=== PATIENT | male | born 1945 | race Caucasian/White ===

== ENCOUNTER → 2023-10-04 11:05 | Outpatient (REF) | payer MEDICARE, BC, SELFPAY | LOC: RAD 11:05 | PROVIDERS: ATTENDING PHYSICIAN Nurse Practitioner Family | DX: L03.116 Cellulitis of left lower limb (principal) | CPT/HCPCS: 73564 ==

== ENCOUNTER → 2023-12-18 11:47 | Outpatient (REF) | payer MEDICARE, BC, SELFPAY | LOC: CLAB 11:47 | PROVIDERS: ATTENDING PHYSICIAN Specialist | DX: C67.9 Malignant neoplasm of bladder, unspecified (principal) | CPT/HCPCS: 88112 ==

== ENCOUNTER → 2023-12-30 12:50 | Outpatient (REF) | payer MEDICARE, BC, SELFPAY | LOC: RAD 12:50 | PROVIDERS: ATTENDING PHYSICIAN Surgery Vascular Surgery; FAMILY PHYSICIAN Internal Medicine; OTHER PHYSICIAN Family Medicine; OTHER PHYSICIAN Internal Medicine Rheumatology; REFERRING PHYSICIAN Physician Assistant | DX: I73.9 Peripheral vascular disease, unspecified (principal); M11.20 Other chondrocalcinosis, unspecified site; M15.9 Polyosteoarthritis, unspecified; M17.10 Unilateral primary osteoarthritis, unspecified knee; M48.061 Spinal stenosis, lumbar region without neurogenic claudication; M65.88 Other synovitis and tenosynovitis, other site | CPT/HCPCS: 73560; 93922; 93925 ==

== ENCOUNTER → 2024-01-17 14:24 | Outpatient (REF) | payer MEDICARE, BC, SELFPAY | LOC: RCS 14:24 | PROVIDERS: ATTENDING PHYSICIAN Nurse Practitioner Family | DX: R60.0 Localized edema (principal); R06.02 Shortness of breath; I50.32 Chronic diastolic (congestive) heart failure; I48.0 Paroxysmal atrial fibrillation | CPT/HCPCS: 93005 ==

== ENCOUNTER → 2024-01-31 15:52 | Outpatient (REF) | payer MEDICARE, BC, SELFPAY | LOC: HWRCS 15:52 | PROVIDERS: ATTENDING PHYSICIAN Nurse Practitioner Family | DX: R60.0 Localized edema (principal); R06.02 Shortness of breath; I50.32 Chronic diastolic (congestive) heart failure | CPT/HCPCS: 93306 ==

== ENCOUNTER 2024-02-10 09:51 | Day surgery (SDC) | payer MEDICARE, BC, SELFPAY ==
[2024-02-10] VITALS (25 sets, daily range): BP systolic 81–135; BP diastolic 54–84; BMI 16.9
[2024-02-10] MEDS: NSS 151 ML IV (10:54)
[2024-02-10] MEDS: SUBLIMAZE 25 MCG IV (13:47)
--- NOTE | 2024-02-10 13:49 | ITS.CL.CATH ---
Cable Dispatcher - Catheterization
Cardiac Catheterization
Procedure Report:
CARDIAC CATHETERIZATION REPORT
Date of Procedure: 02/10/2024
Referring: Valarie Pascal MD
Indication: Worsening exertional dyspnea with worsening left ventricular dysfunction
HEMODYNAMIC DATA
AO: 109/62
LV: 114/20
PCWP: 20
PA: 62/24
RV: 62/11
RA: 7
Oximetry: Ao 87%, PA 63%, cardiac output 4.0, cardiac index 2.5
There is a mean gradient of 7 mmHg across aortic valve
LEFT VENTRICULOGRAPHY: Moderate anterolateral hypokinesis with EF 37%
CORONARY ANGIOGRAPHY
Dominance: Right
Left Main: Normal
LAD: Severely calcified with 20% mid LAD stenosis. The moderate to large D1 has 50% ostial stenosis.
Circumflex: 40% mid circumflex stenosis distal to the takeoff of small OM1 and OM 2 and a large OM 3. The circumflex continues on to supply a medium sized OM 4 and a single left posterolateral branch. There is 60% ostial stenosis of OM 3
RCA: 40% mid RCA stenosis with otherwise mild luminal irregularities
Closure Device: None. We chose to use the left femoral artery for access as the patient had a prior BKA on the left side. Radial pulses were nonpalpable bilaterally. The left common femoral artery was accessed with a micropuncture needle and a 6
Turkish sheath was placed. We were initially unable to pass a standard table J-wire through the left common iliac artery stent. A contrast injection from the right femoral artery sheath demonstrates moderate calcific disease of the external iliac
artery. Interestingly, the common femoral artery stent appears angiographically widely patent. We were able to get a Glidewire through the stent without difficulty but could not advance a JR4 6 Turkish diagnostic catheter through the stented
segment. At this point we placed a 4 Turkish angled glide catheter easily through the stented segment into the aorta. Wire exchange was made for the table J-wire but we were still unable to pass a JR4 catheter through the stented segment. A 6 x 35
Cordis Brite tip sheath was then advanced into the left femoral artery. This sheath also could not be advanced through the stented segment. We then placed an angled glide catheter into the aorta again and switched for the angled Glidewire. We
were able to get the JR4 catheter into the aorta and over the JR4 we were able to advance the 6 Turkish sheath into the aorta. From this point on the procedure was routine.
Radiation dose (mGy): 309
DAP (cm2.Gy): 30.8
Fluoroscopy time: 10.6 minutes
CONCLUSIONS:
1. Mildly elevated left heart filling pressures with moderate pulmonary hypertension
2. Mild aortic stenosis with mean gradient 7 mmHg. The calculated cardiac output was 4.0.
3. Stable mild CAD as described
4. Anterolateral hypokinesis with EF 37%
RECOMMENDATIONS: Continue medical therapy for CAD and LV dysfunction
Copy to: Valarie Pascal MD, Abdelrahman Edwards,
Ronnie Stevens MD, FAC, [facility]
[2024-02-10] MEDS: NSS 1000 IV (13:50)
[2024-02-10] MEDS: TYLENOL 650 MG PO (16:03)
== END 2024-02-10 17:31 | disposition home or self-care (01) ==
LOC: CATH 09:51
PROVIDERS: ATTENDING PHYSICIAN Internal Medicine Cardiovascular Disease; FAMILY PHYSICIAN Internal Medicine
DX: I25.10 Atherosclerotic heart disease of native coronary artery without angina pectoris (principal); R06.09 Other forms of dyspnea; I48.0 Paroxysmal atrial fibrillation; I11.0 Hypertensive heart disease with heart failure; I50.32 Chronic diastolic (congestive) heart failure; E78.5 Hyperlipidemia, unspecified; I27.20 Pulmonary hypertension, unspecified; I35.0 Nonrheumatic aortic (valve) stenosis; E11.9 Type 2 diabetes mellitus without complications; Z87.891 Personal history of nicotine dependence; Z85.6 Personal history of leukemia; Z85.89 Personal history of malignant neoplasm of other organs and systems; Z85.51 Personal history of malignant neoplasm of bladder; Z79.82 Long term (current) use of aspirin; Z79.84 Long term (current) use of oral hypoglycemic drugs
CPT/HCPCS: 93460; C1894; Q9967

== ENCOUNTER → 2024-02-19 15:21 | Outpatient (REF) | payer MEDICARE, BC, SELFPAY ==
[2024-02-19 16:33] LABS: % Basophils 0.6 % (0-2); % Eosinophils 1.4 % (0-6); % Immature Granulocytes 0.6 % (0-0.5); % Lymphocytes 8.7 % (20.5-51.1); % Monocytes 8.8 % (1.7-9.3); % Neutrophils 79.9 % (42.2-75.2); Absolute Basophils 0.1 10^3/uL (0-0.2); Absolute Eosinophils 0.1 10^3/uL (0-0.7); Absolute Immature Granulocytes 0.1 10^3/uL (0-0.05); Absolute Lymphocytes 0.8 10^3/uL (1.2-3.4); Absolute Monocytes 0.8 10^3/uL (0.1-0.6); Absolute Neutrophils 7.1 10^3/uL (1.4-6.5); Hematocrit 46.1 % (39.0-52.0); Hemoglobin 15.9 g/dL (13.0-18.0); Mean Corp Hgb Conc. 34.5 g/dL (33.0-37.0); Mean Corpuscular Hgb 32.3 pg (27.0-31.0); Mean Corpuscular Volume 93.7 fL (80.0-94.0); Mean Platelet Volume 9.1 fL (7.4-10.4); Nucleated Red Blood Cells % 0 % (-); Platelet Count 270 10^3/uL (130-400); Red Blood Cell Count 4.92 10^6/uL (4.70-6.10); Red Cell Dist. Width 13.6 % (11.5-14.5); White Blood Cell Count 8.8 10^3/uL (4.8-10.8)
[2024-02-19 16:34] LABS: Urine Albumin Negative (Neg - Trace); Urine Bilirubin Negative (Negative); Urine Character Clear (Clear); Urine Color Yellow; Urine Glucose Negative (Negative); Urine Ketone Negative (Negative); Urine Leukocyte Trace (Negative); Urine Nitrite Negative (Negative); Urine Occult Blood Negative (Negative); Urine Urobilinogen Negative (Neg - 1+)
[2024-02-19 16:51] LABS: ALT (SGPT) 18 U/L (0-50); AST (SGOT) 27 U/L (17-59); Albumin 3.8 g/dl (3.5-5.0); Alkaline Phosphatase 96 U/L (38-126); Blood Urea Nitrogen 14 mg/dl (9-20); Calcium 9.5 mg/dl (8.4-10.2); Carbon Dioxide 22 mmol/L (22-30); Chloride 102 mmol/L (98-107); Glucose 105 mg/dl (70-99); HDL Cholesterol 49 mg/dl; LDL Cholesterol, Calculated 59 mg/dl; Potassium 4.5 mmol/L (3.5-5.1); Sodium 136 mmol/L (135-145); Total Bilirubin 1.1 mg/dl (0.2-1.3); Total Cholesterol 125 mg/dl (50-199); Total Protein 6.5 g/dl (6.3-8.2); Triglyceride 89 mg/dl (10-149); Very Low Density Lipoprotein 17 mg/dl (0-30); eGFR > 60.00
[2024-02-19 16:57] LABS: NT-proBNP 7460 pg/ml
[2024-02-19 17:24] LABS: PSA, Total - Screen 3.17 ng/ml (0.0-4.0); TSH Reflex To Free T4 2.41 uIU/ml (0.47-4.68)
[2024-02-19 17:53] LABS: Urine Bacteria Few (Negative); Urine Red Blood Cell 0-2 /HPF (0-2); Urine White Cell 0-2 /HPF (0-5)
[2024-02-20 09:26] LABS: Glycohemoglobin (HgbA1c) 5.6 % (4.0-5.6)
== END ==
LOC: REG 15:21
PROVIDERS: ATTENDING PHYSICIAN Surgery Vascular Surgery; FAMILY PHYSICIAN Internal Medicine; REFERRING PHYSICIAN Nurse Practitioner Family
DX: I73.9 Peripheral vascular disease, unspecified (principal); I10 Essential (primary) hypertension; I50.32 Chronic diastolic (congestive) heart failure; I48.0 Paroxysmal atrial fibrillation; E78.2 Mixed hyperlipidemia; Z12.5 Encounter for screening for malignant neoplasm of prostate; R53.83 Other fatigue; R60.0 Localized edema; M54.50 Low back pain, unspecified; R06.02 Shortness of breath
CPT/HCPCS: 36415; 80053; 80061; 81003; 81015; 83036; 83880; 84443; 85025; G0103

== ENCOUNTER 2024-03-06 15:10 | Inpatient (IN) | payer MEDICARE, BC, SELFPAY ==
[2024-03-06] VITALS (16 sets, daily range): BP systolic 72–118; BP diastolic 52–86; BMI 17.7
--- NOTE | 2024-03-06 10:38 | ED.GENMED ---
History of Present Illness
General
Chief Complaint: Breathing Problem
Source: patient
Exam Limitations: none
Time Seen by Provider: 03/06/24 10:07
History of Present Illness
History of Present Illness:
79 year old male presents with sob, fatigue, and hemoptysis. He has history of a-fib, copd, chf, cardiac arrest, vascular disease. On aspirin, but no other thinners. Has been traveling recently for work. Was in [place] this past week. He notes a
fall in the airport 5 days ago onto his left side. Two days ago, he coughed or vomitied up blood. He has no chest pain. He notes SOB. He took his lasix two days ago and notes improved edema in the right leg. He has left leg BKA. He spoke with
PMD and was adivsed to come here. He follows with [facility] cardiology. No fever. No other complaints at this time.
Past History
Past History
ED Past Medical History: Arrthythmia (atrial fib), Cancer, CHF, HTN, Hypercholesterolemia, [place] and Other (Diverticulitis, PAD)
ED Past Surgical History: Bowel resection, Cardiac (Stents, Ablation, carotid artery surgery,), Orthopedic (Bilateral knee replacements, right ankle replacement and Left shoulder replacement) and Other (Femoral bypass right leg, hernia repair. Left
leg stent and angioplasty)
Social History
Tobacco: Former smoker
Alcohol: Occasional ([facility])
Drug: None
Personal:
Living: with family
Employment: Employed
Family History
Family History: Other (Noncontributory)
Phy Exam
Physical Exam
Physical Exam:
General: Somewhat unkempt cachectic appearing male, no acute distress
HEENT: NC/AT
Heart: RRR
LUngs: Clear, no obvious wheeze or rales
ExT: no cyanosis, left BKA, no edema in right leg
Skin: Warm, no rashes
Neuro: Alert and oriented, no unilateral deficit
Abd: soft, nontender, nondistended
Scores
Heart Failure Risk
Heart Failure Risk Score: Not Applicable
Course
Orders/Labs/Results
Orders:
Orders
03/06/24 10:19
EKG [Electrocardiogram (*1)] Urgent
Reason for Study: Shortness of Breath
03/06/24 10:20
EKG- Treatment ONCE
03/06/24 10:30
Oxycodone [Roxicodone] 5 mg PO NOW STA
03/06/24 10:31
CT Chest Pe Study Urgent
Comment:
Reason For Exam: sob, hemoptysis
EKG- Treatment ONCE
03/06/24 10:54
Complete Blood Count/With Diff Urgent
Comprehensive Metabolic Panel Urgent
NT-proBNP Urgent
Troponin I Urgent
03/06/24 12:41
Furosemide [Lasix] 40 mg IV NOW STA
Abnormal Lab Results
03/06/24
10:54
RBC 4.16 L 10^6/uL
(4.70-6.10)
MCV 94.7 H fL
(80.0-94.0)
MCH 32.9 H pg
(27.0-31.0)
Absolute Lymphs (auto) 0.5 L 10^3/uL
(1.2-3.4)
Absolute Monos (auto) 0.7 H 10^3/uL
(0.1-0.6)
Neutrophils % 80.7 H %
(42.2-75.2)
Lymphocytes % 7.1 L %
(20.5-51.1)
Monocytes % 9.9 H %
(1.7-9.3)
Sodium 132 L mmol/L
(135-145)
Carbon Dioxide 21 L mmol/L
(22-30)
Troponin I 0.113 H* ng/ml
Total Protein 5.5 L g/dl
(6.3-8.2)
Albumin 3.1 L g/dl
(3.5-5.0)
03/06/24 10:54
03/06/24 10:54
Vital Signs
Initial and Last Documented VS:
Initial Vital Signs
Temp Pulse Resp BP Pulse Ox
97.8 F 88 20 113/83 98
03/06/24 09:38 03/06/24 09:38 03/06/24 09:38 03/06/24 09:38 03/06/24 09:38
Last Documented Vital Signs
Temp Pulse Resp BP Pulse Ox
97.8 F 67 16 96/57 95
03/06/24 09:38 03/06/24 12:30 03/06/24 12:30 03/06/24 12:00 03/06/24 10:42
MDM/Problems Addressed
Differential Diagnosis Includes:
SOB, hemoptysis. Consider pneumonia, PE, ACS. Will EKG, troponin, bnp and CT PE study ordered pending renal functions
Chronic conditions affecting care:
A-fib, COPD, CAD, CHF
Acute Exacerbation and/or Progression of Chronic Illness:
This could be acute exacerbation of chronic CHF
*Critical Care Note
Total Time (30-74mins, 75-104mins- exclusive of procedures): Not Applicable
Data Reviewed
Review of Other/Old Records Reveals: Other (Most recent echo from January of this year shows EF of 25-30%)
Update Note
Update Note:
CT shows no PE. There moderate right pleural effusion and small left pleural effusion. BNP is 9320 with elevated troponin. Will admit to medicine for CHF flare.
ED Attending Note
-
Portions of this chart may have been created with voice recognition software.� Occasional wrong word or��sound alike� substitutions may have occurred due to the inherent limitations of voice recognition software.
Discharge Plan
Departure
Patient Disposition: Admit
Date of Disposition: 03/06/24
Time of Disposition: 12:57
Admit to: Telemetry
Presentation/result/management discussed w/ accepting /DO: Hospitalist
Discharge Problem:
CHF (congestive heart failure)
Prescriptions:
No Action
tamsulosin 0.4 MG capsule
0.4 mg PO DAILY
pantoprazole 40 MG tablet,delayed release (DR/EC)
40 mg PO DAILY
aspirin 81 MG tablet,chewable
81 mg PO DAILY
rosuvastatin 20 MG tablet
20 mg PO DAILY
docusate sodium [Colace] 100 MG capsule
100 mg PO HSPRN PRN (Reason: constipation)
furosemide 40 mg Tablet
40 mg PO DAILY
megestrol 20 mg Tablet
20 mg PO BID
eszopiclone 3 mg Tablet
3 mg PO HS
Jardiance 10 mg Tablet
10 mg PO HS
morphine 15 mg tablet extended release
15 mg PO BIDPRN PRN (Reason: severe pain)
sildenafil 25 mg Tablet
25 mg PO DAILYPRN PRN (Reason: ed)
metoprolol succinate 25 mg Tablet Extended Release 24 Hr
25 mg PO BID
duloxetine 30 mg Capsule,Delayed Release(Dr/Ec)
30 mg PO DAILY
cholecalciferol (vitamin D3) [Vitamin D3] 50 mcg (2,000 unit) Tablet
50 mcg PO DAILY
oxycodone 5 mg tablet
5 mg PO Q4HPRN PRN (Reason: severe pain)
gabapentin 800 mg Tablet
800 mg PO DAILYPRN PRN (Reason: phantom pain)
Patient Comments:
03/06/24: No [facility] records, eCW has it last taken on 04/25/23. Patient may have leftover tablets from that time.
Referrals:
Abdelrahman Edwards DO [Family Provider] -
Interventions
Interventions:
*Risk Screen - Suicide Last Done: 03/06/24 10:42
*General Assessment Last Done: 03/06/24 10:42
*Neglect/Abuse Screening Last Done: 03/06/24 10:42
ED- Fall Risk Assessment Last Done: 03/06/24 10:42
*ED COVID-19 Vaccine History Last Done: 03/06/24 10:42
ED- Cardiac Assessment Last Done: 03/06/24 10:42
ED- Pulmonary Assessment Last Done: 03/06/24 10:42
Discharge Date and Time
Print Language: SYRIAC
[2024-03-06] MEDS: ROXICODONE 5 MG PO ×3 (10:59→23:09)
[2024-03-06 11:12] LABS: % Basophils 0.5 % (0-2); % Eosinophils 1.3 % (0-6); % Immature Granulocytes 0.5 % (0-0.5); % Lymphocytes 7.1 % (20.5-51.1); % Monocytes 9.9 % (1.7-9.3); % Neutrophils 80.7 % (42.2-75.2); Absolute Eosinophils 0.1 10^3/uL (0-0.7); Absolute Lymphocytes 0.5 10^3/uL (1.2-3.4); Absolute Monocytes 0.7 10^3/uL (0.1-0.6); Hematocrit 39.4 % (39.0-52.0); Hemoglobin 13.7 g/dL (13.0-18.0); Mean Corp Hgb Conc. 34.8 g/dL (33.0-37.0); Mean Corpuscular Hgb 32.9 pg (27.0-31.0); Mean Corpuscular Volume 94.7 fL (80.0-94.0); Mean Platelet Volume 9.2 fL (7.4-10.4); Nucleated Red Blood Cells % 0 % (-); Platelet Count 185 10^3/uL (130-400); Red Blood Cell Count 4.16 10^6/uL (4.70-6.10); Red Cell Dist. Width 13.7 % (11.5-14.5); White Blood Cell Count 7.5 10^3/uL (4.8-10.8)
[2024-03-06 11:19] LABS: ALT (SGPT) 16 U/L (0-50); AST (SGOT) 24 U/L (17-59); Albumin 3.1 g/dl (3.5-5.0); Alkaline Phosphatase 76 U/L (38-126); Blood Urea Nitrogen 17 mg/dl (9-20); Calcium 8.7 mg/dl (8.4-10.2); Carbon Dioxide 21 mmol/L (22-30); Chloride 101 mmol/L (98-107); Estimated Creatinine Clearance 65 ml/min; Glucose 97 mg/dl (70-99); Potassium 3.7 mmol/L (3.5-5.1); Sodium 132 mmol/L (135-145); Total Protein 5.5 g/dl (6.3-8.2); eGFR > 60.00
[2024-03-06 11:39] LABS: NT-proBNP 9320 pg/ml; Troponin I 0.113 ng/ml
--- NOTE | 2024-03-06 13:52 | HPS.HSE ---
Family Physician
-
Family Physician: Abdelrahman Edwards
Chief Complaint
-
sob, cp, 5 days ago, fall abrasions left shoulder left forarm
History of Present Illness
79 year old male presents with sob, fatigue, and hemoptysis. He was in [place] this past week and fell 5 days ago on his left side while in [place] he tripped and fell sustaining abrasions to left shoulder and left forearm. He also reports
while walking 1/2 mile in airport he kept getting chest pressure with sob and had to take a rest. he denies Cp at present time but reports SOB and BARRIOS. Cxr shows bilat plueral effusions. He also reports taking his lasix two days ago and notes
improved edema in the right leg. He has left leg BKA. He has had wt loss 70 lbs past year and has been on megace for 1.5 months with no weight gain yet. He denies fever, chills, cp , sob, abd pain, nausea, vomiting, diarrhea or urinary
symptoms. He has PMH Chronic Diastolic Chf, Cardiomyopathy reduced EF 25-30%, a-fib with hx ablation,, copd mild, chf, cardiac arrest, cad/ stents 2016, PAD s/p left leg stent, left BKA, former smoker ,diverticulitis. with bowel resection .
Medical History
Past Medical History
Past Medical History: Reports Other
Additional Past Medical History:
atrial fib
Ablation, carotid artery surgery
Chronic diastolic CHF reduced EF 25-30%
HTN
Hypercholesterolemia
CAD/ [place]/Stents 2015
cardiac arrest x2 2015
Diverticulitis/bowel resection
PAD s/p Femoral bypass right leg, Left leg stent and angioplasty
Left BKA
copd
former smoker 2.5 ppd x 40 years stopped 2012
erectile dysfunction
Past Surgical History: Reports Other
Additional Past Surgical History:
PAD s/p Femoral bypass right leg, Left leg stent and angioplasty
Left BKA 2021
Hernia repair
Bowel resection
Stents,
Ablation
carotid artery surgery
Bilateral knee replacements
right ankle replacement and Left shoulder replacement
Social History
Tobacco: Former Smoker ( former smoker 2.5 ppd x 40 years stopped 2012)
Alcohol: Daily (1oz southern comfort with peach juice)
Drug: None
Personal: Single
Living: Alone
Employment: Retired
Family History
Family History: Other (father Mi age 85 mom dementia)
Allergies / Home Medications
Allergies reflects when Allergies were last updated in [employer].
Home Medications with original date entered in [employer]
Allergy/Medication List:
Allergies
Allergy/AdvReac Type Severity Reaction Status Date / Time
clopidogrel [From Plavix] Allergy Rash Verified 03/06/24 09:40
niacin Allergy Rash Verified 03/06/24 09:40
Home Medications
tamsulosin 0.4 mg capsule 0.4 mg PO DAILY Urinary issue 05/03/20
pantoprazole 40 mg tablet,delayed release 40 mg PO DAILY Gastrointestinal issue 08/30/20
aspirin 81 mg chewable tablet 81 mg PO DAILY Blood clot prevention/tx 01/19/21
rosuvastatin 20 mg tablet 20 mg PO DAILY High cholesterol 01/19/21
docusate sodium 100 mg capsule (Colace) 100 mg PO HSPRN PRN constipation 04/27/21
empagliflozin 10 mg tablet (Jardiance) 10 mg PO HS 02/10/24
eszopiclone 3 mg tablet 3 mg PO HS 02/10/24
furosemide 40 mg tablet 40 mg PO DAILY 02/10/24
megestrol 20 mg tablet 20 mg PO BID 02/10/24
morphine 15 mg tablet,extended release 15 mg PO BIDPRN PRN severe pain 02/10/24
cholecalciferol (vitamin D3) 50 mcg (2,000 unit) tablet (Vitamin D3) 50 mcg PO DAILY 03/06/24
duloxetine 30 mg capsule,delayed release 30 mg PO DAILY 03/06/24
gabapentin 800 mg tablet 800 mg PO DAILYPRN PRN phantom pain 03/06/24
metoprolol succinate 25 mg tablet,extended release 24 hr 25 mg PO BID 03/06/24
oxycodone 5 mg tablet 5 mg PO Q4HPRN PRN severe pain 03/06/24
sildenafil 25 mg tablet 25 mg PO DAILYPRN PRN ed 03/06/24
Review of Systems
-
History Source: Patient
A 12 point ROS was completed and negative except as noted: Yes
Constitutional: Reports Weight Loss (70 lbs past year ); Denies Fever or Chills
EENT: Denies Sore Throat or Runny Nose
Respiratory: Reports Cough, Hemoptysis and Trouble Breathing
Cardiac: Reports Chest Pain (5 days ago with walking ); Denies Diaphoresis, Palpitations or Syncope
Abdomen/GI: Denies Abdominal Pain, Nausea, Vomiting, Diarrhea, Constipated, Bloody Stools or Black Stools
: Denies Dysuria, Frequency, Flank Pain, Incontinence, Difficulty Voiding or Urgency
Musculoskeletal: Reports Other (left BKA); Denies Joint Pain or Edema
Skin: Reports Other (abrasions to left shoulder left forearm); Denies Itching or Rash
Neurological: Denies Dizzy, Headache or Weakness
Endocrine: Reports No Symptoms
Hematologic/Lymphatic: Reports No Symptoms
Psych: Reports Calm
Physical Exam
Vital Signs
Vital Signs
Temp Pulse Resp BP Pulse Ox
97.8 F 67 16 96/57 95
03/06/24 09:38 03/06/24 12:30 03/06/24 12:30 03/06/24 12:00 03/06/24 10:42
Physical Exam
General: Comfortable, Conversant and Cachectic; No Pain, Fever or Chills
HEENT: NormoCephalic, Anicteric, Moist mucous membranes, PERRLA, [place] Conjunctivae, No Ptosis and Neck Nontender
Respiratory: Other (diminished biat lung brown)
Cardiac: S1/S2 and Regular Rhythm; No Murmur, Rub, Gallop, Peripheral Edema or JVD
Breast: Deferred by me
GI: Soft, Non Tender, Non Distended, Normal Bowel Sounds and No Hepatosplenomegaly
Rectal: Deferred by Provider
Genito-urinary: Deferred by me
Musculoskeletal: No Clubbing, No Cyanosis, No Edema and Other (left bkaa wears prosthetic leg )
Skin: Warm, Dry and Other (abrasions to left shoulder left forearm); No Rash
Neuro: AO x 3, No Motor Deficits, Nonfocal/grossly intact, Cranial Nerves Intact and No Sensory Deficits; No Slurred Speech, Facial Droop, Tremors or Sedated
Psych: Calm
Laboratory Results
-
03/06/24 10:54
03/06/24 10:54
Laboratory Results
Total Bilirubin 1.0 mg/dl (0.2-1.3) 03/06/24 10:54
AST 24 U/L (17-59) 03/06/24 10:54
ALT 16 U/L (0-50) 03/06/24 10:54
Alkaline Phosphatase 76 U/L (38-126) 03/06/24 10:54
Troponin I 0.113 ng/ml H* 03/06/24 10:54
Impression/Plan
-
Impression/Plan:
admit to TELE
#Acute chronic Diastolic CHF/ Cardiomyopathy EF 25-30%
I/o, weights
- Iv lasix 40 mg given in Er bp soft 100/60
cont Iv lasix 40 mg daily
- consult CBC cards
- cont jardiance 10 mg hs with hold parameteres
Cath 02/10/24: 1. Mildly elevated left heart filling pressures with moderate pulmonary hypertension
2. Mild aortic stenosis with mean gradient 7 mmHg. The calculated cardiac output was 4.0.
3. Stable mild CAD as described
4. Anterolateral hypokinesis with EF 37%
#Mod right sided /left sided plueral effusions
96% RA
- consult Ir for thoracentesis with cytology and fluid analysis
2D echo 01/31/24
ejection fraction is 25-30%. Global hypokinesis. Wall motion
also appears to be consistent with conduction abnormality.
-Mod LVH with speckled appearance (consider amyloidosis and differential diagnosis)
Stage III diastolic dysfunction suggestive of restrictive filling pattern and increased filling pressures
-Normal right ventricular size and function.
-Moderately dilated left atrium. Moderately dilated right atrium.
-Mild aortic stenosis; peak/mean gradients 13/7 mmHg, calculated XANDER 1.6 cm2.
Compared to previous echo on 12/18/2021, there is a notable decline in LVEF
(previously 45%).
#Non ischemic myocardial injury
no current cp had 5 days ago with walking [place]
- trop 0.113 will trend was 0.130 in 2019
- consult CBC cards
-EKG: NSR with PVC's LBBB HR 73 bpm, qtc 500 ms
# Trip fall left shoulder /left forearm abrasion 5 days old
-wound care
COPD mild - no Acute exac
former smoker 2.5 ppd x 40 years stopped 2012
- does not use inhaler
saw pulm over 1 year ago
#Parox Afib
#pvi 2018
cont asa 81 mg , hold BB
#Chronic LBBB
# Non sustatined VT 06/2021
# Hypotension/ HTN- benign
96/57
hold BB
#Hypercholesterolemia
-check lipid profile
- cont crestor
#CAD/ [place]/Stents 2015
#cardiac arrest x2 2015
cont asa 81 mg , hold Metoprolol 25mg bid due to hypotension
#Diverticulitis/bowel resection
#PAD s/p Femoral bypass right leg, Left leg stent and angioplasty
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
-cont gabapentin phantom leg pain, morphine 15mg bid prn mod pain , oxycodone 5mg q4prn severe pain
#Insomnia
cont lunesta or equivalent
#Chronic cachexia with wt loss over 1 year -bmi 17.7
- pt started megace 1.5 months ago no weight gain yet
is drinking carnation instant breakfast and protein 35 gm
- consult dietary
#Depression
cont cymbalta
#erectile dysfunction
hold sildenafil
dvt proph
sq lovenox
Full code
--- NOTE | 2024-03-06 14:59 | CON.CAR ---
Addendum entered and electronically signed by Arnaldo Parker MD 03/06/24 17:21:
79 yo male with NICM EF 25-30%, chronic systolic HF admitted with acute on chronic systolic HF. Lasix non-compliance is a contributing factor. Exam with RRR, no murmurs, trace RLE, s/p R AKA. Cr 0.7.
He is s/p thoracentesis today for 1.3 L.
We will start lasix 40mg IV daily tomorrow.
GDMT has been limited by hypotension.
Original Note:
Consultation
Consultation Request
Date/Time Consultation Requested: 03/06/24 1445
Date/Time Consultation Performed: 03/06/24 1522
Requesting Provider: Dilma Alvarez NP
Performing Provider: Mary KOWALSKI for Dr. Parker
Reason for Consultation: CHF
Medical History
-
Chief Complaint: SOB
History of Present Illness:
79 y/o male with PAF (sotalol recently stopped so he could get started on GDMT for his recently worsened CM)- stopped Eliquis on his won, hx PVI 08/2018, hypertension, NICM EF 25-30%, non-obstructive CAD, CML, bladder cancer, COPD, dyslipidemia, PAD
with hx right AKA who is here for evaluation. Briefly, on Saturday he was rushing to get to a plane and did so for about 1/2 mile in [place] and developed chest discomfort. He got on the plane and it remained. When he got to [place], he got a
wheelchair to his car and felt dizzy and brought himself to the ground. Then was able to get up and he drove home. He has had SOB over the past few days. 2 days ago he vomited up 4 oz bright red blood per patient. His weight has been down and he
recently was started on Megace to help. He sometimes misses Lasix so he doesn't have to be 'tied to the toilet'. He has mild LE edema. Chest CT and BNP suggestive CHF and he is admitted for further management. He is s/p thoracentesis.
Past Medical History
Past Medical History: Arrhythmias, CAD, Cancer, CHF, COPD, HTN, Hypercholesterolemia and Other (as above)
Social History
Tobacco: Former Smoker
Family History
Family History: Reviewed & Not Pertinent
Allergies / Home Medications
Allergy/AdvReac Type Severity Reaction Status Date / Time
clopidogrel [From Plavix] Allergy Rash Verified 03/06/24 09:40
niacin Allergy Rash Verified 03/06/24 09:40
�Medication �Instructions �Recorded �Confirmed �Type
tamsulosin 0.4 mg capsule 0.4 mg PO DAILY Urinary issue 05/03/20 03/06/24 History
pantoprazole 40 mg tablet,delayed 40 mg PO DAILY Gastrointestinal 08/30/20 03/06/24 History
release issue
aspirin 81 mg chewable tablet 81 mg PO DAILY Blood clot 01/19/21 03/06/24 History
prevention/tx
rosuvastatin 20 mg tablet 20 mg PO DAILY High cholesterol 01/19/21 03/06/24 History
docusate sodium 100 mg capsule 100 mg PO HSPRN PRN constipation 04/27/21 03/06/24 History
(Colace)
empagliflozin 10 mg tablet 10 mg PO HS 02/10/24 03/06/24 History
(Jardiance)
eszopiclone 3 mg tablet 3 mg PO HS 02/10/24 03/06/24 History
furosemide 40 mg tablet 40 mg PO DAILY 02/10/24 03/06/24 History
megestrol 20 mg tablet 20 mg PO BID 02/10/24 03/06/24 History
morphine 15 mg tablet,extended 15 mg PO BIDPRN PRN severe pain 02/10/24 03/06/24 History
release
cholecalciferol (vitamin D3) 50 50 mcg PO DAILY 03/06/24 03/06/24 History
mcg (2,000 unit) tablet (Vitamin
D3)
duloxetine 30 mg capsule,delayed 30 mg PO DAILY 03/06/24 03/06/24 History
release
gabapentin 800 mg tablet 800 mg PO DAILYPRN PRN phantom pain 03/06/24 03/06/24 History
metoprolol succinate 25 mg 25 mg PO BID 03/06/24 03/06/24 History
tablet,extended release 24 hr
oxycodone 5 mg tablet 5 mg PO Q4HPRN PRN severe pain 03/06/24 03/06/24 History
sildenafil 25 mg tablet 25 mg PO DAILYPRN PRN ed 03/06/24 03/06/24 History
Review of Systems
-
History Source: Patient
All other systems: Negative unless noted
Respiratory: Trouble Breathing
Physical Exam
Vital Signs
Temp Pulse Resp BP Pulse Ox
97.8 F 67 16 96/57 95
03/06/24 09:38 03/06/24 12:30 03/06/24 12:30 03/06/24 12:00 03/06/24 10:42
Lab Results
Troponin I 0.113 ng/ml H* 03/06/24 10:54
Vwe-O-Iuptxioaipf Pept 9320 pg/ml 03/06/24 10:54
Physical Exam
General: Well Developed and No Apparent Distress
HEENT: Normocephalic and Anicteric
Respiratory: Crackles (right-sided)
Cardiac: Regular Rhythm and Peripheral Edema (mild RLE edema)
Musculoskeletal: Edema
Skin: Warm and Dry
Neuro: AO x 3
Psych: Calm
Impression / Plan
-
Fbepm-mz-ndokirt HFrEF:
-Chest CT scan and BNP and assessment c/w CHF exacerbation
-most recent echo as below
-for his moderate pleural effusion, he is s/p thoracentesis
-agree with IV Lasix, which requires intensive monitoring
NICM:
-EF 25-30% on recent echo
-continue Toprol and Jardiance
-cannot add on Entresto or MRA at this time due to BP limitations
COPD:
-not wheezing, nodules on CT scan
-pulmonary is consulted
PAF:
-stable in SR
-continue metoprolol- will add hold parameters
-he stopped Eliquis on his own due to nuisance bruising and bleeding. I told him that I recommend he go back on ([id number] score is at least 5 for age, hypertension, CHF, CAD). However, he had what sounds to be significant hematemesis and that
would need to be worked up first- will defer that work-up to primary team.
CAD:
-recent cath as below
-on ASA, statin, BB
Abnormal troponin:
-suspect acute non-ischemic myocardial injury in setting of CHF exacerbation
-can trend
Data Reviewed
-
EKG: Tracing Personally Visualized and interpreted (SR with PVC, 1st degree AVB, LBBB)
CT Scan: Report Reviewed by me (CT scan: No evidence for pulmonary embolism. Findings suggestive of CHF with moderate right-sided and small left-sided pleural effusions. Subtotal atelectasis of the right lower lobe. Multiple irregular airspace
opacities/nodules within the right upper lobe and also within the right middle lobe. )
Medical Tests (Nuc Med, Echo etc): Report Reviewed by me (Cardiac cath 02/10/24: Mildly elevated left heart filling pressures with moderate pulmonary hypertension. Mild aortic stenosis with mean gradient 7 mmHg. The calculated cardiac output was 4.0.
Stable mild CAD. Anterolateral hypokinesis with EF 37%. PCWP 20. 50.3 kg day of cath. ) and Other (Echo 01/31/24: EF 25-30%. Global hypokinesis. Wall motion appears c/w conduction abnormality. Moderate concentric LVH with speckled appearance. Stage
III DD. Moderately dilated atria. Mild aortic stenosis; peak/mean gradients 13/7 mmHg, calculated XANDER 1.6 cm2.)
Labs: Labs Reviewed by me
--- NOTE | 2024-03-06 15:56 | W.PN.UPDATE ---
Update Note
Progress Note Update
This note serves as an addendum to the H&P by MEGHANA Walters, on March 06, 2024.
History of Presenting Illness
79 year old male with past medical history of Chronic Diastolic Heart Failure, Cardiomyopathy reduced EF 25-30%, a-fib with hx ablation,, copd mild, chf, cardiac arrest, cad/ stents 2016, PAD s/p left leg stent, left BKA, former smoker,
diverticulitis with bowel resection, presented with recent intermittent chest pain, fall (with questionable syncope), shortness of breath and fatigue. He was in [place] this past week and [facility] when he was also having chest pains.
Physical Exam
General: Comfortable, Conversant and Cachectic; No Pain, Fever or Chills
HEENT: Normocephalic, Anicteric, Moist mucous membranes, PERRLA, [place] Conjunctivae, No Ptosis and Neck Nontender
Respiratory: Other (diminished biat lung brown)
Cardiac: S1/S2 and Regular Rhythm; No Murmur, Rub, Gallop, Peripheral Edema or JVD
Breast: Deferred by me
GI: Soft, Non Tender, Non Distended, Normal Bowel Sounds and No Hepatosplenomegaly
Rectal: Deferred by Provider
Genito-urinary: Deferred by me
Musculoskeletal: No Clubbing, No Cyanosis, No Edema and Other (left bkaa wears prosthetic leg )
Skin: Warm, Dry and Other (abrasions to left shoulder left forearm); No Rash
Neuro: AO x 3, No Motor Deficits, Nonfocal/grossly intact, Cranial Nerves Intact and No Sensory Deficits; No Slurred Speech, Facial Droop, Tremors or Sedated
Psych: Calm
Assessment/Plan
#Acute chronic Diastolic CHF/ Cardiomyopathy EF 25-30%
-Continue I/o, daily weights
- Iv lasix 40 mg given in Er bp soft 100/60
- cont Iv lasix 40 mg daily
- consult CBC cards, evaluation and recommendations appreciated
- cont jardiance 10 mg hs with hold parameteres
Cath 6/24/24: 1. Mildly elevated left heart filling pressures with moderate pulmonary hypertension
2. Mild aortic stenosis with mean gradient 7 mmHg. The calculated cardiac output was 4.0.
3. Stable mild CAD as described
4. Anterolateral hypokinesis with EF 37%
#Chest Pains in the Setting of CAD
-Consulted cardiology for a possible cath
-Trend troponins
#Mod right sided /left sided plueral effusions
96% RA
- consulted Ir for thoracentesis with cytology and fluid analysis
2D echo 01/31/24
ejection fraction is 25-30%. Global hypokinesis. Wall motion
also appears to be consistent with conduction abnormality.
-Mod LVH with speckled appearance (consider amyloidosis and differential diagnosis)
Stage III diastolic dysfunction suggestive of restrictive filling pattern and increased filling pressures
-Normal right ventricular size and function.
-Moderately dilated left atrium. Moderately dilated right atrium.
-Mild aortic stenosis; peak/mean gradients 13/7 mmHg, calculated XANDER 1.6 cm2.
Compared to previous echo on 12/18/2021, there is a notable decline in LVEF
(previously 45%).
#Non ischemic myocardial injury
no current cp had 5 days ago with walking [place]
- trop 0.113 will trend was 0.130 in 2019
- consult CBC cards
-EKG: NSR with PVC's LBBB HR 73 bpm, qtc 500 ms
# Trip fall left shoulder /left forearm abrasion 5 days old
-wound care
COPD mild - no Acute exac
former smoker 2.5 ppd x 40 years stopped 2012
- does not use inhaler
saw pulm over 1 year ago
#Parox Afib
#pvi 2018
cont asa 81 mg , hold BB
#Chronic LBBB
#Non sustained VT 06/2021
# Hypotension/HTN- benign
96/57
hold BB
#Hypercholesterolemia
-check lipid profile
- cont crestor
#CAD/ OR/Stents 2016
#cardiac arrest x2 2016
cont asa 81 mg , hold Metoprolol 25mg bid due to hypotension
#Diverticulitis/bowel resection
#PAD s/p Femoral bypass right leg, Left leg stent and angioplasty
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
-cont gabapentin phantom leg pain, morphine 15mg bid prn mod pain , oxycodone 5mg q4prn severe pain
#Insomnia
cont lunesta or equivalent
#Chronic cachexia with wt loss over 1 year -bmi 17.7
- pt started megace 1.5 months ago no weight gain yet
is drinking carnation instant breakfast and protein 35 gm
- consult dietary
#Depression
cont cymbalta
#erectile dysfunction
hold sildenafil
dvt proph
sq lovenox
Full code
[2024-03-06 16:19] LABS: Body Fluid pH 7.46
[2024-03-06 16:49] LABS: Body Fluid Amylase 34 U/L; Body Fluid Glucose 96 mg/dl; Body Fluid LDH 107 U/L; Body Fluid Protein 2.6 g/dl; Body Fluid Triglycerides < 30 mg/dl
--- NOTE | 2024-03-06 17:25 | PTCARENOTE ---
Received patient from ED via stretcher. Ambulated to bed with assistance x1 and single point cane. Assessed and oriented to room. joinery patternmaker reading NSR with first degree AV block and BBB. Call fan in close reach.
[2024-03-06] MEDS: LOVENOX 40 MG SC (18:03)
[2024-03-06 18:40] LABS: Body Fluid Mononuclear 80.5 %; Body Fluid Polymorphonuclear 19.5 %; Body Fluid WBC 354 /CUMM
[2024-03-06 18:42] LABS: Body Fluid Second Tech LD
[2024-03-06] MEDS: JARDIANCE 10 MG PO (21:10)
[2024-03-06] MEDS: TOPROL XL 25 MG PO (21:10)
[2024-03-07 01:04] LABS: Troponin I 0.112 ng/ml
[2024-03-07 03:43] VITALS: BP 96/58
[2024-03-07 06:00] VITALS: BMI 16.3
[2024-03-07] MEDS: ROXICODONE 5 MG PO ×3 (06:09→17:07)
[2024-03-07 07:14] VITALS: BP 104/56
[2024-03-07 08:59] LABS: % Basophils 0.5 % (0-2); % Eosinophils 2.8 % (0-6); % Immature Granulocytes 0.6 % (0-0.5); % Lymphocytes 12.5 % (20.5-51.1); % Monocytes 7.6 % (1.7-9.3); Absolute Eosinophils 0.2 10^3/uL (0-0.7); Absolute Lymphocytes 0.8 10^3/uL (1.2-3.4); Absolute Monocytes 0.5 10^3/uL (0.1-0.6); Absolute Neutrophils 4.9 10^3/uL (1.4-6.5); Hematocrit 44.1 % (39.0-52.0); Hemoglobin 15.1 g/dL (13.0-18.0); Mean Corp Hgb Conc. 34.2 g/dL (33.0-37.0); Mean Corpuscular Hgb 32.7 pg (27.0-31.0); Mean Corpuscular Volume 95.5 fL (80.0-94.0); Mean Platelet Volume 9.8 fL (7.4-10.4); Nucleated Red Blood Cells % 0 % (-); Platelet Count 193 10^3/uL (130-400); Red Blood Cell Count 4.62 10^6/uL (4.70-6.10); Red Cell Dist. Width 13.7 % (11.5-14.5); White Blood Cell Count 6.4 10^3/uL (4.8-10.8)
[2024-03-07 09:41] LABS: ALT (SGPT) 21 U/L (0-50); AST (SGOT) 44 U/L (17-59); Albumin 3.1 g/dl (3.5-5.0); Alkaline Phosphatase 82 U/L (38-126); Blood Urea Nitrogen 15 mg/dl (9-20); Calcium 8.5 mg/dl (8.4-10.2); Carbon Dioxide 20 mmol/L (22-30); Chloride 102 mmol/L (98-107); Estimated Creatinine Clearance 60 ml/min; Glucose 90 mg/dl (70-99); HDL Cholesterol 27 mg/dl; LDL Cholesterol, Calculated 48 mg/dl; Magnesium 1.9 mg/dl (1.6-2.3); Potassium 3.6 mmol/L (3.5-5.1); Sodium 134 mmol/L (135-145); Total Bilirubin 0.9 mg/dl (0.2-1.3); Total Cholesterol 91 mg/dl (50-199); Total Protein 5.7 g/dl (6.3-8.2); Triglyceride 83 mg/dl (10-149); Very Low Density Lipoprotein 16 mg/dl (0-30); eGFR > 60.00
[2024-03-07] MEDS: PROTONIX 40 MG PO (09:51)
[2024-03-07] MEDS: VITAMIN D3 (cholecalciferol) 50 MCG PO (09:52)
[2024-03-07] MEDS: CRESTOR 20 MG PO (09:52)
[2024-03-07] MEDS: TOPROL XL 25 MG PO ×2 (09:52→21:17)
[2024-03-07] MEDS: LASIX 40 MG IV (09:52)
[2024-03-07] MEDS: CYMBALTA DELAYED RELEASE 30 MG PO (09:52)
[2024-03-07] MEDS: LOW STRENGTH ASPIRIN 81 MG PO (09:52)
[2024-03-07] MEDS: FLUSH (NSS) 1 FLUSH IV (09:53)
[2024-03-07 09:58] LABS: TSH 4.24 uIU/ml (0.47-4.68)
[2024-03-07 10:18] LABS: Vitamin B12 233 pg/ml (239-931)
--- NOTE | 2024-03-07 10:32 | W.PN.HOSP.TC ---
Today's Communication/Plan
-
Continue IV diuresis, I's and O's
Assessment / Plan
Assessment / Plan
Physical Exam
General: Not in acute distress
HEENT: Normocephalic
Respiratory: Coarse breath sounds bilaterally
Cardiac: S1/S2 and Regular Rhythm
GI: Soft, Non Tender, Non Distended, Normal Bowel Sounds
Musculoskeletal: No Cyanosis, No Edema and Other (left bka wears prosthetic leg )
Skin: Warm, Dry and Other (abrasions to left shoulder left forearm)
Neuro: AAO x 3, Nonfocal/grossly intact
Psych: Calm

Assessment/Plan
#Acute chronic Diastolic CHF/ Cardiomyopathy EF 25-30%
- Continue I/o, daily weights
- cont Iv lasix 40 mg daily
- consult CBC cards, evaluation and recommendations appreciated
- cont jardiance 10 mg hs with hold parameteres
Cath 02/10/24: 1. Mildly elevated left heart filling pressures with moderate pulmonary hypertension
2. Mild aortic stenosis with mean gradient 7 mmHg. The calculated cardiac output was 4.0.
3. Stable mild CAD as described
4. Anterolateral hypokinesis with EF 37%
#Chest Pains in the Setting of CAD
-Consulted cardiology for a possible cath
-Trend troponins: unremarkable trend so far
#Mod right sided /left sided pleural effusions
96% RA
- consulted Ir for thoracentesis with cytology and fluid analysis
- Status post thoracentesis 1.3 L on March 06, 2024
- based on protein criteria appears to be transudative
- check serum LDH
#Non ischemic myocardial injury
no current cp had 5 days ago with walking [place]
- trop 0.113 will trend was 0.130 in 2019
- consult CBC cards
# Trip fall left shoulder /left forearm abrasion 5 days old
-wound care
COPD mild - no Acute exac
former smoker 2.5 ppd x 40 years stopped 2012
- does not use inhaler
saw pulm over 1 year ago
#Parox Afib
#pvi 2018
cont asa 81 mg , hold BB
#Chronic LBBB
#Non sustained VT 06/2021
# Hypotension/HTN- benign
#Hypercholesterolemia
-checked lipid profile
- cont crestor
#CAD/ [place]/Stents 2015
#cardiac arrest x2 2015
Continue Aspirin 81 mg daily
Continue Metoprolol 25mg bid
#Diverticulitis/bowel resection
#PAD s/p Femoral bypass right leg, Left leg stent and angioplasty
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
-cont gabapentin phantom leg pain, morphine 15mg bid prn mod pain , oxycodone 5mg q4prn severe pain
#Insomnia
cont lunesta or equivalent
#Chronic cachexia with wt loss over 1 year -bmi 17.7
- pt started megace 1.5 months ago no weight gain yet
is drinking carnation instant breakfast and protein 35 gm
- consult dietary
#Depression
cont cymbalta
#erectile dysfunction
hold sildenafil
dvt proph
sq lovenox
Full code
Anticipated Discharge: 24 - 48 hours
Subjective/Interval History
-
Date of Service: March 07, 2024
Patient was seen and examined. He denied any chest pain, shortness of breath or any other symptoms or complaints.
Objective Data
-
Labs:
Laboratory Results
03/07/24
07:56
WBC 6.4
Hgb 15.1
Hct 44.1
Plt Count 193
Sodium 134 L
Potassium 3.6
Chloride 102
Carbon Dioxide 20 L
BUN 15
Creatinine 0.7
Glucose 90
Calcium 8.5
Total Bilirubin 0.9
AST 44
ALT 21
Alkaline Phosphatase 82
Vital Signs:
Vital Signs
Temp Pulse Resp BP Pulse Ox
98.1 F 63 18 138/96 98
03/07/24 07:14 03/07/24 09:52 03/07/24 07:14 03/07/24 09:52 03/07/24 09:00
I&O
03/06/24 03/07/24 03/08/24
06:59 06:59 06:59
Intake Total 480 / 480
Output Total 1050 / 1050
Balance -570 / -570
[2024-03-07 11:28] VITALS: BP 111/71
[2024-03-07 11:41] LABS: LDH 230 U/L (120-246)
--- NOTE | 2024-03-07 12:46 | W.PN.CD ---
Addendum entered and electronically signed by Arnaldo Parker MD 03/07/24 14:45:
79 yo male with NICM EF 25-30%, chronic systolic HF admitted with acute on chronic systolic HF. Lasix non-compliance was a contributing factor. Exam with RRR, no murmurs, trace RLE, s/p R AKA. Cr stable 0.7.
He is s/p thoracentesis 03/06 for 1.3 L.
Continue lasix 40mg IV daily, and assess for PO tomorrow.
GDMT has been limited by hypotension.
Tele shows 6 beats NSVT; and also several brief runs SVT. Continue Toprol XL.
Original Note:
Today's Communication / Plan
-
Con't IV diuresis with monitoring
Monitor BP and renal function
Pulm eval pending
Impression / Plan
-
Pt. feels breathing is better. No CP, palps, Denies recurrent hematemesis
Hexqm-lc-qyxyrkf HFrEF:
-Chest CT scan and BNP and assessment c/w CHF exacerbation
-most recent echo as below
-for his moderate pleural effusion, he is s/p R 1300 ml thoracentesis
-diuresing with IV lasix weight down about 4 kg, which requires intensive monitoring, renal function stable at this point.
NICM:
-EF 25-30% on recent echo
-continue Toprol and Jardiance
-cannot add on Entresto or MRA at this time due to BP limitations
COPD:
-not wheezing, nodules on CT scan
-pulmonary consulted
PAF:
-stable in SR
-continue metoprolol- will add hold parameters
-he stopped Eliquis on his own due to nuisance bruising and bleeding. It was recommend he go back on ([id number] score is at least 5 for age, hypertension, CHF, CAD). However, he had what sounds to be significant hematemesis and that would need to
be worked up first- will defer that work-up to primary team/pulmonary .
CAD:
-recent cath as below
-on ASA, statin, BB
Abnormal troponin:
-suspect acute non-ischemic myocardial injury in setting of CHF exacerbation
-can trend
Physical Exam
Vital Signs/Labs
Vital Signs
Temp Pulse Resp BP Pulse Ox
99.6 F 71 19 111/71 96
03/07/24 11:28 03/07/24 11:28 03/07/24 11:28 03/07/24 11:28 03/07/24 11:28
03/06/24 03/07/24 03/08/24
06:59 06:59 06:59
Actual Weight 48.648 kg
03/07/24 07:56
03/07/24 07:56
Magnesium 1.9 mg/dl (1.6-2.3) 03/07/24 07:56
Triglycerides 83 mg/dl (10-149) 03/07/24 07:56
LDL Cholesterol, Calc 48 mg/dl 03/07/24 07:56
VLDL Cholesterol, Calc 16 mg/dl (0-30) 03/07/24 07:56
HDL Cholesterol 27 mg/dl 03/07/24 07:56
TSH 4.24 uIU/ml (0.47-4.68) 03/07/24 07:56
03/06/24
10:54
Czk-D-Wbioubbunsw Pept 9320
LAB Results
03/06/24 03/06/24 03/07/24
10:54 17:27 00:24
Troponin I 0.113 H* 0.100 H* 0.112 H*
Physical Exam
Constitutional: No acute distress
Cardiovascular: Rhythm & rate is regular and Pedal edema is absent
Respiratory: Respiratory effort normal and Crackles Absent (few rales bases )
GI: Soft, Non tender and Normal bowel sounds
Neuro/Psych: AO x 3
Data Reviewed
-
Date of Service: March 07, 2024
EKG: Tracing Personally Visualized and interpreted (NSR LBBB 68 bpm ) and Other (NSR 70 bpm )
Labs: Labs Reviewed by me
[2024-03-07 12:59] VITALS: BMI 16.3
--- NOTE | 2024-03-07 13:54 | CON.PUL ---
Consultation
Consultation Request
Date/Time Consultation Requested: 03/07/2024
Date/Time Consultation Performed: 03/07/2024
Requesting Provider: Dr. Menendez
Performing Provider: Dr. Kael Coughlin
Reason for Consultation: Acute respiratory failure/shortness of breath
Medical History
-
History of Present Illness:
79-year-old man who presents to the emergency room complaining of shortness of breath, fatigue and hemoptysis. He was traveling to [place] the past week and had a fall hurting his left side while at [facility], he suffered abrasions to the
left shoulder and left forearm.
Reports exertional chest pressure and shortness of breath. Chest x-ray was consistent with bilateral pleural effusions.
Patient reports about 70 pound weight loss in the past month and a half has been taking Megace. Denies any fevers, chills or signs of infection.
Past Medical History
Past Medical History: Other (See assessment and plan section)
Social History
Tobacco: Former Smoker (Quit 2013 80+ pack year history)
Alcohol: Daily (1 ounce of bourbon)
Drug: None
Personal: Single
Living: Alone
Employment: Retired
Family History
Family History: Reviewed & Not Pertinent
Allergies / Home Medications
Allergies
Allergy/AdvReac Type Severity Reaction Status Date / Time
clopidogrel [From Plavix] Allergy Rash Verified 03/06/24 09:40
niacin Allergy Rash Verified 03/06/24 09:40
Home Medications
�Medication �Instructions �Recorded �Confirmed �Last Taken �Type
tamsulosin 0.4 mg capsule 0.4 mg PO DAILY Urinary issue 05/03/20 03/06/24 03/06/24 History
pantoprazole 40 mg tablet,delayed 40 mg PO DAILY Gastrointestinal 08/30/20 03/06/24 03/06/24 History
release issue
aspirin 81 mg chewable tablet 81 mg PO DAILY Blood clot 01/19/21 03/06/24 03/06/24 History
prevention/tx
rosuvastatin 20 mg tablet 20 mg PO DAILY High cholesterol 01/19/21 03/06/24 03/06/24 History
docusate sodium 100 mg capsule 100 mg PO HSPRN PRN constipation 04/27/21 03/06/24 6 Days Ago History
(Colace) ~02/29/24
empagliflozin 10 mg tablet 10 mg PO HS 02/10/24 03/06/24 03/05/24 History
(Jardiance)
eszopiclone 3 mg tablet 3 mg PO HS 02/10/24 03/06/24 03/05/24 History
furosemide 40 mg tablet 40 mg PO DAILY 02/10/24 03/06/24 03/06/24 History
megestrol 20 mg tablet 20 mg PO BID 02/10/24 03/06/24 03/06/24 History
morphine 15 mg tablet,extended 15 mg PO BIDPRN PRN severe pain 02/10/24 03/06/24 5 Days Ago History
release ~03/01/24
cholecalciferol (vitamin D3) 50 50 mcg PO DAILY 03/06/24 03/06/24 03/06/24 History
mcg (2,000 unit) tablet (Vitamin
D3)
duloxetine 30 mg capsule,delayed 30 mg PO DAILY 03/06/24 03/06/24 03/06/24 History
release
gabapentin 800 mg tablet 800 mg PO DAILYPRN PRN phantom pain 03/06/24 03/06/24 2 Days Ago History
~03/04/24
metoprolol succinate 25 mg 25 mg PO BID 03/06/24 03/06/24 03/06/24 History
tablet,extended release 24 hr
oxycodone 5 mg tablet 5 mg PO Q4HPRN PRN severe pain 03/06/24 03/06/24 Unknown History
sildenafil 25 mg tablet 25 mg PO DAILYPRN PRN ed 03/06/24 03/06/24 1 Week Ago History
~02/28/24
Review of Systems
-
History Source: Patient
All other systems: Negative unless noted
Vitals / Labs / Diagnostic Testing
Vital Signs
Temp Pulse Resp BP Pulse Ox
99.6 F 71 19 111/71 96
03/07/24 11:28 03/07/24 11:28 03/07/24 11:28 03/07/24 11:28 03/07/24 11:28
Lab Data
03/07/24 07:56
03/07/24 07:56
Microbiology
03/06/24 15:47 Pleural Fluid Body Fluid Culture - Preliminary
No Growth After 18-24 Hours
03/06/24 15:47 Pleural Fluid Gram Stain - Preliminary
03/06/24 15:48 Pleural Fluid Fungal Culture - Preliminary
Culture in progress.
Positive cultures are reported as soon as detected.
Final report to follow in four to five weeks.
Diagnostic Testing:
Physical Exam
-
HEENT: Normocephalic
Cardiovascular: S1/S2
Respiratory: Clear and Non-Labored Respirations
GI: Soft and Non Distended
Neurology: Awake
Skin: Warm
Assessment
-
Abnormal CT chest
Acute respiratory insufficiency due to acute on chronic heart failure combined diastolic/systolic.
Bilateral pleural effusions right greater than left
CT chest 03/06/2024: Reviewed, show no evidence for pulmonary embolism. Finding consistent with congestive heart failure moderate right-sided and small left-sided pleural effusion. Multiple irregular airspace opacity/nodule within the right upper
lobe and also within the right middle lobe. No mediastinal lymph nodes. Compression deformities of T4 and T12.
Conditions present prior admission:
Heart failure with reduced ejection fraction 25-30%
Cath 02/10/24: 1. Mildly elevated left heart filling pressures with moderate pulmonary hypertension
2. Mild aortic stenosis with mean gradient 7 mmHg. The calculated cardiac output was 4.0.
3. Stable mild CAD as described
4. Anterolateral hypokinesis with EF 37%
Paroxysmal atrial fibrillation status post ablation
Mild COPD-not on inhalers.
Chronic left bundle branch
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
Prior cardiac arrest
Coronary stents in 2016
Peripheral arterial disease status post left leg stent
Left below the knee amputation
Former smoker
Prior diverticulitis with history of bowel resection
Cachexia
Former smoker 2.5 cigarettes/day for 40 years stopped in 2012.
Assessment and plan:
Clinical picture consistent with heart failure acute on chronic-agree with diuretics/cardiac management.
Status post Thoracentesis. 03/06/2024.
pH 7.46/white blood cells 354/80% mononuclears/fluid glucose 96/total protein 2.6/LDH 107/amylase 34/triglycerides under 30.
Cytology pending
Cultures negative so far, does not appear infectious.
Suspect due to heart failure.
-
With abnormal CT scan right upper lobe not well-defined lung nodules malignancy could be a possibility.
Prior imaging from 2021 reviewed. Patient has multiple bilateral pulmonary nodules. Specifically in the right upper lobe had some tiny abnormalities.
Last follow-up with Dr. Ayala was in February 2022. Did not follow through with ongoing low-dose cancer screening.
He was advised to follow-up with a repeat CAT scan in the short-term at that time. He did not follow through.
-
Wait for cytology.
-
I suggest short-term CT chest in the next 6 to 8 weeks after proper diuresis.
If there is persistent lung nodules then a PET/CT will be necessary
Patient is high risk for lung cancer given his smoking history plan
-
History of mild COPD, not on inhalers.
He has mild to moderate airflow obstruction on spirometry from several years ago. Will need to obtain pulmonary function testing at some point.
Currently not bronchospastic.
-
Recommend outpatient pulmonary follow-up in the next 3-[address] Ayala. Information will be left in the chart patient is agreeable to follow-up.
[2024-03-07 15:35] VITALS: BP 97/61
[2024-03-07] MEDS: LOVENOX 40 MG SC (17:03)
[2024-03-07 19:52] VITALS: BP 121/78
[2024-03-07] MEDS: JARDIANCE 10 MG PO (21:18)
[2024-03-07 23:45] VITALS: BP 113/65
[2024-03-08 03:29] VITALS: BP 114/63
[2024-03-08] MEDS: ROXICODONE 5 MG PO ×2 (05:04→13:22)
[2024-03-08 06:00] VITALS: BMI 15.7
[2024-03-08 07:15] VITALS: BP 106/61
[2024-03-08 08:15] LABS: % Basophils 0.8 % (0-2); % Eosinophils 1.9 % (0-6); % Immature Granulocytes 0.8 % (0-0.5); % Lymphocytes 9.7 % (20.5-51.1); % Monocytes 8.9 % (1.7-9.3); % Neutrophils 77.9 % (42.2-75.2); Absolute Basophils 0.1 10^3/uL (0-0.2); Absolute Eosinophils 0.1 10^3/uL (0-0.7); Absolute Immature Granulocytes 0.1 10^3/uL (0-0.05); Absolute Lymphocytes 0.6 10^3/uL (1.2-3.4); Absolute Monocytes 0.6 10^3/uL (0.1-0.6); Absolute Neutrophils 4.9 10^3/uL (1.4-6.5); Hematocrit 45.1 % (39.0-52.0); Hemoglobin 15.4 g/dL (13.0-18.0); Mean Corp Hgb Conc. 34.1 g/dL (33.0-37.0); Mean Corpuscular Hgb 31.6 pg (27.0-31.0); Mean Corpuscular Volume 92.6 fL (80.0-94.0); Mean Platelet Volume 9.2 fL (7.4-10.4); Nucleated Red Blood Cells % 0 % (-); Platelet Count 213 10^3/uL (130-400); Red Blood Cell Count 4.87 10^6/uL (4.70-6.10); Red Cell Dist. Width 13.5 % (11.5-14.5); White Blood Cell Count 6.3 10^3/uL (4.8-10.8)
[2024-03-08] MEDS: TOPROL XL 25 MG PO (08:25)
[2024-03-08] MEDS: VITAMIN D3 (cholecalciferol) 50 MCG PO (08:25)
[2024-03-08] MEDS: CYMBALTA DELAYED RELEASE 30 MG PO (08:25)
[2024-03-08] MEDS: CRESTOR 20 MG PO (08:25)
[2024-03-08] MEDS: PROTONIX 40 MG PO (08:25)
[2024-03-08] MEDS: LASIX 40 MG IV (08:26)
[2024-03-08] MEDS: LOW STRENGTH ASPIRIN 81 MG PO (08:26)
[2024-03-08 08:38] LABS: ALT (SGPT) 25 U/L (0-50); AST (SGOT) 41 U/L (17-59); Alkaline Phosphatase 83 U/L (38-126); Blood Urea Nitrogen 14 mg/dl (9-20); Calcium 8.7 mg/dl (8.4-10.2); Carbon Dioxide 24 mmol/L (22-30); Chloride 103 mmol/L (98-107); Estimated Creatinine Clearance 58 ml/min; Glucose 117 mg/dl (70-99); Potassium 3.5 mmol/L (3.5-5.1); Sodium 135 mmol/L (135-145); Total Bilirubin 0.8 mg/dl (0.2-1.3); Total Protein 5.7 g/dl (6.3-8.2); eGFR > 60.00
--- NOTE | 2024-03-08 08:51 | CM ---
met with patient and daughter at bedside.patient lives alone in house with ramp in garage to first level.he amb with a cane and power wc.his bed and bath is on the second level.he is i with ambulation and i with his adl's.he has had a vn through
[facility] in past but has not been to ip rehab.his pcp is dr gregory price and [facility]
past medical hx: copd,afib,cad sp mi/stent,cardiac arrest,diverticulitis/bowel resection
patient is adm with chf/bl pleural effusions,on iv laasix,had thorcentesis with 1.3 ml fluid.cards following.he is sating 96%v on ra.patient has declined a vn.plan is to dc home with no needs.
[2024-03-08 11:04] VITALS: BP 100/69
--- NOTE | 2024-03-08 11:56 | W.PN.HOSP.TC ---
Addendum entered and electronically signed by Josh Menendez MD 03/12/24 13:24:
Severe Protein Calorie Malnutrition of Chronic Illness
Original Note:
Today's Communication/Plan
-
Discharge today
Assessment / Plan
Assessment / Plan
Physical Exam
General: Not in acute distress
HEENT: Normocephalic
Respiratory: Coarse breath sounds bilaterally. ON ROOM AIR.
Cardiac: S1/S2 and Regular Rhythm
GI: Soft, Non Tender, Non Distended, Normal Bowel Sounds
Musculoskeletal: No Cyanosis, No Edema and Other (left bka wears prosthetic leg )
Skin: Warm, Dry and Other (abrasions to left shoulder left forearm)
Neuro: AAO x 3, Nonfocal/grossly intact
Psych: Calm

CT Chest Results (as per radiologist's report)
IMPRESSION:
1. No evidence for pulmonary embolism. Evaluation of the thoracic aorta and proximal arteries is limited secondary to poor contrast opacification of these vessels.
2. Findings suggestive of congestive heart failure with moderate right-sided and small left-sided pleural effusions. Subtotal atelectasis of the right lower lobe.
3. Multiple irregular airspace opacities/nodules within the right upper lobe and also within the right middle lobe. No left-sided nodules appreciated. Findings may be inflammatory or infectious in nature, however metastatic disease cannot be
excluded. No mediastinal or hilar lymphadenopathy.
4. Chronic compression deformities of T4 and T12 vertebral bodies.
5. Additional findings above.
Assessment/Plan
#Acute respiratory insufficiency due to acute on chronic systolic heart failure and pleural effusions
#Acute Exacerbation of heart failure with reduced ejection fraction 25-30%, suspected from non-compliance with Lasix
- Continue I/o, daily weights
- cont Iv lasix 40 mg daily
- consult CBC cards, evaluation and recommendations appreciated
- cont jardiance 10 mg hs
- cannot add on Entresto or MRA at this time due to BP limitations
#Bilateral pleural effusions right greater than left
- Status post thoracentesis 1.3 L on March 06, 2024
- based on Lights criteria appears to be transudative, suspected from CHF
- Follow cytology outpatient
#Pulmonary Nodules
#At high risk for lung cancer
-Will need to follow-up with Dr. Ayala/[facility] pulmonary in 3 to [address] Chest for lung cancer screening/evaluation
-Pulm also needs to assess for safety of Eliquis restart outpatient
#Chest Pains in the Setting of CAD
-Consulted cardiology for a possible cath
-Trend troponins: unremarkable trend so far
#NSVT
#SVT
-Continue Toprol XL
#Non ischemic myocardial injury
no current cp had 5 days ago with walking 1[place]
- trop 0.113 will trend was 0.130 in 2019
- consult CBC cards
# Trip fall left shoulder /left forearm abrasion 5 days old
-wound care
#Mild COPD
former smoker 2.5 ppd x 40 years stopped 2012
- does not use inhaler
#Paroxysmal Atrial Fibrillation status post ablation
#pvi 2018
cont asa 81 mg
-per cardiology patient stopped Eliquis on his own due to nuisance bruising and bleeding, it was recommend he go back on the Eliquis given elevated CHADSVASC score, however, he had what sounded to be significant hematemesis and that would need to
be worked up first- will defer that work-up to primary team/pulmonary
-hematemesis workup outpatient -- GI follow-up outpatient -- they will need to assess for safety of Eliquis restart outpatient
#History of Cardiac Arrest
#Pulmonary Hypertension
#Aortic Stenosis
#Chronic LBBB
#Non sustained VT 06/2021
# Hypotension/HTN- benign
#Hypercholesterolemia
-checked lipid profile
- cont crestor
#CAD/NH/History of Coronary Stents
#Severe coronary artery and aortic valve calcifications.
#history of cardiac arrest
Continue Aspirin 81 mg daily, Statin
Continue Metoprolol 25mg bid
#Diverticulitis/bowel resection
#Peripheral arterial disease status post left leg stent
#Left below the knee amputation
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
-cont gabapentin phantom leg pain, morphine 15mg bid prn mod pain , oxycodone 5mg q4prn severe pain
#Insomnia
cont lunesta or equivalent
#Chronic cachexia with wt loss over 1 year -bmi 17.7
- pt started megace 1.5 months ago no weight gain yet
is drinking carnation instant breakfast and protein 35 gm
- consult dietary
#Depression
cont cymbalta
#erectile dysfunction
hold sildenafil -- re-evaluate for restart outpatient
#Prior diverticulitis with history of bowel resection
#Cachexia
#Former smoker 2.5 cigarettes/day for 40 years stopped in 2012.
dvt proph
sq lovenox
Full code
More than 30 minutes spent in discharge including
Final examination of the patient
Summarizing hospital stay
Instructions for continuing care to all relevant caregivers
Preparation of discharge records, prescriptions, and referral forms
Total time spent (in minutes): 42
Anticipated Discharge: Today
Subjective/Interval History
-
Date of Service: March 08, 2024
Patient was seen and examined. He denied any chest pain, shortness of breath or any other symptoms or complaints.
Objective Data
-
Labs:
Laboratory Results
03/08/24
07:41
WBC 6.3
Hgb 15.4
Hct 45.1
Plt Count 213
Sodium 135
Potassium 3.5
Chloride 103
Carbon Dioxide 24
BUN 14
Creatinine 0.7
Glucose 117 H
Calcium 8.7
Total Bilirubin 0.8
AST 41
ALT 25
Alkaline Phosphatase 83
Vital Signs:
Vital Signs
Temp Pulse Resp BP Pulse Ox
97.9 F 68 12 100/69 97
03/08/24 11:04 03/08/24 11:04 03/08/24 11:04 03/08/24 11:04 03/08/24 11:04
I&O
03/07/24 03/08/24 03/09/24
06:59 06:59 06:59
Intake Total 480 / 480 240 / 240
Output Total 1050 / 1050 750 / 750
Balance -570 / -570 -510 / -510
--- NOTE | 2024-03-08 13:04 | W.PN.PUL3 ---
Today's Communication / Plan
-
Follow cytology in the outpatient setting
Short-term CT chest after diuresis
Outpatient pulmonary follow-up with Dr. Ayala
Discharge planning
Sign off
Assessment
-
Abnormal CT chest
Acute respiratory insufficiency due to acute on chronic heart failure combined diastolic/systolic.
Bilateral pleural effusions right greater than left
CT chest 03/06/2024: Reviewed, show no evidence for pulmonary embolism. Finding consistent with congestive heart failure moderate right-sided and small left-sided pleural effusion. Multiple irregular airspace opacity/nodule within the right upper
lobe and also within the right middle lobe. No mediastinal lymph nodes. Compression deformities of T4 and T12.
Conditions present prior admission:
Heart failure with reduced ejection fraction 25-30%
Cath 02/10/24: 1. Mildly elevated left heart filling pressures with moderate pulmonary hypertension
2. Mild aortic stenosis with mean gradient 7 mmHg. The calculated cardiac output was 4.0.
3. Stable mild CAD as described
4. Anterolateral hypokinesis with EF 37%
Paroxysmal atrial fibrillation status post ablation
Mild COPD-not on inhalers.
Chronic left bundle branch
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
Prior cardiac arrest
Coronary stents in 2015
Peripheral arterial disease status post left leg stent
Left below the knee amputation
Former smoker
Prior diverticulitis with history of bowel resection
Cachexia
Former smoker 2.5 cigarettes/day for 40 years stopped in 2012.
Assessment and plan:
Clinical picture consistent with heart failure acute on chronic-agree with diuretics/cardiac management.
Status post Thoracentesis. 03/06/2024.
pH 7.46/white blood cells 354/80% mononuclears/fluid glucose 96/total protein 2.6/LDH 107/amylase 34/triglycerides under 30.
Cytology pending
Cultures negative so far, does not appear infectious.
Suspect due to heart failure.
-
With abnormal CT scan right upper lobe not well-defined lung nodules malignancy could be a possibility.
Prior imaging from 2021 reviewed. Patient has multiple bilateral pulmonary nodules. Specifically in the right upper lobe had some tiny abnormalities.
Last follow-up with Dr. Ayala was in February 2022. Did not follow through with ongoing low-dose cancer screening.
He was advised to follow-up with a repeat CAT scan in the short-term at that time. He did not follow through.
-
Wait for cytology. Will need to be followed in the next 24 to 48 hours.
-
I recommended short-term CT chest in the next 6 to 8 weeks after proper diuresis.
If there is persistent lung nodules then a PET/CT will be necessary
Patient is high risk for lung cancer given his smoking history plan
-
History of mild COPD, not on inhalers.
He has mild to moderate airflow obstruction on spirometry from several years ago. Will need to obtain pulmonary function testing at some point.
Currently not bronchospastic.
-
Okay for discharge from my perspective.
Recommend outpatient pulmonary follow-up in the next 3-[address] Ayala. Information will be left in the chart patient is agreeable to follow-up.
Sign off
Subjective Data
-
Date of Service:
Date of Service: March 08, 2024
Chief Complaint: Pulmonary Follow Up (Abnormal CT chest)
Subjective:
No new complaints
Stable from the respiratory status overnight
Objective Data
Data Reviewed
Vital Signs / I&O / Oxygen:
Vital Signs
Temp Pulse Resp BP Pulse Ox
97.9 F 68 12 100/69 97
03/08/24 11:04 03/08/24 11:04 03/08/24 11:04 03/08/24 11:04 03/08/24 11:04
Intake and Output
03/07/24 03/08/24 03/09/24
06:59 06:59 06:59
Intake Total 480 / 480 240 / 240
Output Total 1050 / 1050 750 / 750
Balance -570 / -570 -510 / -510
SaO2 97
Nasal Cannula flow liters per 98
minute
Physical Exam
General: Comfortable and Other (Cachectic)
HEENT: Normocephalic
Cardiovascular: S1-S2
Respiratory: Clear and Non-Labored Respirations
GI: Soft and Non Distended
Neurology: Awake, Alert and AO x 3
Labs/Micro/Reports
Lab Data
03/08/24 07:41
03/08/24 07:41
Microbiology
03/06/24 15:47 Pleural Fluid Body Fluid Culture - Preliminary
No Growth After 48 Hours
03/06/24 15:47 Pleural Fluid Gram Stain - Preliminary
03/06/24 15:48 Pleural Fluid Fungal Culture - Preliminary
Culture in progress.
Positive cultures are reported as soon as detected.
Final report to follow in four to five weeks.
--- NOTE | 2024-03-08 14:15 | W.PN.CD ---
Today's Communication / Plan
-
HF improved s/p IV lasix: plan for discharge on lasix 40mg PO daily, and discussed importance of compliance
Impression / Plan
-
[id number] HFrEF:
-Chest CT scan and BNP and assessment c/w CHF exacerbation
-for his moderate pleural effusion, he is s/p R 1300 ml thoracentesis
-improved s/p IV lasix: plan for discharge on 40mg PO daily, and discussed importance of compliance
NICM:
-EF 25-30% on recent echo
-continue Toprol and Jardiance
-cannot add on Entresto or MRA at this time due to BP limitations
COPD:
-not wheezing, nodules on CT scan
-pulmonary consulted
PAF:
-stable in SR
-continue metoprolol
-he stopped Eliquis on his own due to nuisance bruising and bleeding. It was recommend he go back on ([id number] score is at least 5 for age, hypertension, CHF, CAD). However, he had what sounds to be significant hematemesis and that would need to
be worked up first- will defer that work-up to primary team/pulmonary .
CAD:
-recent cath showed non-obstructive disease
-on ASA, statin, BB
Abnormal troponin:
-suspect acute non-ischemic myocardial injury in setting of CHF exacerbation
-can trend
Physical Exam
Vital Signs/Labs
Vital Signs
Temp Pulse Resp BP Pulse Ox
97.9 F 68 12 100/69 97
03/08/24 11:04 03/08/24 11:04 03/08/24 11:04 03/08/24 11:04 03/08/24 11:04
03/07/24 03/08/24 03/09/24
06:59 06:59 06:59
Actual Weight 48.648 kg 46.833 kg
03/08/24 07:41
03/08/24 07:41
Magnesium 1.9 mg/dl (1.6-2.3) 03/07/24 07:56
Triglycerides 83 mg/dl (10-149) 03/07/24 07:56
LDL Cholesterol, Calc 48 mg/dl 03/07/24 07:56
VLDL Cholesterol, Calc 16 mg/dl (0-30) 03/07/24 07:56
HDL Cholesterol 27 mg/dl 03/07/24 07:56
TSH 4.24 uIU/ml (0.47-4.68) 03/07/24 07:56
03/06/24
10:54
Uoe-A-Dtalrsqmoox Pept 9320
LAB Results
03/06/24 03/06/24 03/07/24
10:54 17:27 00:24
Troponin I 0.113 H* 0.100 H* 0.112 H*
Physical Exam
Constitutional: No acute distress and Comfortable
EENT: Moist mucous membranes
Cardiovascular: Rhythm & rate is regular, Pedal edema is absent, JVD pressure is normal and Systolic murmur absent
Respiratory: Respiratory effort normal and Lungs clear to auscul.
GI: Soft and Distention absent
Neuro/Psych: AO x 3
Data Reviewed
-
Date of Service: March 08, 2024
EKG: Other (Tele: SR, LBBB, PAC's, brief SVT)
Labs: Labs Reviewed by me
--- NOTE | 2024-03-08 14:47 | W.DS.TRANS ---
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
-
Discharge Instructions:
Sleep Apnea Risk Low
Discharge Diagnosis/Procedures #Acute respiratory insufficiency due to acute on
chronic systolic heart failure and pleural
effusions
#Acute Exacerbation of heart failure with
reduced ejection fraction 25-30%, suspected from
non-compliance with Lasix
#Bilateral pleural effusions right greater than
left
#Pulmonary Nodules
#At high risk for lung cancer
#Chest Pains in the Setting of Coronary Artery
Disease
#Non-Sustained Ventricular Tachycardia
#Supraventricular Tachycardia
#Non ischemic myocardial injury
#Trip fall left shoulder /left forearm abrasion
#Mild Chronic Obstructive Pulmonary Disease
#Paroxysmal Atrial Fibrillation status post
ablation
#History of Cardiac Arrest
#CAD/[place]/History of Coronary Stents
#Severe coronary artery and aortic valve
calcifications
#Pulmonary Hypertension
#Aortic Stenosis
#Chronic LBBB
#Non sustained VT 06/2021
#Hypotension/Hypertension
#Hypercholesterolemia
#Diverticulitis/bowel resection
#Peripheral arterial disease status post left
leg stent
#Left below the knee amputation
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
#Insomnia
#Chronic cachexia
#Depression
#Erectile dysfunction
#Prior diverticulitis with history of bowel
resection
#Cachexia
#Former smoker 2.5 cigarettes/day for 40 years
stopped in 2012.
CT Chest Results (as per radiologist's report)

IMPRESSION:
1. No evidence for pulmonary embolism.
Evaluation of the thoracic aorta and proximal
arteries is limited secondary to poor contrast
opacification of these vessels.
2. Findings suggestive of congestive heart
failure with moderate right-sided and small left
-sided pleural effusions. Subtotal atelectasis
of the right lower lobe.
3. Multiple irregular airspace opacities/
nodules within the right upper lobe and also
within the right middle lobe. No left-sided
nodules appreciated. Findings may be
inflammatory or infectious in nature, however
metastatic disease cannot be excluded. No
mediastinal or hilar lymphadenopathy.
4. Chronic compression deformities of T4 and
T12 vertebral bodies.
5. Additional findings above.
Diet Restrict fluids to 48 oz,Low Fat,Low Cholesterol
,Low Sodium,No added salt
Activity As tolerated
Specialty Instructions Weigh Daily
Instructions:
Stand-Alone Forms:
Changes to Home Medications: Yes
Discharge Medications:
DC Medications w/original date entered in [facility]
tamsulosin 0.4 mg capsule 0.4 mg PO DAILY Urinary issue 05/03/20
pantoprazole 40 mg tablet,delayed release 40 mg PO DAILY Gastrointestinal issue 08/30/20
aspirin 81 mg chewable tablet 81 mg PO DAILY Blood clot prevention/tx 01/19/21
rosuvastatin 20 mg tablet 20 mg PO DAILY High cholesterol 01/19/21
docusate sodium 100 mg capsule (Colace) 100 mg PO HSPRN PRN constipation 04/27/21
empagliflozin 10 mg tablet (Jardiance) 10 mg PO HS 02/10/24
eszopiclone 3 mg tablet 3 mg PO HS 02/10/24
furosemide 40 mg tablet 40 mg PO DAILY 02/10/24
megestrol 20 mg tablet 20 mg PO BID 02/10/24
cholecalciferol (vitamin D3) 50 mcg (2,000 unit) tablet (Vitamin D3) 50 mcg PO DAILY 03/06/24
duloxetine 30 mg capsule,delayed release 30 mg PO DAILY 03/06/24
gabapentin 800 mg tablet 800 mg PO DAILYPRN PRN phantom pain 03/06/24
metoprolol succinate 25 mg tablet,extended release 24 hr 25 mg PO BID 03/06/24
oxycodone 5 mg tablet 5 mg PO Q4HPRN PRN severe pain 03/06/24
sildenafil 25 mg tablet 25 mg PO DAILYPRN PRN ed 03/06/24
Home Medication Changes
Tamsulosin held -- need to check with your primary care physician if and when you should resume this medication give your low blood pressures when you came to the hospital.
Sildenafil also held -- need to check with your primary care physician if and when you should resume this medication give your low blood pressures when you came to the hospital.
Morphine stopped as it looks like this has not been filled in a long time.
Pending Results: Yes
Additional Pending Results:
Pleural Fluid cytology and microbiology results from hospitalization
Total time spent discharging patient (in min): 42
--- NOTE | 2024-03-08 14:49 | W.DCSUMMARY ---
Discharge Summary
Discharge Data
Date of Admission: 03/06/24
Date of Discharge: 03/08/24
Total time spent discharging patient (in min): 42
-
Pending Results: Yes
Additional Pending Results:
Pleural Fluid cytology and microbiology results from hospitalization
Hospital Course
79 y/o male with past medical history of Chronic Diastolic Heart Failure, Cardiomyopathy reduced EF 25-30%, a-fib with hx ablation,, copd mild, chf, cardiac arrest, cad/ stents 2015, PAD s/p left leg stent, left BKA, former smoker, diverticulitis
with bowel resection, presented with recent intermittent chest pain, fall (with questionable syncope), shortness of breath and fatigue. He was in [place] recently and while in [facility] when he was also having chest pains. Interventional
Radiology performed a thoracentesis taking out 1.3 liters of fluid. He was also started on intravenous Lasix. Patient's symptoms improved, his diuretic was transitioned to PO, and he would need to closely follow-up with pulmonary including repeat CT
imaging with pulmonary office after discharge.
Discharge Plan
-
Patient Disposition: Home (Routine Discharge)
Discharge Diagnosis/Procedures: #Acute respiratory insufficiency due to acute on chronic systolic heart failure and pleural effusions
#Acute Exacerbation of heart failure with reduced ejection fraction 25-30%, suspected from non-compliance with Lasix
#Bilateral pleural effusions right greater than left
#Pulmonary Nodules
#At high risk for lung cancer
#Chest Pains in the Setting of Coronary Artery Disease
#Non-Sustained Ventricular Tachycardia
#Supraventricular Tachycardia
#Non ischemic myocardial injury
#Trip fall left shoulder /left forearm abrasion
#Mild Chronic Obstructive Pulmonary Disease
#Paroxysmal Atrial Fibrillation status post ablation
#History of Cardiac Arrest
#CAD/[place]/History of Coronary Stents
#Severe coronary artery and aortic valve calcifications
#Pulmonary Hypertension
#Aortic Stenosis
#Chronic LBBB
#Non sustained VT 06/2021
#Hypotension/Hypertension
#Hypercholesterolemia
#Diverticulitis/bowel resection
#Peripheral arterial disease status post left leg stent
#Left below the knee amputation
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
#Insomnia
#Chronic cachexia
#Depression
#Erectile dysfunction
#Prior diverticulitis with history of bowel resection
#Cachexia
#Former smoker 2.5 cigarettes/day for 40 years stopped in 2012.
CT Chest Results (as per radiologist's report)
IMPRESSION:
1. No evidence for pulmonary embolism. Evaluation of the thoracic aorta and proximal arteries is limited secondary to poor contrast opacification of these vessels.
2. Findings suggestive of congestive heart failure with moderate right-sided and small left-sided pleural effusions. Subtotal atelectasis of the right lower lobe.
3. Multiple irregular airspace opacities/nodules within the right upper lobe and also within the right middle lobe. No left-sided nodules appreciated. Findings may be inflammatory or infectious in nature, however metastatic disease cannot be
excluded. No mediastinal or hilar lymphadenopathy.
4. Chronic compression deformities of T4 and T12 vertebral bodies.
5. Additional findings above.
Diet: Low Fat, Low Cholesterol, Low Sodium, No added salt and Restrict fluids to 48 oz
Activity: As tolerated
Specialty Instructions: Weigh Daily- Call MD for wt gain/loss 3 lbs overnight/5 lbs in 1 week
Activity Restrictions/Additional Instructions:
You will need to take your Lasix, as prescribed, at home.
You will need to speak with your outpatient precision crop manager and other outpatient physicians if and when you can start Eliquis for Atrial Fibrillation.
You, your primary care doctor and your lung doctor will need to follow-up pleural fluid cytology and microbiology results from hospitalization
Referrals:
Andrei Ayala MD [Active] - in two to three weeks (Hospital Follow-up. Pulmonary Nodules. High risk for lung cancer. Can Eliquis be safely started for A-Fib from pulmonary perspective?)
Katharine Ge MD [Active] - in one to two weeks (Hematemesis evaluation -- per reports patient was not started on Eliquis due to hematemesis)
Abdelrahman Edwards, [Family Provider] - in less than 1 week
Additional Discharge Medication Instructions: Tamsulosin held -- need to check with your primary care physician if and when you should resume this medication give your low blood pressures when you came to the hospital.
Sildenafil also held -- need to check with your primary care physician if and when you should resume this medication give your low blood pressures when you came to the hospital.
Morphine stopped as it looks like this has not been filled in a long time.
Prescriptions:
Continued
pantoprazole 40 MG tablet,delayed release (DR/EC)
40 mg PO DAILY
aspirin 81 MG tablet,chewable
81 mg PO DAILY
rosuvastatin 20 MG tablet
20 mg PO DAILY
docusate sodium [Colace] 100 MG capsule
100 mg PO HSPRN PRN (Reason: constipation)
furosemide 40 mg Tablet
40 mg PO DAILY
megestrol 20 mg Tablet
20 mg PO BID
eszopiclone 3 mg Tablet
3 mg PO HS
Jardiance 10 mg Tablet
10 mg PO HS
metoprolol succinate 25 mg Tablet Extended Release 24 Hr
25 mg PO BID
duloxetine 30 mg Capsule,Delayed Release(Dr/Ec)
30 mg PO DAILY
cholecalciferol (vitamin D3) [Vitamin D3] 50 mcg (2,000 unit) Tablet
50 mcg PO DAILY
oxycodone 5 mg tablet
5 mg PO Q4HPRN PRN (Reason: severe pain)
gabapentin 800 mg Tablet
800 mg PO DAILYPRN PRN (Reason: phantom pain)
Patient Comments:
03/06/24: No [facility] records, [facility] has it last taken on 04/25/23. Patient may have leftover tablets from that time.
Held
tamsulosin 0.4 MG capsule
0.4 mg PO DAILY
Hold Instructions: Resume on 03/10/24. This medication was held due to low blood pressure in the hospital. Recheck your blood pressure at home and ask your primary care physician if and when you should resume this medication.
sildenafil 25 mg Tablet
25 mg PO DAILYPRN PRN (Reason: ed)
Hold Instructions: Resume on 04/22/24. Discuss this with your outpatient physicians before deciding to resume this medication.
Discontinued
morphine 15 mg tablet extended release
15 mg PO BIDPRN PRN (Reason: severe pain)
Discharge Orders:
Discharge Patient (As Directed); Ordered 03/08/24
Ordered By: Josh Menendez
Discharge Date and Time
Discharge Date/Time: 03/08/24 16:11
Print Language: PERSIAN
[2024-03-08 15:00] VITALS: BP 101/63
--- NOTE | 2024-03-08 15:34 | CM ---
met with patient who is stable for dc home with no needs.patient signed imm letter.
--- NOTE | 2024-03-09 12:31 | PN.CDI ---
CDI
- -
CDI:
Physician Documentation Request
Admit Date: 03/06/24 15:10
Dear Doctor Gemma
Please review the following and provide your response in the progress notes.
Clinical Indicators:
Rd Assessment 03/07: Patient meets the ASPEN/AND criteria for Severe Protein Calorie Malnutrition of Chronic Illness as evidenced by intakes <75% for greater than or equal to 1 month, severe loss of SQ fat over rib cage and orbitals, severe muscle
loss over clavicles and temporals.
Based on the above information and your assessment, which of the following most accurately represents the patient's nutritional status?
Severe malnutrition
Other (please specify)Unable to determine
[place] Criteria ([facility] Hospitalist 2017)
2 or more criteria must be present for either
non severe or severe malnutrition
Note that the criteria differs related to the
presence of an acute or chronic illness
Acute Illness Chronic Illness
Energy Intake Non Severe: <75% for >7 days Non Severe: <75% for >1 month
Severe: <50% for >5 days Severe: <75% for >1 month
Weight Loss Non Severe: 1-2% over 1 week Non Severe: 5% over 1 month
5% over 1 month 7.5% over 3 months
7.5% over 3 months 10% over 6 months
1 year N/A 20% over 1 year
Severe: >2% over 1 week Severe: >5% over 1 month
>5% over 1 month >7.5% over 3 months
>7.5% over 3 months >10% over 6 months
1 year N/A >20% over 1 year
Body Fat Non Severe: Mild Decrease Non Severe: Mild Loss
Severe: Moderate Decrease Severe: Severe Loss
Muscle Mass Non Severe: Mild Decrease Non Severe: Mild Loss
Severe: Moderate Decrease Severe: Severe Loss
Fluid Accumulation Non Severe: Mild Accumulation Non Severe: Mild Accumulation
Severe: Moderate to severe Severe: Moderate to severe
accumulation accumulation
Reduced Manager Laboratory Strength Non Severe: N/A Non Severe: N/A
Severe: Measurably reduced Severe: Measurably reduced
Additional criteria that can be used to Determine if Mild or Moderate Malnutrition ([employer] Manual 2018)
Mild Moderate Severe
Albumin gm/dl <3.0 gm/dl <2.5 gm/dl <2.0 gm/dl
Pre Albumin mg/dl <15 gm/dl <10 mg/dl <5.0 mg/dl
BMI <18.5 <17 <16
Use of terms such as suspected, likely, concern for, or probable (associated with a specific diagnosis that is being evaluated, monitored, or treated as if it exists) are acceptable and can be coded in the inpatient setting, when documented at the
time of discharge.
Thank you,
Uma [place]
CDI Specialist
Please use your independent medical judgment in providing your response.
== END 2024-03-08 16:11 | disposition home or self-care (01) | DRG 291 ==
LOC: 4 EAST ACU 15:10
PROVIDERS: Clinical Nurse Specialist Family Health; Physician Assistant; Radiology Vascular & Interventional Radiology; ADMITTING PHYSICIAN Hospitalist; CONSULT PHYSICIAN Internal Medicine; EMERGENCY PHYSICIAN Emergency Medicine; FAMILY PHYSICIAN Internal Medicine; OTHER PHYSICIAN Internal Medicine Critical Care Medicine
PROC: 0W993ZZ Drainage of Right Pleural Cavity, Percutaneous Approach (ICD-10-PCS; 2024-03-06)
DX: I11.0 Hypertensive heart disease with heart failure (principal); E43 Unspecified severe protein-calorie malnutrition; I50.43 Acute on chronic combined systolic (congestive) and diastolic (congestive) heart failure; J96.00 Acute respiratory failure, unspecified whether with hypoxia or hypercapnia; J98.11 Atelectasis; I47.20 Ventricular tachycardia, unspecified; I47.10 Supraventricular tachycardia, unspecified; R64 Cachexia; Z68.1 Body mass index [BMI] 19.9 or less, adult; Z87.891 Personal history of nicotine dependence; I42.8 Other cardiomyopathies; I5A Non-ischemic myocardial injury (non-traumatic); Z79.82 Long term (current) use of aspirin; I27.20 Pulmonary hypertension, unspecified; I73.9 Peripheral vascular disease, unspecified; E78.00 Pure hypercholesterolemia, unspecified; F32.A Depression, unspecified; G47.00 Insomnia, unspecified; I25.10 Atherosclerotic heart disease of native coronary artery without angina pectoris; I48.0 Paroxysmal atrial fibrillation; N52.9 Male erectile dysfunction, unspecified
CPT/HCPCS: 88305; 32555; 71045; 71275; 80053; 80061; 82150; 82607; 82945; 83615; 83735; 83880; 83986; 84157; 84443; 84478; 84484; 85025; 87015; 87070; 87102; 87116; 87205; 87206; 88112; 89051; 93005; 96374; 97162; 97166; 99285; Q9967

== ENCOUNTER → 2024-04-15 13:26 | Outpatient (REF) | payer MEDICARE, BC, SELFPAY | LOC: RAD 13:26 | PROVIDERS: ATTENDING PHYSICIAN Surgery Vascular Surgery; FAMILY PHYSICIAN Internal Medicine | DX: I73.9 Peripheral vascular disease, unspecified (principal) | CPT/HCPCS: 75635; Q9967 ==

== ENCOUNTER → 2024-05-15 11:44 | Outpatient (REF) | payer MEDICARE, BC, SELFPAY | LOC: HWRAD 11:44 | PROVIDERS: ATTENDING PHYSICIAN Internal Medicine Critical Care Medicine; FAMILY PHYSICIAN Internal Medicine | DX: J90 Pleural effusion, not elsewhere classified (principal); R91.8 Other nonspecific abnormal finding of lung field | CPT/HCPCS: 71250 ==

== ENCOUNTER 2024-05-19 13:14 | Emergency (ER) | payer MEDICARE, BC, SELFPAY ==
[2024-05-19 13:17] VITALS: BP 160/97
--- NOTE | 2024-05-19 15:02 | ED.GENMED ---
History of Present Illness
<Marily Humphrey PA-C - Last Filed: 05/19/24 15:41>
General
Chief Complaint: Head Injury
Source: patient
Exam Limitations: none
Time Seen by Provider: 05/19/24 14:14
Nursing documentation reviewed up to this point in time: agreed with
History of Present Illness
History of Present Illness:
79-year-old male with past medical history of COPD, A-fib takes Eliquis, CHF, coronary artery disease presents emergency department today with concerns of persistently bleeding wound following a fall. This fall occurred 5 days ago patient reports
that he has a right prosthetic lower extremity that does not fit very well that causes him to loose balance. He reports that he was bending over to take something out of the oven when he fell, hitting his head on the cabinets. He did not lose
consciousness. He notes that since then, he has had occasional episodes of blurry vision but denies any headaches, neck pain, dizziness, lightheadedness. Denies chest pain or shortness of breath. Denies palpitations. Denies any other injuries.
He was able to ambulate without difficulty following a fall. He does not think he has had his tetanus vaccine within the last 5 years. He is concerned about his brain because when the dressing was changed, they noted bleeding from the wound but
did not soak through the dressing.
Past History
<Marily Humphrey PA-C - Last Filed: 05/19/24 15:41>
Past History
ED Past Medical History: Arrthythmia (atrial fib), Cancer, CHF, HTN, Hypercholesterolemia, [place] and Other (Diverticulitis, PAD)
ED Past Surgical History: Bowel resection, Cardiac (Stents, Ablation, carotid artery surgery,), Orthopedic (Bilateral knee replacements, right ankle replacement and Left shoulder replacement) and Other (Femoral bypass right leg, hernia repair. Left
leg stent and angioplasty)
Social History
Tobacco: Former smoker
Alcohol: Occasional ([facility])
Drug: None
Personal:
Living: with family
Employment: Employed
Family History
Family History: Other (Noncontributory)
Review of Systems
<Marily Humphrey PA-C - Last Filed: 05/19/24 15:41>
Review of Systems
All Other Systems: ROS reviewed and negative except as documented in HPI and ROS
Phy Exam
<Marily Humphrey PA-C - Last Filed: 05/19/24 15:41>
Physical Exam
Physical Exam:
General: Patient is well appearing and in no acute distress; non-toxic
Skin: Warm and dry, there is a 4 cm skin tear on the forehead with a small partial flap and an adjacent smaller skin tear, no active bleeding.
Head: Normocephalic, atraumatic
Eyes: Sclera non-icteric. EOMs intact.
Neck: Patient seen passively ranging cervical spine with no midline tenderness
Cardiac: Regular rate
Pulm: Normal respiratory effort
Musculoskeletal: No pain with passive ROM of peripheral extremities, peripheral extremities with no signs of trauma
Neuro: CN II-XII intact, no focal neurologic deficits.
Psychiatric: Appropriate mood and affect.
Course
<Marily Humphrey PA-C - Last Filed: 05/19/24 15:41>
Orders/Labs/Results
Orders:
Orders
05/19/24 13:16
CT Head W/o Iv Contrast Urgent
Comment:
Reason For Exam: fall on Eliquis
05/19/24 14:38
Tetanus/Diphth/Acelpertussis [Adacel] 0.5 ml IM .ONCE ONE
Vital Signs
Initial and Last Documented VS:
Initial Vital Signs
Temp Pulse Resp BP Pulse Ox
97.5 F 81 20 160/97 97
05/19/24 13:17 05/19/24 13:17 05/19/24 13:17 05/19/24 13:17 05/19/24 13:17
Last Documented Vital Signs
Temp Pulse Resp BP Pulse Ox
97.5 F 68 18 100/62 100
05/19/24 13:17 05/19/24 15:34 05/19/24 15:34 05/19/24 15:34 05/19/24 15:34
<Gauri Wisdom MD - Last Filed: 05/19/24 15:05>
Orders/Labs/Results
Orders:
Orders
05/19/24 13:16
CT Head W/o Iv Contrast Urgent
Comment:
Reason For Exam: fall on Eliquis
05/19/24 14:38
Tetanus/Diphth/Acelpertussis [Adacel] 0.5 ml IM .ONCE ONE
Vital Signs
Initial and Last Documented VS:
Initial Vital Signs
Temp Pulse Resp BP Pulse Ox
97.5 F 81 20 160/97 97
05/19/24 13:17 05/19/24 13:17 05/19/24 13:17 05/19/24 13:17 05/19/24 13:17
Last Documented Vital Signs
Temp Pulse Resp BP Pulse Ox
97.5 F 68 18 100/62 100
05/19/24 13:17 05/19/24 15:34 05/19/24 15:34 05/19/24 15:34 05/19/24 15:34
<Marily Humphrey PA-C - Last Filed: 05/19/24 15:41>
MDM/Problems Addressed
Differential Diagnosis Includes:
Differentials include concussion, epidural hematoma, subdural hematoma, abrasion, laceration
MDM/Problems Addressed:
79-year-old male with past medical history of COPD, CHF, hypertension, A-fib on Eliquis presents emergency department today with concerns of a persistently bleeding abrasion. He had head trauma 5 days ago. Patient did not lose consciousness at
this time, states is a purely mechanical fall. Patient denies any palpitations, chest pain, shortness of breath. On physical exam, he does have a skin tear noted to the forehead, however is not actively bleeding. His tetanus was updated. We
obtained a CAT scan. Did apply Steri-Strips to the remaining area of skin flap as well as applying gauze soaked dressing with overlying nonadherent pads. I did discuss wound care with family. CT shows no signs of acute intracranial abnormality.
Discussed return precautions and signs of infection look out for. Patient stable for discharge
Chronic conditions affecting care:
CBC, hypertension, A-fib on Eliquis
<Marily Humphrey PA-C - Last Filed: 05/19/24 15:41>
*Pulse Oximetry
Patient hypoxic: no
*Critical Care Note
Total Time (30-74mins, 75-104mins- exclusive of procedures): Not Applicable
Data Reviewed
Review of Other/Old Records Reveals: Records (Reviewed discharge summary from 03/08/2024, patient was admitted for acute heart failure exacerbation)
Source: patient and records
Prescriptions/Medications Considered But Not Given:
n/a
Further Testing Considered But Not Given:
n/a
<Marily Humphrey PA-C - Last Filed: 05/19/24 15:41>
Patient Management
Escalation/DeEscalation of care consider admission/obs:
Admit not indicated, patient stable for discharge
ED Attending Note
<Marily Humphrey PA-C - Last Filed: 05/19/24 15:41>
-
Portions of this chart may have been created with voice recognition software.� Occasional wrong word or��sound alike� substitutions may have occurred due to the inherent limitations of voice recognition software.
<Gauri Wisdom MD - Last Filed: 05/19/24 15:05>
ED Attending Note
Patient seen and examined by attending physician: Yes
I performed the substantive portion of visit, reviewed & personally made and approve the management plan that is documented in note by myself or FRAN.: Yes
ED Attending Note:
Patient is a 79-year-old man with history of A-fib on Eliquis presenting to the emergency department with a laceration. Patient states that he had a fall about 4 to 5 days ago. He states it was a mechanical fall. He not lose consciousness. He
was able to ambulate on his own. 2 days ago he told his daughter given that he was having some bleeding from the skin tear that occurred on his head. He notes that occurred when he changed his dressing. Yesterday he noticed that it started
bleeding again on its own. It did not go through the dressing. Today his daughter brought him in for evaluation. Patient denies any numbness tingling. No headache. No weakness. He occasionally notes blurry vision. He is unsure when he last
received his tetanus. Vitals unremarkable. On exam patient is resting comfortably. He does have a circular skin tear about 4 cm to the right side of his forehead with some remaining skin and a smaller skin tear that is linear about 2 cm to the
lateral right forehead. Bleeding is controlled at this time. Neuroexam shows equal strength in upper and lower extremities. CT scan of the head obtained prior to my evaluation which is unremarkable. Will update patient's tetanus. Will washout
the wound and place Steri-Strips. Patient will be discharged after washout and repair.
Discharge Plan
Departure
Patient Disposition: Home (Routine Discharge)
Date of Disposition: 05/19/24
Time of Disposition: 15:03
Patient with high blood pressure during this ER visit?: Yes
Condition: Good
Discharge Problem:
Skin tear, Concussion
Instructions: Taking care of cuts, scrapes, and puncture wounds, Wound Care ED
Prescriptions:
No Action
tamsulosin 0.4 MG capsule
0.4 mg PO DAILY
pantoprazole 40 MG tablet,delayed release (DR/EC)
40 mg PO DAILY
aspirin 81 MG tablet,chewable
81 mg PO DAILY
rosuvastatin 20 MG tablet
20 mg PO DAILY
docusate sodium [Colace] 100 MG capsule
100 mg PO HSPRN PRN (Reason: constipation)
furosemide 40 mg Tablet
40 mg PO DAILY
megestrol 20 mg Tablet
20 mg PO BID
eszopiclone 3 mg Tablet
3 mg PO HS
Jardiance 10 mg Tablet
10 mg PO HS
sildenafil 25 mg Tablet
25 mg PO DAILYPRN PRN (Reason: ed)
metoprolol succinate 25 mg Tablet Extended Release 24 Hr
25 mg PO BID
duloxetine 30 mg Capsule,Delayed Release(Dr/Ec)
30 mg PO DAILY
cholecalciferol (vitamin D3) [Vitamin D3] 50 mcg (2,000 unit) Tablet
50 mcg PO DAILY
oxycodone 5 mg tablet
5 mg PO Q4HPRN PRN (Reason: severe pain)
gabapentin 800 mg Tablet
800 mg PO DAILYPRN PRN (Reason: phantom pain)
Patient Comments:
03/06/24: No [facility] records, [facility] has it last taken on 04/25/23. Patient may have leftover tablets from that time.
Referrals:
Abdelrahman Edwards, DO [Family Provider] -
Activity Restrictions/Additional Instructions:
Please change your dressing once daily. You can let mild soapy water run over the wound but please do not scrub the wound. You can apply antibiotic ointment followed by petroleum soaked gauze and nonadherent pads. Please do not remove
Steri-Strips. Patient starts to peel and fall off naturally as wound heals.
Signs of infection to look out for include purulent drainage from the wound, extensive surrounding redness to the wound, increasing pain, fevers, chills, nausea, vomiting, in which case you should return to the emergency department. Please
follow-up with your primary care provider.
Please follow up with your PCP and return to the ER with any concerns.
Interventions
Interventions:
*Risk Screen - Suicide Last Done: 05/19/24 13:17
*General Assessment Last Done: 05/19/24 13:17
*Neglect/Abuse Screening Last Done: 05/19/24 13:17
ED- Fall Risk Assessment Last Done: 05/19/24 14:57
*ED COVID-19 Vaccine History Last Done: 05/19/24 14:57
*Nursing Disposition Last Done: 05/19/24 15:34
ED- Neurological Assessment Last Done: 05/19/24 14:57
ED-Skin Assessment Last Done: 05/19/24 14:57
Discharge Date and Time
Print Language: CHILEAN
[2024-05-19] MEDS: ADACEL 0.5 ML IM (15:05)
[2024-05-19 15:10] VITALS: BP 100/62
--- NOTE | 2024-05-19 15:15 | EDRN ---
Reviewed discharge instructions with patient. Verbalized understanding. Taken to lobby in wheelchair.
[2024-05-19 15:34] VITALS: BP 100/62
== END 2024-05-19 14:15 | disposition home or self-care (01) ==
LOC: EMR 13:14
PROVIDERS: EMERGENCY PHYSICIAN Student in an Organized Health Care Education/Training Program; FAMILY PHYSICIAN Internal Medicine
DX: S06.0X0A Concussion without loss of consciousness, initial encounter (principal); S01.81XA Laceration without foreign body of other part of head, initial encounter; W01.198A Fall on same level from slipping, tripping and stumbling with subsequent striking against other object, initial encounter; Y93.89 Activity, other specified; Z23 Encounter for immunization; J44.9 Chronic obstructive pulmonary disease, unspecified; I48.91 Unspecified atrial fibrillation; I11.0 Hypertensive heart disease with heart failure; I50.9 Heart failure, unspecified; I25.10 Atherosclerotic heart disease of native coronary artery without angina pectoris; K57.92 Diverticulitis of intestine, part unspecified, without perforation or abscess without bleeding; E78.00 Pure hypercholesterolemia, unspecified; I25.2 Old myocardial infarction; Z79.01 Long term (current) use of anticoagulants; Z96.653 Presence of artificial knee joint, bilateral; Z95.5 Presence of coronary angioplasty implant and graft; Z96.661 Presence of right artificial ankle joint; Z96.612 Presence of left artificial shoulder joint; Z87.891 Personal history of nicotine dependence; Z98.0 Intestinal bypass and anastomosis status
CPT/HCPCS: 99284; 90471; 70450; 90715

== ENCOUNTER → 2024-06-02 13:59 | Outpatient (REF) | payer MEDICARE, BC, SELFPAY | LOC: RAD 13:59 | PROVIDERS: ATTENDING PHYSICIAN Internal Medicine Rheumatology; FAMILY PHYSICIAN Internal Medicine | DX: M80.00XS Age-related osteoporosis with current pathological fracture, unspecified site, sequela (principal); M85.89 Other specified disorders of bone density and structure, multiple sites; M81.0 Age-related osteoporosis without current pathological fracture | CPT/HCPCS: 77080; 77081 ==

== ENCOUNTER 2024-06-10 15:50 | Emergency (ER) | payer MEDICARE, BC, SELFPAY ==
[2024-06-10 15:52] VITALS: BP 137/82
--- NOTE | 2024-06-10 16:41 | ED.GENMED ---
History of Present Illness
General
Chief Complaint: Musculo-Skeletal Complaint
Time Seen by Provider: 06/10/24 16:23
History of Present Illness
History of Present Illness:
79-year-old male presents to the emergency department for evaluation of left shoulder pain after a fall last week. Still unable to raise the shoulder without severe pain. History of left shoulder hemiarthroplasty. No chest pain or back pain
Past History
Past History
ED Past Medical History: Arrthythmia (atrial fib), Cancer, CHF, HTN, Hypercholesterolemia, [place] and Other (Diverticulitis, PAD)
ED Past Surgical History: Bowel resection, Cardiac (Stents, Ablation, carotid artery surgery,), Orthopedic (Bilateral knee replacements, right ankle replacement and Left shoulder replacement) and Other (Femoral bypass right leg, hernia repair. Left
leg stent and angioplasty)
Social History
Tobacco: Former smoker
Alcohol: Occasional ([facility])
Drug: None
Personal:
Living: with family
Employment: Employed
Family History
Family History: Other (Noncontributory)
Review of Systems
Review of Systems
Allergies reviewed?: Yes
All Other Systems: ROS reviewed and negative except as documented in HPI and ROS
Phy Exam
Physical Exam
Physical Exam:
GEN: Well appearing, NAD, WDWN
HEENT: Oral mucosa moist, no scleral icterus
Cardiac: Regular rate
Lung: No respiratory distress, no tachypnea
MSK: No gross deformity or injuries. Left shoulder passive range of motion is normal and pain-free, there is mild tenderness to the AC joint with no obvious piano keying deformity.
Skin: Good color, no pallor or jaundice, no rashes
Neuro: AO x3, moves all extremities freely
Psych: Calm, cooperative
Course
Orders/Labs/Results
Orders:
Orders
06/10/24 15:57
CR Shoulder, Trauma - Left Urgent
Comment:
Reason For Exam: fall pain
Vital Signs
Initial and Last Documented VS:
Initial Vital Signs
Temp Pulse Resp BP Pulse Ox
97.7 F 76 20 137/82 99
06/10/24 15:52 06/10/24 15:52 06/10/24 15:52 06/10/24 15:52 06/10/24 15:52
Last Documented Vital Signs
Temp Pulse Resp BP Pulse Ox
97.7 F 76 20 137/82 99
06/10/24 15:52 06/10/24 15:52 06/10/24 15:52 06/10/24 15:52 06/10/24 15:52
MDM/Problems Addressed
MDM/Problems Addressed:
X-ray showed no evidence of hardware disruption or periprosthetic fracture. Discussed supportive care with the patient, may have a mild AC joint sprain
*Critical Care Note
Total Time (30-74mins, 75-104mins- exclusive of procedures): Not Applicable
ED Attending Note
-
Portions of this chart may have been created with voice recognition software.� Occasional wrong word or��sound alike� substitutions may have occurred due to the inherent limitations of voice recognition software.
Discharge Plan
Departure
Patient Disposition: Home (Routine Discharge)
Date of Disposition: 06/10/24
Time of Disposition: 16:41
Patient with high blood pressure during this ER visit?: No
Discharge Problem:
Sprain of left acromioclavicular joint
Instructions: Shoulder Sprain
Prescriptions:
No Action
tamsulosin 0.4 MG capsule
0.4 mg PO DAILY
pantoprazole 40 MG tablet,delayed release (DR/EC)
40 mg PO DAILY
aspirin 81 MG tablet,chewable
81 mg PO DAILY
rosuvastatin 20 MG tablet
20 mg PO DAILY
docusate sodium [Colace] 100 MG capsule
100 mg PO HSPRN PRN (Reason: constipation)
furosemide 40 mg Tablet
40 mg PO DAILY
megestrol 20 mg Tablet
20 mg PO BID
eszopiclone 3 mg Tablet
3 mg PO HS
Jardiance 10 mg Tablet
10 mg PO HS
sildenafil 25 mg Tablet
25 mg PO DAILYPRN PRN (Reason: ed)
metoprolol succinate 25 mg Tablet Extended Release 24 Hr
25 mg PO BID
duloxetine 30 mg Capsule,Delayed Release(Dr/Ec)
30 mg PO DAILY
cholecalciferol (vitamin D3) [Vitamin D3] 50 mcg (2,000 unit) Tablet
50 mcg PO DAILY
oxycodone 5 mg tablet
5 mg PO Q4HPRN PRN (Reason: severe pain)
gabapentin 800 mg Tablet
800 mg PO DAILYPRN PRN (Reason: phantom pain)
Patient Comments:
03/06/24: No [facility] records, [facility] has it last taken on 04/25/23. Patient may have leftover tablets from that time.
Referrals:
Moisés Luis MD [Active] -
Interventions
Interventions:
*Risk Screen - Suicide Last Done: 06/10/24 15:52
*General Assessment Last Done: 06/10/24 15:52
*Neglect/Abuse Screening Last Done: 06/10/24 15:52
ED- Fall Risk Assessment Last Done: 06/10/24 16:57
*Nursing Disposition Last Done: 06/10/24 16:57
ED-Musculoskeletal Assessment Last Done: 06/10/24 16:58
Discharge Date and Time
Discharge Date/Time: 06/10/24 16:58
Print Language: JAPANESE
== END 2024-06-10 16:58 | disposition home or self-care (01) ==
LOC: EMR 15:50
PROVIDERS: EMERGENCY PHYSICIAN Emergency Medicine
DX: S43.52XA Sprain of left acromioclavicular joint, initial encounter (principal); W19.XXXA Unspecified fall, initial encounter; E78.00 Pure hypercholesterolemia, unspecified; I11.0 Hypertensive heart disease with heart failure; I50.9 Heart failure, unspecified; Z87.891 Personal history of nicotine dependence; Z95.5 Presence of coronary angioplasty implant and graft; Z96.612 Presence of left artificial shoulder joint
CPT/HCPCS: 99283; 73030

== ENCOUNTER → 2024-07-03 12:59 | Outpatient (REF) | payer MEDICARE, BC, SELFPAY | LOC: HWRCS 12:59 | PROVIDERS: ATTENDING PHYSICIAN Internal Medicine Cardiovascular Disease; FAMILY PHYSICIAN Internal Medicine | DX: I50.20 Unspecified systolic (congestive) heart failure (principal) | CPT/HCPCS: 93306 ==

== ENCOUNTER 2024-08-06 06:45 | Day surgery (SDC) | payer MEDICARE, BC, SELFPAY ==
[2024-08-06] VITALS (8 sets, daily range): BP systolic 84–131; BP diastolic 50–84; BMI 15.7
--- NOTE | 2024-08-06 10:34 | ITS.CL.ICD ---
Reimbursement Consultant - ICD
Implantable Cardioverter Defibrillator
Procedure Report:
BiV ICD
JAVA TECH LEAD-D with Implantable Cardiac Defibrillator (BiV-ICD) Placement with conduction system pacing lead placement and attempted coronary sinus lead placement:
Mr. Davis is a 79 years old gentleman with non-ischemic cardiomyopathy with amyloid cardiomyopathy with class III NYHA symptoms with LVEF of 25% and has LBBB, with persistent low LVEF despite on guideline directed optimal medical treatment for over a
year. He is in need for a BiV pacing and is here in EP lab for cardiac resynchronization therapy with defibrillator (JAVA TECH LEAD-D). Given his low EF, he is at risk of sudden cardiac and an ICD is recommended.
His prognosis was clarified with his oncologist and his malignancy is in remission, with more than 1 year life expectation.
Indications: Irreversible and symptomatic NYHA Class III chronic systolic congestive heart failure with depressed LV ejection fraction of 25% despite on maximal guideline directed medical therapy, Wide QRS with LBBB.
Date of the Procedure: 08/06/2024
Pre-Operative Diagnosis: Systolic heart failure with infiltrative cardiomyopathy
Post-Operative Diagnosis: Systolic heart failure with infiltrative cardiomyopathy
Procedure Performed: JAVA TECH LEAD-D with BIVENTRICULAR IMPLANTABLE DEFIBRILLATOR IMPLANTATION with CONDUCTION PACING LEAD AND ATTEMPTED CORONARY SINUS LEAD
Performing Physician:
Julio Cesar Coello MD
Anesthesia:
See anesthesia records
Detailed Description of the Procedure:
The patient was identified using hospital identification and informed consent obtained for the procedure. The risks were explained to the patient and the family including, but not limited to: Bleeding, infection, arrhythmia, stroke,
vascular/cardiac/lung puncture, surgery, pacemaker dependency/device malfunction. All questions were answered.
A surgical pause was performed in accordance with hospital regulations. Anesthesia service provided sedation as reported separately. Antibiotics administered IV for risk of bacterial colonization. After obtaining informed and written consent, the
patient was brought to the electrophysiology laboratory.
A timeout was performed immediately before the procedure. The left chest was prepped from the nipple to the angle of the jaw with chlorhexidine, and draped following sterile technique in usual routine.�
The left arm venogram was done. There were open axillary vein and the subclavian vein patency documented. Following infiltration with local anesthetic, the axillary vein was accessed under ultrasound and the venogram guidance using the
micro-puncture apparatus. The guide wires were advanced to the inferior vena cava (IVC) under flouro guidance. The other guidewire was advanced to the SVC using retained guide wire technique with the help of hemostatic peel away introducer sheaths.
A subcutaneous pocket was created with blunt dissection and use of electrocautery. Hemostasis was excellent.
The right ventricular lead was placed at the RV apex with defibrillator coil well into the RV cavity and screwed in place with appropriate sensing and threshold. The atrial lead was placed at the right atrial appendage. RA and RV leads inserted
fluoroscopically, tested and functioning appropriately with upright current of injury (lead information below). The leads were secured to the deep fascia with 2-0 Ethibond sutures placed on the anchoring sleeves.
Attention then was turned to the coronary sinus. The guide wire was advanced to the IVC and a long hemostatic peel away sheath was advanced to the RA.
The CS was cannulated using radiofocus glidewire. There was an acute angle with sheath not able to go into the CS over the guidewire. Multiple attempts were made and with increased risk of CS perforation, decision was made to proceed with left
bundle branch pacing lead.
The guide wire was advanced to the RA and was crossed through the tricuspid valve into the RV. The preformed curved long hemostatic peel away HIS sheath was advanced into the RV cavity. A left bundle pacing wire was advanced into the sheath to the
tip with ventricular signals noted with unipolar manner. The HIS location was identified under guidance of the flouroscopy and the pacing wire signals. The sheath with the pacing lead was moved deeper into the RV cavity on the septum at a more
inferior and distal to the HIS signals.
Once adequate signals were noted on the electrograms of the pacing lead in the sheath with W pattern signals on the RV septum, the lead was advanced and clockwise turns were done under fluoroscopic guidance. The septum was engaged and the lead was
paced intermittently after every 2-3 turns. The Impedance of the lead was measured that came down to around 800 Ohm.
The pacing signals from the lead showed only RV septal pacing, though narrow but not left bundle pacing. This was thought to be due to the entanglement effect of the lead to the septal endocardium. The decision was made to remove the lead and
relocate to another locations.
Another septal location was identified with adequate signals noted on the pacing leads and good flouroscopic location. There was sheath approximation conformed on ROMANIAN view and the pacing lead was advanced with clockwise turns into the septal
location. The septum was successfully engaged. The lead was paced and septal pacing was noted. The sheath was placed again to the septum and the lead was advanced 2-3 turns with pacing with each advancement.
The ventricular capture was monitored throughout and the captures gradually changed from RV pacing to non-selective pacing to LBB pacing. There was conduction disease noted and the threshold was elevated and with observation was increased. Decision
was made to replace the lead to another locations.
Using the same technique, the pacing lead was placed at the more apical septal location. The septum was successfully engaged. The lead was paced and septal pacing was noted. The sheath was placed again to the septum and the lead was advanced 2-3
turns with pacing with each advancement. There was only septal pacing noted with no isolated LBB pacing and the non-selective conduction system pacing was acceptable in this patient on infiltrative cardiomyopathy with amyloid. �
The long guiding sheath was cut and removed from the RV without change in lead position, impedance, sensing, or capture. The lead was sutured to the underlying pectoralis fascia with 2-0 Ethibond stitches. �
The leads were attached to the pulse generator in standard configuration with acceptable sensing and threshold parameters.
Due to low BMI and thin skin, decision was made to create the ICD pocket below the pectoralis muscle. The pocket was irrigated with antibiotic solution; the pocket was inspected with no active bleeding noted. The device and the leads were placed in
the pocket.
ATyrx pouch was placed around the device and the leads.
Deep subcutaneous tissues were closed with 2-0 V loc sutures; intermediate subcutaneous tissue was reopposed using a running 4-0 V loc suture, and the dermis was reopposed using a running 4-0 V loc subcuticular suture. Sponge counts / sharp counts
were appropriate.
A pressure dressing was applied.
Procedure End:
The procedure was tolerated well. Aquacel bandaged was applied. A pressure dressing was applied.
Estimated Blood loss:
10 cc
Specimens Removed:
No cultures and no specimens were obtained. No intraoperative pathology was identified.
Urine output:
None
Packs / Drains/ Tubes:
None
Instrument / Sponge Count Correct:
Yes
Flouro time:
25.7min / 9.91 Gycm2 - DAP
Complications of the Procedure:
None
Condition of Patient at Time of Transfer:
Hemodynamically stable with no neurological or vascular compromise.
Device information:�
Generator: [employer]; Model:BPAQ5M1; Serial # [id number]�
����������� Atrial Lead: Medtronic; Model: 5076-52; Serial # [id number]
����������������������� Measured data in the right atrium was sensing of 2.0 mV and, impedance of 741 Ohms and threshold of 0.5 V at 0.4ms�
����������� RV Lead: Medtronic; Model: 6935M-62; Serial # [id number]
����������������������� Measured data on the RV lead was sensing of 7.6 mV, impedance of 380 ohms and threshold of 0.5 V at 0.4ms�
����������� LV pacing lead: Medtronic; Model: 3830-69; Serial # [id number]
����������������������� Measured data on the LV lead was impedance of 665 ohms and threshold of 0.5 V at 0.4ms
PROGRAMMING PARAMETERS:�
Gio parameter settings were DDDR 50-130 �
����������� Paced AV interval: 130ms
����������� Sensed AV interval: 100 ms.
����������� Rate Adaptive A-V Interval: on
Tachy parameter settings:
����������� SVT discrimination: On
����������� AF/AFl: On
����������� SVT limit: 260 msec
����������� VT zone:
Slow VT: 150 -188bpm - Monitor
����������������������� VT/VF: >188 bpm � Shock x6
�
Summary:
Successful implantation of MRI compatible Medtronic JAVA TECH LEAD-D system with sub pectoralis generator placement with attempted CS lead placement and conduction system pacing lead placement
Results/Recommendations:
-Please follow up CXR�
-Please provide patient with adequate pain control�
Instructions to be given to patient:�
- Please follow up with [facility] at [address] [place] [address] ([phone]) to get your wound checked in 2 weeks of your discharge. Then follow with
- Do not wet incision site until after it is evaluated at cardiology clinic. No baths or showers until then. Sponge baths / showers are OK but dab dry the dressing after it is wet.�
- Allow 'steri strips' to fall off on their own�
- Do not lift left elbow above shoulder, particularly with sudden jerking movements, for 1 month�
- Do not lift anything weighing more than 5 pounds with the left arm for 1 month�
- If you notice any fevers, shortness of breath, lightheadedness, chest pain, or worsening swelling in the wound site, please contact the arrhythmia clinic, contact your electrician chief, or present to the hospital for evaluation.�
Julio Cesar Coello MD
Electrophysiology
[2024-08-06] MEDS: ANCEF 5 IV ×2 (14:02→21:47)
[2024-08-06] MEDS: ROXICODONE 5 MG PO ×2 (14:02→20:03)
--- NOTE | 2024-08-06 15:07 | PTCARENOTE ---
Pt received post procedure awake, alert and oriented. Denied any pain upon arrival to floor. Left chest incision WNL with Aqucell and arm immobilizer intact. Vpaced in the 70's.
--- NOTE | 2024-08-06 15:28 | CM ---
CM following for DC planning needs.
Met w/ patient at bedside to complete initial assessment. Dtrs. also present.
Pt. resides alone in a private, 2 story home w/ ramp to enter. There is a stairglide to second level of home.
Functionally, patient is indep. w/ use of a RW or power wheelchair.
Patient anticipates DC to home once stable without any needs.
Plan for home, no needs.
[2024-08-06] MEDS: MEGACE 20 MG PO (20:02)
[2024-08-06] MEDS: TOPROL XL 25 MG PO (20:03)
[2024-08-06] MEDS: FARXIGA 10 MG PO (21:46)
[2024-08-06] MEDS: NEURONTIN 800 MG PO (21:46)
[2024-08-06] MEDS: MELATONIN 3 MG PO (23:00)
--- NOTE | 2024-08-06 23:11 | PTCARENOTE ---
Received patient at change of shift. V paced on the monitor, HR in the 70s. L chest dressing CDI, no evidence of hematoma. Immobilizer in place. Pt complained of 7/10 pain throughout whole body, PRN pain medicine administer as per OCT. Pt complained
of L leg phantom limb pain, Gabapentin ordered and administered as per OCT. Pts sleep medicine he takes at home is not available, PRN melatonin ordered. Call fan within reach.
[2024-08-07 00:49] VITALS: BP 109/69
--- NOTE | 2024-08-07 01:07 | PTCARENOTE ---
At approximately 2345, patient had a 7 beat run of PVCs. Pt was asleep in bed. AUSTEN Saldana made aware.
[2024-08-07 02:48] VITALS: BP 94/63
[2024-08-07] MEDS: ROXICODONE 5 MG PO (03:07)
[2024-08-07 03:54] LABS: Hemoglobin 12.5 g/dL (13.0-18.0); Mean Corp Hgb Conc. 32.9 g/dL (33.0-37.0); Mean Corpuscular Hgb 31.6 pg (27.0-31.0); Mean Corpuscular Volume 96.2 fL (80.0-94.0); Mean Platelet Volume 8.9 fL (7.4-10.4); Platelet Count 233 10^3/uL (130-400); Red Blood Cell Count 3.95 10^6/uL (4.70-6.10); Red Cell Dist. Width 14.4 % (11.5-14.5); White Blood Cell Count 8.4 10^3/uL (4.8-10.8)
[2024-08-07 04:19] LABS: Blood Urea Nitrogen 9 mg/dl (9-20); Carbon Dioxide 26 mmol/L (22-30); Chloride 101 mmol/L (98-107); Glucose 111 mg/dl (70-99); Magnesium 1.9 mg/dl (1.6-2.3); Potassium 3.8 mmol/L (3.5-5.1); Sodium 134 mmol/L (135-145); eGFR > 60.00
[2024-08-07 07:23] VITALS: BP 101/69
--- NOTE | 2024-08-07 07:43 | W.PN.CD ---
Today's Communication / Plan
-
- Stable for discharge
- Wound check in 1-2 weeks.
Impression / Plan
-
Mr. Davis is a 79 years old gentleman with non-ischemic cardiomyopathy with amyloid cardiomyopathy with class III NYHA symptoms with LVEF of 25% and has LBBB, with persistent low LVEF despite on guideline directed optimal medical treatment for over a
year. He is in need for a BiV pacing s/p cardiac resynchronization therapy with defibrillator (CHECKER/STOCKER-D)
NICM:
-NYHA class III
-EF 25-30% on recent echo
-continue Toprol and Jardiance
-cannot add on Entresto or MRA at this time due to BP limitations
-s/p CHECKER/STOCKER-D on 08/06/24 - conduction system pacing - not ideal EKG with LBB pacing due to severe conduction disease
-CS could not be cannulated
COPD:
-not wheezing, nodules on CT scan
-follow up with PCP/Pulm
PAF:
-stable in SR
-continue metoprolol
-back on Eliquis - was non complaint due to bleeding- hematemesis
-[id number] score is at least 5 for age, hypertension, CHF, CAD).
-Eliquis held yesterday with CHECKER/STOCKER implant.
-Resume today.
CAD:
-recent cath showed non-obstructive disease
-on ASA, statin, BB
Physical Exam
Vital Signs/Labs
Vital Signs
Temp Pulse Resp BP Pulse Ox
98.3 F 64 20 94/63 95
08/07/24 07:21 08/07/24 03:15 08/07/24 07:21 08/07/24 02:48 08/07/24 07:21
08/07/24 02:54
08/07/24 02:54
Magnesium 1.9 mg/dl (1.6-2.3) 08/07/24 02:54
Physical Exam
Constitutional: No acute distress and Comfortable
EENT: Anicteric and Moist mucous membranes
Cardiovascular: Rhythm & rate is regular, Pedal edema is absent and JVD pressure is normal
Respiratory: Respiratory effort normal, Lungs clear to auscul. and Wheeze Absent
GI: Soft, Non tender and Normal bowel sounds
Neuro/Psych: Alert, Oriented, AO x 3 and Motor deficits absent
Other: Cardiac Device Site
Data Reviewed
-
Date of Service: August 07, 2024
Medical Decision Making: Reviewed Test Results, Test Interpretation and Review of Case with other Provider
EKG: Tracing Personally Visualized and interpreted
Echo: Report Reviewed by me
X-Ray/CT/US/MRI/NUC/PET: Image Personally Visualized and interpreted
Labs: Labs Reviewed by me
Old Records: Reviewed
[2024-08-07] MEDS: PROTONIX 40 MG PO (07:56)
[2024-08-07] MEDS: CRESTOR 20 MG PO (07:56)
[2024-08-07] MEDS: FLOMAX 0.4 MG PO (07:56)
[2024-08-07] MEDS: LASIX 40 MG PO (07:56)
[2024-08-07] MEDS: LOW STRENGTH ASPIRIN 81 MG PO (07:56)
[2024-08-07] MEDS: TOPROL XL 25 MG PO (07:56)
[2024-08-07] MEDS: CYMBALTA DELAYED RELEASE 30 MG PO (07:56)
[2024-08-07] MEDS: MEGACE 20 MG PO (07:57)
[2024-08-07] MEDS: ELIQUIS 5 MG PO (08:38)
--- NOTE | 2024-08-07 09:29 | PTCARENOTE ---
Pt received this am with no c/o of any pain or discomfort. Room air sat 97%. Assisted oob to the chair for breakfast. Pt voiding clear ryland urine in the urinal. No c/o offered.
[2024-08-07 11:40] VITALS: BP 140/82
[2024-08-07 11:43] VITALS: BP 140/82
--- NOTE | 2024-08-07 12:24 | W.DS.TRANS ---
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
-
Discharge Instructions:
Discharge Diagnosis/Procedures BIV ICD implant
Diet Low Cholesterol,2 Gram Sodium
Driving Restrictions No driving for 1 week
Bathing Restrictions After dressing removed
Specialty Instructions Weigh Daily
Instructions:
Stand-Alone Forms: DC Inst - Implanted Device
Changes to Home Medications: No
Discharge Medications:
DC Medications w/original date entered in [facility]
tamsulosin 0.4 mg capsule 0.4 mg PO DAILY Urinary issue 05/03/20
pantoprazole 40 mg tablet,delayed release 40 mg PO DAILY Gastrointestinal issue 08/30/20
aspirin 81 mg chewable tablet 81 mg PO DAILY Blood clot prevention/tx 01/19/21
rosuvastatin 20 mg tablet 20 mg PO DAILY High cholesterol 01/19/21
docusate sodium 100 mg capsule (Colace) 100 mg PO HSPRN PRN constipation 04/27/21
empagliflozin 10 mg tablet (Jardiance) 10 mg PO HS 02/10/24
eszopiclone 3 mg tablet 3 mg PO HS 02/10/24
furosemide 40 mg tablet 40 mg PO DAILY 02/10/24
megestrol 20 mg tablet 20 mg PO BID 02/10/24
cholecalciferol (vitamin D3) 50 mcg (2,000 unit) tablet (Vitamin D3) 50 mcg PO DAILY 03/06/24
duloxetine 30 mg capsule,delayed release 30 mg PO DAILY 03/06/24
gabapentin 800 mg tablet 800 mg PO DAILYPRN PRN phantom pain 03/06/24
metoprolol succinate 25 mg tablet,extended release 24 hr 25 mg PO BID 03/06/24
oxycodone 5 mg tablet 5 mg PO Q4HPRN PRN severe pain 03/06/24
apixaban 5 mg tablet (Eliquis) 5 mg PO BID 08/06/24
Home Medication Changes
Pending Results: No
--- NOTE | 2024-08-07 12:28 | PTCARENOTE ---
Left pacer site WNL and aqucell intact. Pt discharged to home with his girlfriend. Discharge instructions given and reviewed with good understanding.
== END 2024-08-07 11:57 | disposition home or self-care (01) ==
LOC: CATH 06:45
PROVIDERS: Nurse Practitioner Adult Health; ATTENDING PHYSICIAN Internal Medicine Cardiovascular Disease; FAMILY PHYSICIAN Internal Medicine; OTHER PHYSICIAN Internal Medicine Cardiovascular Disease
DX: I50.22 Chronic systolic (congestive) heart failure (principal); I43 Cardiomyopathy in diseases classified elsewhere; I44.7 Left bundle-branch block, unspecified; Z79.82 Long term (current) use of aspirin; Z79.01 Long term (current) use of anticoagulants; Z79.899 Other long term (current) drug therapy; I42.8 Other cardiomyopathies
CPT/HCPCS: 33249; 71045; 80048; 83735; 85027; 93005; C1769; C1777; C1882; C1887; C1892; C1898; Q9967

== ENCOUNTER 2024-08-18 14:56 | Emergency (ER) | payer MEDICARE, BC, SELFPAY ==
[2024-08-18 15:09] VITALS: BP 118/70
[2024-08-18 15:14] VITALS: BMI 16.4
[2024-08-18 18:34] VITALS: BP 109/67
--- NOTE | 2024-08-24 07:56 | ED.GENMED ---
History of Present Illness
General
Chief Complaint: Head Injury
Source: patient
Exam Limitations: none
Time Seen by Provider: 08/18/24 17:50
Nursing documentation reviewed up to this point in time: agreed with
History of Present Illness
History of Present Illness:
pt is a 79 y/o M afib, vasculopath on eliquis
BKA
chronic gait instability due to his prosthesis
was backing up from his closing trunk and slipped backwards and fell hitting his head onthe asphalt
he has laceration to posterior scalp
mild headache
had no LOC or dizziness prior to falling
no neckpain, weakness, numbness, back pain, ches tpain, shortness of breath, vomiting
has been here a few hours and no new ocncussive symptoms
did not take his eliquis yet today
tetanus is utd
Past History
Past History
ED Past Medical History: Arrthythmia (atrial fib), Cancer, CHF, HTN, Hypercholesterolemia, [place] and Other (Diverticulitis, PAD)
ED Past Surgical History: Bowel resection, Cardiac (Stents, Ablation, carotid artery surgery,), Orthopedic (Bilateral knee replacements, right ankle replacement and Left shoulder replacement) and Other (Femoral bypass right leg, hernia repair. Left
leg stent and angioplasty)
Social History
Tobacco: Former smoker
Alcohol: Occasional ([facility])
Drug: None
Personal:
Living: with family
Employment: Employed
Family History
Family History: Other (Noncontributory)
Review of Systems
Review of Systems
Allergies reviewed?: Yes
All Other Systems: Not applicable
Phy Exam
Physical Exam
Physical Exam:
GENERAL: Alert , in no apparent distress
HEAD: posterior scalp irregular laceration approx 4 cm with hematoma
mild tenderness
no active bleeding
NECK: no midline tenderness, active ROM intact, no paraspinal muscle tenderness;
EYE: pupils equal and reactive, EOMs intact.
ENT: o/p clr, mmm. no hemotympanum
CARDIAC: Regular rate and rhythm, no edema
LUNGS: Clear breath sounds bilaterally, no acute respiratory distress, no wheezes/rales/rhonchi
ABDOMEN: Soft, without focal tenderness, no r/g, no cvat
NEUROLOGICAL: Alert and oriented, no focal neuro deficits, CN intact, 5/5 strength, sensation intact
SKIN: Warm and dry,
MUSCULOSKELETAL:BKA LLE
PSYCH: Normal and appropriate interaction.
Course
Orders/Labs/Results
Orders:
Orders
08/18/24 15:16
CT Head W/o Iv Contrast Urgent
Comment:
Reason For Exam[facility]
Vital Signs
Initial and Last Documented VS:
Initial Vital Signs
Pulse Resp BP Pulse Ox
103 18 118/70 94
08/18/24 15:09 08/18/24 15:09 08/18/24 15:09 08/18/24 15:09
Last Documented Vital Signs
Temp Pulse Resp BP Pulse Ox
36.3 C 62 18 109/67 92
08/18/24 18:34 08/18/24 18:34 08/18/24 15:09 08/18/24 18:34 08/18/24 18:34
Procedures
Laceration Closure
Posterior Scalp:
Size of Wound in cm: 4
Description of Wound Edges: surrounded by abrasion, flap-well vascularized and macerated
Preparation: cleaned with saline
Anesthesia: 1% Lidocaine with epi
Revision/Debridement: minor revision
Wound exploration: explored to base- no FB
Type of Closure: single layer closure
Skin Closure Material: 4-0 prolene
Number of sutures: 5
MDM/Problems Addressed
Differential Diagnosis Includes:
head injury, laceration, concussion, subdural
MDM/Problems Addressed:
79 y/o M on eliquis
mechanical fall backwards hitting head on ground
no LOC
no confusion
laceration bleeding controlled
head ct hematoma and laceration without any ICH
no neck pain
no other complaints
sutured wound in scalp, bleedin gcontrolled
dressing appied
wound care instructions
return precautions
*Critical Care Note
Total Time (30-74mins, 75-104mins- exclusive of procedures): Not Applicable
ED Attending Note
-
Portions of this chart may have been created with voice recognition software.� Occasional wrong word or��sound alike� substitutions may have occurred due to the inherent limitations of voice recognition software.
Discharge Plan
Departure
Patient Disposition: Home (Routine Discharge)
Date of Disposition: 08/18/24
Time of Disposition: 18:25
Patient with high blood pressure during this ER visit?: No
Condition: Fair
Covid-19: Not Applicable
Discharge Problem:
Complex laceration of scalp
Instructions: Head Injury in Adults (DC), Laceration Repair With Stitches (DC)
Prescriptions:
No Action
tamsulosin 0.4 MG capsule
0.4 mg PO DAILY
pantoprazole 40 MG tablet,delayed release (DR/EC)
40 mg PO DAILY
aspirin 81 MG tablet,chewable
81 mg PO DAILY
rosuvastatin 20 MG tablet
20 mg PO DAILY
docusate sodium [Colace] 100 MG capsule
100 mg PO HSPRN PRN (Reason: constipation)
furosemide 40 mg Tablet
40 mg PO DAILY
megestrol 20 mg Tablet
20 mg PO BID
eszopiclone 3 mg Tablet
3 mg PO HS
Jardiance 10 mg Tablet
10 mg PO HS
metoprolol succinate 25 mg Tablet Extended Release 24 Hr
25 mg PO BID
duloxetine 30 mg Capsule,Delayed Release(Dr/Ec)
30 mg PO DAILY
cholecalciferol (vitamin D3) [Vitamin D3] 50 mcg (2,000 unit) Tablet
50 mcg PO DAILY
oxycodone 5 mg tablet
5 mg PO Q4HPRN PRN (Reason: severe pain)
gabapentin 800 mg Tablet
800 mg PO DAILYPRN PRN (Reason: phantom pain)
Patient Comments:
03/06/24: No [facility] records, [facility] has it last taken on 04/25/23. Patient may have leftover tablets from that time.
Eliquis 5 mg Tablet
5 mg PO BID
Activity Restrictions/Additional Instructions:
You have a hematoma and a laceration to the back of your scalp. The CT was negative for intracranial bleeding. We discussed possibly holding your Eliquis tonight however you are going to speak with your impact hammer operator about this. The bleeding is
controlled for now. Keep the wound clean and dry until and then you can get it wet in the shower. It may ooze some. The stitches will need to be removed in 7 days. Please follow-up with your doctor.
Watch for significant headache, vomiting, confusion, weakness etc. and return immediately for the symptoms. Otherwise keep the wound clean and dry, shower once a day starting and make sure that there is no dried blood on top of the
stitches so they can be easily removed. Return for any concern
Interventions
Interventions:
*Risk Screen - Suicide Last Done: 08/18/24 17:50
*General Assessment Last Done: 08/18/24 17:50
*Neglect/Abuse Screening Last Done: 08/18/24 15:09
ED- Fall Risk Assessment Last Done: 08/18/24 17:55
*ED COVID-19 Vaccine History Last Done: 08/18/24 15:09
*Nursing Disposition Last Done: 08/18/24 18:46
ED- Neurological Assessment Last Done: 08/18/24 17:50
ED-Skin Assessment Last Done: 08/18/24 17:50
Discharge Date and Time
Discharge Date/Time: 08/18/24 18:46
Print Language: GAMBIAN
== END 2024-08-18 18:46 | disposition home or self-care (01) ==
LOC: EMR 14:56
PROVIDERS: EMERGENCY PHYSICIAN Emergency Medicine; FAMILY PHYSICIAN Internal Medicine
DX: S01.01XA Laceration without foreign body of scalp, initial encounter (principal); W01.0XXA Fall on same level from slipping, tripping and stumbling without subsequent striking against object, initial encounter; Z87.891 Personal history of nicotine dependence
CPT/HCPCS: 99284; 12002; 70450

== ENCOUNTER → 2024-09-01 10:08 | Outpatient (REF) | payer MEDICARE, BC, SELFPAY | LOC: RAD 10:08 | PROVIDERS: ATTENDING PHYSICIAN Internal Medicine Cardiovascular Disease; FAMILY PHYSICIAN Internal Medicine | DX: I50.32 Chronic diastolic (congestive) heart failure (principal) | CPT/HCPCS: 78803; A9538 ==

== ENCOUNTER 2024-09-09 14:51 | Emergency (ER) | payer MEDICARE, BC, SELFPAY ==
[2024-09-09 15:01] VITALS: BP 128/83
--- NOTE | 2024-09-09 15:05 | EDRN ---
pt refusing bloodwork.
[2024-09-09 16:20] VITALS: BMI 17.0
--- NOTE | 2024-09-09 16:30 | ED.GENMED ---
History of Present Illness
General
Chief Complaint: Fall
Source: patient
Exam Limitations: none
Time Seen by Provider: 09/09/24 16:17
Nursing documentation reviewed up to this point in time: agreed with
History of Present Illness
History of Present Illness:
Patient is a 79-year-old male with significant past medical history including A-fib on Eliquis cardiograph CHF CAD hyperlipidemia right BKA with prosthesis presents to the ER for evaluation after fall. Patient is had frequent falls related to his
prosthesis reports he fell 2 hours ago. He was walking up his significant other front steps and fell on the cement. He did hit his head, denies loss of consciousness. She assisted him up. Denies any headache nausea vomiting. He recently had
squamous cell carcinoma removed to his left forehead and sutures were removed last week and he believes this area is opened again.
He denies any headache, nausea or vomiting. He has not taken his Eliquis in 2 days simply because he has not taken it. He complains of soreness to left shoulder/elbow.
Past History
Past History
ED Past Medical History: Arrthythmia (atrial fib), Cancer, CHF, HTN, Hypercholesterolemia, [place] and Other (Diverticulitis, PAD)
ED Past Surgical History: Bowel resection, Cardiac (Stents, Ablation, carotid artery surgery,), Orthopedic (Bilateral knee replacements, right ankle replacement and Left shoulder replacement) and Other (Femoral bypass right leg, hernia repair. Left
leg stent and angioplasty)
Social History
Tobacco: Former smoker
Alcohol: Occasional ([facility])
Drug: None
Personal:
Living: with family
Employment: Employed
Family History
Family History: Other (Noncontributory)
Review of Systems
Review of Systems
Allergies reviewed?: Yes
All Other Systems: ROS reviewed and negative except as documented in HPI and ROS
Constitutional: Reports no symptoms; Denies fever, fatigue or chills
Respiratory: Reports no symptoms
Cardiac: Reports no symptoms
ABD/GI: Reports no symptoms; Denies nausea or vomiting
Musculoskeletal: Reports other (left elbow /shoulder )
Skin: Reports other (wound to left forehead opened up )
Neurological: Denies dizzy or headache
Phy Exam
General Physical Exam
General Presentation: no apparent distress
General age: appears stated age
General Skin: warm and dry
General Habitus: elderly
General Mental: alert
General Hydration: appears well hydrated
Cardiovascular Exam
Cardiovascular Exam: regular rate/rhythm and normal peripheral pulses
Pulmonary Exam
Pulmonary Exam: no respiratory distress and other (slight crackles b/l bases )
Neurological Exam
Neurological Exam: alert and oriented x3
Musculoskeletal Exam
Musculoskeletal Exam: other (Left parietal region with abrasion wound from skin cancer appears mildly dehisced/laceration approx. 2cm by 1 cm , + skin tear to left elbow , pain with left shoulder abduction mildly tender to left shoulder good
strong pulses)
Skin Exam
Skin Exam: normal color and warm/dry
Psychiatric Exam
Psychiatric Exam: normal mood/affect
Course
Orders/Labs/Results
Orders:
Orders
09/09/24 15:[address] [CT Head W/o Iv Contrast] Urgent
Comment:
Reason For Exam: pain
CR Elbow - Left Min 3 Views Urgent
Comment:
Reason For Exam: pain
CR Shoulder, Trauma - Left Urgent
Comment:
Reason For Exam: pain
09/09/24 16:28
CT Cervical Spine W/o Iv Contr Urgent
Comment:
Reason For Exam: trauma
Vital Signs
Initial and Last Documented VS:
Initial Vital Signs
Temp Pulse Resp BP Pulse Ox
98 F 95 16 128/83 95
09/09/24 15:01 09/09/24 15:01 09/09/24 15:01 09/09/24 15:01 09/09/24 15:01
Last Documented Vital Signs
Temp Pulse Resp BP Pulse Ox
98 F 72 16 100/70 99
09/09/24 15:01 09/09/24 18:15 09/09/24 18:15 09/09/24 18:15 09/09/24 18:15
Customer Experience Strategist consulted with Physician
Customer Experience Strategist consulted with physician?: Yes
Name of Physician Consulted: Betty
Procedures
Laceration Closure
Left Head:
Status of Wound: clean
Size of Wound in cm: 2
Description of Wound Edges: other (Abrasion with wound dehiscence from previous laceration)
Preparation: cleaned with saline
Type of Closure: other (Steri-Strips)
MDM/Problems Addressed
MDM/Problems Addressed:
As documented patient is a 79-year-old male who has frequent falls related to his right BKA prosthesis presented to the ER for fall. He describes mechanical fall. He did hit his head and left arm area. He has a skin tender his left arm but no
obvious fractures. He is on Eliquis but has not taken it in the past couple days. He recently had skin cancer removed to his left frontal/bahai parietal region and did have sutures removed 1 week ago. This area is slightly dehisced. There is
also surrounding abrasion I was able to place Steri-Strips.
He is awake alert within normal neurologic Cedric. CT head negative for hemorrhage however does mention 4.0 cm crescent-shaped region of high attenuation various possibilities listed including malignant soft tissue tumor skin cancer which patient
recently had done with hematoma/inflammatory disease. He is following up with his polymerization oven tender this coming Saturday discussed for patient to review findings with his physician. He was given a copy of his CAT scan report. In addition CT cervical
spine negative for fracture but does mention some canal stenosis he is aware of this. Incidentally there is also pleural effusion listed on his CT. He has no complaints of shortness of breath, he is not hypoxic in no acute distress. Discussed the
importance of reviewing this with his family doctor.
*Radiology
Radiology exam reviewed: radiology read reviewed
*Pulse Oximetry
Patient hypoxic: no
*Critical Care Note
Total Time (30-74mins, 75-104mins- exclusive of procedures): Not Applicable
ED Attending Note
-
Portions of this chart may have been created with voice recognition software.� Occasional wrong word or��sound alike� substitutions may have occurred due to the inherent limitations of voice recognition software.
Discharge Plan
Departure
Patient Disposition: Home (Routine Discharge)
Date of Disposition: 09/09/24
Time of Disposition: 19:13
Patient with high blood pressure during this ER visit?: No
Covid-19: Not Applicable
Discharge Problem:
Head injury, Laceration, Abrasion
Instructions: Wound Care (DC), Head Injury in Adults (DC), Skin Abrasions (DC)
Prescriptions:
No Action
tamsulosin 0.4 MG capsule
0.4 mg PO DAILY
pantoprazole 40 MG tablet,delayed release (DR/EC)
40 mg PO DAILY
aspirin 81 MG tablet,chewable
81 mg PO DAILY
rosuvastatin 20 MG tablet
20 mg PO DAILY
docusate sodium [Colace] 100 MG capsule
100 mg PO HSPRN PRN (Reason: constipation)
furosemide 40 mg Tablet
40 mg PO DAILY
megestrol 20 mg Tablet
20 mg PO BID
eszopiclone 3 mg Tablet
3 mg PO HS
Jardiance 10 mg Tablet
10 mg PO HS
metoprolol succinate 25 mg Tablet Extended Release 24 Hr
25 mg PO BID
duloxetine 30 mg Capsule,Delayed Release(Dr/Ec)
30 mg PO DAILY
cholecalciferol (vitamin D3) [Vitamin D3] 50 mcg (2,000 unit) Tablet
50 mcg PO DAILY
oxycodone 5 mg tablet
5 mg PO Q4HPRN PRN (Reason: severe pain)
gabapentin 800 mg Tablet
800 mg PO DAILYPRN PRN (Reason: phantom pain)
Patient Comments:
03/06/24: No [facility] records, [facility] has it last taken on 04/25/23. Patient may have leftover tablets from that time.
Eliquis 5 mg Tablet
5 mg PO BID
Referrals:
Ricky Hayes MD [Active] -
Abdelrahman Edwards DO [Family Provider] -
Activity Restrictions/Additional Instructions:
Steri strips were applied to wound. Keep clean and dry for the next 24 hours after 24 hours May lightly wash wounds with soap water twice a day pat dry. Trim Steri-Strips as needed. Follow-up with family doctor in extremities reevaluation. In
addition follow-up with your family doctor for reevaluation of pleural effusion on chest x-ray. Please review your CAT scan results with your polymerization oven tender and family doctor for CT head findings.
Return if any worsening of symptoms.
There were no obvious fractures on x-ray however follow-up with orthopedics for continued discomfort. Ice the affected area for the next 24 hours 20 minutes at a time several times a day. Take Tylenol as needed for pain.
Interventions
Interventions:
*Risk Screen - Suicide Last Done: 09/09/24 15:01
*General Assessment Last Done: 09/09/24 16:20
*Neglect/Abuse Screening Last Done: 09/09/24 15:01
ED- Fall Risk Assessment Last Done: 09/09/24 16:20
*ED COVID-19 Vaccine History Last Done: 09/09/24 16:20
ED-Musculoskeletal Assessment Last Done: 09/09/24 16:20
ED- Neurological Assessment Last Done: 09/09/24 16:20
ED-Skin Assessment Last Done: 09/09/24 16:20
Discharge Date and Time
Print Language: GERMAN
[2024-09-09 18:15] VITALS: BP 100/70
--- NOTE | 2024-09-09 19:00 | EDRN ---
Rupesh Shaw NP in room w/ pt.
== END 2024-09-09 20:00 | disposition home or self-care (01) ==
LOC: EMR 14:51
PROVIDERS: EMERGENCY PHYSICIAN Student in an Organized Health Care Education/Training Program; FAMILY PHYSICIAN Internal Medicine
DX: S09.90XA Unspecified injury of head, initial encounter (principal); S00.81XA Abrasion of other part of head, initial encounter; W19.XXXA Unspecified fall, initial encounter; Y93.01 Activity, walking, marching and hiking; I48.91 Unspecified atrial fibrillation; I11.0 Hypertensive heart disease with heart failure; I50.9 Heart failure, unspecified; I25.10 Atherosclerotic heart disease of native coronary artery without angina pectoris; E78.00 Pure hypercholesterolemia, unspecified; C49.9 Malignant neoplasm of connective and soft tissue, unspecified; I25.2 Old myocardial infarction; I73.9 Peripheral vascular disease, unspecified; Z79.01 Long term (current) use of anticoagulants; Z87.891 Personal history of nicotine dependence; Z89.511 Acquired absence of right leg below knee; Z95.5 Presence of coronary angioplasty implant and graft; Z96.612 Presence of left artificial shoulder joint; Z96.653 Presence of artificial knee joint, bilateral; Z96.661 Presence of right artificial ankle joint
CPT/HCPCS: 99284; 70450; 72125; 73030; 73080

== ENCOUNTER 2024-10-22 13:03 | Inpatient (IN) | payer MEDICARE, BC, SELFPAY ==
[2024-10-22] VITALS (67 sets, daily range): BP systolic 50–146; BP diastolic 13–105; BMI 15.3
[2024-10-22 11:17] LABS: Glucose - Point of Care 142 mg/dl (70-99)
[2024-10-22] MEDS: CORDARONE 103 MG IV (11:20)
[2024-10-22] MEDS: ZOFRAN 4 MG IV (11:27)
[2024-10-22] MEDS: NSS 500 IV (11:28)
[2024-10-22] MEDS: CORDARONE 518 MG IV (11:31)
--- NOTE | 2024-10-22 11:33 | PHANOTE ---
Addendum entered by Arlet Aguilar 10/22/24 11:37:
spoke to family in waiting (brother and daughter of patient) they were going to get for information about if patient took his morning meds. not sure if daughter was going to call another family member.
Original Note:
med rec note- patient does not know his meds, when ask family informed me that he is here all the time and nothing changed.
[2024-10-22 11:38] LABS: Hematocrit 44.8 % (39.0-52.0); Hemoglobin 14.8 g/dL (13.0-18.0); Mean Corpuscular Hgb 32.1 pg (27.0-31.0); Mean Corpuscular Volume 97.2 fL (80.0-94.0); Mean Platelet Volume 9.9 fL (7.4-10.4); Platelet Count 158 10^3/uL (130-400); Red Blood Cell Count 4.61 10^6/uL (4.70-6.10); Red Cell Dist. Width 14.6 % (11.5-14.5); White Blood Cell Count 11.7 10^3/uL (4.8-10.8)
--- NOTE | 2024-10-22 11:38 | ED.GENMED ---
History of Present Illness
General
Chief Complaint: Blood Sugar Problem
Source: patient
Exam Limitations: none
Time Seen by Provider: 10/22/24 11:11
Nursing documentation reviewed up to this point in time: agreed with
History of Present Illness
History of Present Illness:
Patient with history of lymphoma, bladder cancer, significant cardiac history including multiple cardiac stents as well as previous cardiac arrest, with most recent echocardiogram showing EF 25%, status post defibrillation placement in July
2023, presents to ED secondary to persistent vomiting over the past 4 days along with generalized weakness. Patient is complaining of worsening lower back pain, more than usual. Denies fever or chills. Denies diarrhea. Denies chest pain. Denies
abdominal pain. Denies recent change in medications or diet. Denies recent travel. Per paramedics, patient was found to be hypoglycemic with blood sugar in 30s, when initially seen at home. Patient was given D10 infusion en route to the hospital.
Past History
Past History
ED Past Medical History: Arrthythmia (atrial fib), Cancer, CHF, HTN, Hypercholesterolemia, [place] and Other (Diverticulitis, PAD)
ED Past Surgical History: Bowel resection, Cardiac (Stents, Ablation, carotid artery surgery,), Orthopedic (Bilateral knee replacements, right ankle replacement and Left shoulder replacement) and Other (Femoral bypass right leg, hernia repair. Left
leg stent and angioplasty)
Social History
Tobacco: Former smoker
Alcohol: Occasional ([facility])
Drug: None
Personal:
Living: with family
Employment: Employed
Family History
Family History: Other (Noncontributory)
Review of Systems
Review of Systems
Allergies reviewed?: Yes
All Other Systems: ROS reviewed and negative except as documented in HPI and ROS
Constitutional: Reports fatigue
EENT: Reports no symptoms
Respiratory: Reports no symptoms; Denies cough or trouble breathing
Cardiac: Denies chest pain or diaphoresis
ABD/GI: Reports vomiting
Musculoskeletal: Reports no symptoms
Skin: Reports no symptoms
Neurological: Reports weakness; Denies dizzy or headache
Phy Exam
Physical Exam
Physical Exam:
Physical Exam
General: moderate distress, acutely ill. ill appearing. hypotensive, tachycardic. afebrile. cachetic
Head: nc/at. eomi
Neck: supple. no meningeal signs.
Heart: tachycardic, no murmur. equal radial pulses.
Lungs: mild respiratory distress. diminished breath sounds bilaterally
Abdomen: normal bowel sounds. not tender.
Neuro: alert and oriented x 3. no focal neurological deficits
Skin: no rash
Psychiatric: well kept. interactive and cooperative
Extremities: left AKA
Course
Orders/Labs/Results
Orders:
Orders
10/22/24 11:11
Electrocardiogram (*1) Urgent
Reason for Study: QTc Monitoring
EKG- Treatment ONCE
10/22/24 11:12
Urinalysis Reflex To Culture Urgent
Date Specimen was Collected: 10/22/24
Time Specimen was Collected: 11:41
10/22/24 11:17
Complete Blood Count/With Diff Urgent
Comprehensive Metabolic Panel Urgent
Magnesium Urgent
NT-proBNP Urgent
Comment: ADDON
Troponin I Urgent
10/22/24 11:18
Amiodarone [Cordarone] 150 mg .ROUTE .[facility]
10/22/24 11:20
Amiodarone [Cordarone] 150 mg Dextrose 5%/Water 100 ml [D5w] 100 ml IV NOW
10/22/24 11:23
Amiodarone [Cordarone] 150 mg Dextrose 5%/Water 100 ml [D5w] 100 ml IV NOW
10/22/24 11:24
0.9% Sodium Chloride 500 ml [Nss] 500 ml IV BOLUS
Ondansetron Injectable [Zofran] 4 mg IV NOW STA
10/22/24 11:30
Amiodarone [Cordarone] 900 mg DEXTROSE 5% PVC-free BAG [D5W PVC-free BAG] 500 ml IV PER PROTOCOL
Initial Dose in mg/min:: 1
Duration of initial dose (hours):: 6
Subsequent dose in mg/min:: 0.5
Duration of subsequent dose (hours):: 18
Maximum dose in mg/min:: 1
Hold and notify provider if:: Heart rate < 60 BPM or SBP < 90 mmHg or MAP < 60 mmHg
10/22/24 11:38
Amiodarone [Cordarone] 150 mg Dextrose 5%/Water 100 ml [D5w] 100 ml IV NOW
10/22/24 11:59
Dextrose 50%-Water [Dextrose 50% Syringe] 25 grams .ROUTE .[facility]
10/22/24 12:00
Dextrose 50%-Water [Dextrose 50% Syringe] 12.5 grams IV NOW STA
10/22/24 12:09
CR Chest Portable - 1 View Urgent
Comment:
Reason For Exam: sob
Reason Study Needs to be Portable: Patient Unstable
10/22/24 12:28
Add On- LAB Urgent
Tests Added?: ProBNP
10/22/24 12:46
0.9% Sodium Chloride 250 ml [Nss] 250 ml IV BOLUS
10/22/24 12:47
Admit/Transfer Patient As Directed
Co-Sign Provider:
Level of Care: Inpatient admission
Assign to:: ICU
Physician / Group: talon
Diagnosis: cardiogenic shock
Reason for Hospitalization: cardiogenic shock
Expected length of stay greater than two midnights?: Yes
ELOS- Estimated Length of Stay in days: 2
I certify the patient meets the requirements for IP care: Yes
PRN Pain Medication Management As Directed
May give lesser potent ordered pain med per pt: Yes
preference::
Protocol:: Medication orders for pain may be administered in a
manner that supports deferring to patient preference
when the pt is:
- Requesting an ordered lesser potent pain medication.
Least to most potent pain medications are defined
as: acetaminophen < NSAID < tramadol < opioids
(morphine, oxycodone, hydromorphone).
- Requesting a lesser dose of the same medication IF
ORDERED.
- Requesting a less intrusive route of administration
if both routes are prescribed by the provider (PO <
IV).
10/22/24 12:48
Code Status As Directed
Resuscitation Status: Full Code
10/22/24 12:59
Abdomen/Pelvis wo Contrast CT [CT Abd/pelvis Wo Iv Cont] Urgent
Comment:
Reason For Exam: shock, inf source, cardiac source
10/22/24 13:00
Dextrose 5%/Water 1000 ml [D5w] 1,000 ml Sodium Bicarbonate 150 meq IV 100 mls/hr
10/22/24 13:14
Lactate Level [Lactic Acid] Urgent
Blood Culture Q30M
VIKAS Source: Blood/Venous
Specimen Description:
Blood Culture Q30M
VIKAS Source: Blood/Venous
Specimen Description:
10/22/24 13:15
NORepinephrine 4 MG/250 ML [Levophed] 4 mg in 250 ml IV PER PROTOCOL
Initial dose in mcg/min, then titrate:: 5
Titrate to keep:: SBP > 90 mmHg
Titrate by mcg/min:: 1-2 mcg/min
Frequency of titrations (minutes):: 5
Maximum dose in ICU in mcg/min:: 30
Maximum dose in IMU in mcg/min:: 8
Maximum dose in IVU in mcg/min:: 4
Begin to taper infusion when:: Remained at goal for 4hrs
Taper by mcg/min:: 1-2 mcg/min
Frequency of taper (minutes) if patient maintains goal:: 30
Taper to off?: Yes
If infusion off & no longer maintaining goal:: Contact Provider
10/22/24 14:39
Troponin I Q6H
Docusate Sodium [Colace] 100 mg PO HSPRN PRN
HYDROmorphone [Dilaudid] 0.5 mg IV Q4HPRN PRN
10/22/24 14:39
CARDIOLOGY CONSULT Routine
Consulting Provider: Michel Machado
Was physician already notified: Yes
Accucheck [Bedside Glucose Monitoring] As Directed
Frequency: Q2H
Activity As Directed
Activity Level: As Tolerated
Bladder Scan As Directed
Follow Bladder Retention/Intermittent Cath Algorithm?: Yes
PRN if no void in __ hours: 6
Frequency: Per Retention Algorithm
If Bladder Scan Result >: 400
then:: Straight cath
Straight Cath As Directed
Frequency: Per Retention Algorithm
Additional Instructions: straight cath as needed per acute urinary retention algorithm for 24 hrs
Additional Instructions: for bladder scan greater than 400 mL
Vital Signs As Directed
Frequency: Per unit guidelines
DX Deep Vein Thrombosis Video Routine
10/22/24 Dinner
NPO
Allow oral meds: Yes
Allow clear liquids: Sips of Clears
10/22/24 15:03
Gabapentin [Neurontin] 100 mg PO TIDPRN PRN
10/22/24 16:00
Heparin 26904 Units/250 ml 25,000 units in 250 ml IV PER PROTOCOL
Weight to be used for heparin protocol in kilograms (kg):: 45.5
Protocol:: Cardiac Tx/Acute Coronary
PTT Goal Range to be used:: PTT 73 to 111 seconds
Order type:: Initial
INITIAL Infusion Dose (UNITS/KG/hr) & then follow protocol:: 12 units/kg/hr
Infusion Dose in UNITS/hr & then follow protocol (UNITS/hr):: 550
INFUSION RATE in mL/hr & then follow protocol (mL/hr):: 5.5
PTT less than or equal to 64 seconds:: Increase rate by 200 units/hr (+ 2 mL/hr)
PTT 64.1 to 72.9 seconds:: Increase rate by 100 units/hr (+ 1 mL/hr)
PTT 73 to 111 seconds:: Target Range. No change in rate.
PTT 111.1 to 130.9 seconds:: Decrease rate by 100 units/hr (- 1 mL/hr)
PTT 131 to 199.9 seconds:: HOLD for 1 hr. Then decrease rate by 200 units/hr (- 2 mL/hr)
PTT greater than or equal to 200 seconds:: HOLD for 2 hrs & Notify Provider. Then decrease by 200 units/hr (-
2 mL/hr)
Lab follow-up:: Each change, PTT q6h until 2 consecutive are therapeutic. Then PTT
daily.
10/22/24 20:39
Troponin I Q6H
10/22/24 22:00
Zolpidem Tartrate [Ambien] 10 mg PO HS
10/23/24 02:39
Troponin I Q6H
10/23/24 06:00
Complete Blood Count/With Diff IN AM
Comprehensive Metabolic Panel IN AM
10/23/24 08:00
Aspirin Chewable [Low Strength Aspirin] 81 mg PO DAILY
Cholecalciferol (Vitamin D3) [VITAMIN D3 (cholecalciferol)] 50 mcg PO DAILY
Megestrol [Megace] 20 mg PO BID
Pantoprazole [Protonix] 40 mg PO DAILY
Rosuvastatin Calcium [Crestor] 20 mg PO DAILY
10/23/24 08:39
Troponin I Q6H
Abnormal Lab Results
10/22/24 10/22/24 10/22/24
11:15 11:17 11:56
WBC 11.7 H 10^3/uL
(4.8-10.8)
RBC 4.61 L 10^6/uL
(4.70-6.10)
MCV 97.2 H fL
(80.0-94.0)
MCH 32.1 H pg
(27.0-31.0)
RDW 14.6 H %
(11.5-14.5)
Abs Immat Gran (auto) 0.1 H 10^3/uL
(0-0.05)
Absolute Neuts (auto) 10.7 H 10^3/uL
(1.4-6.5)
Absolute Lymphs (auto) 0.2 L 10^3/uL
(1.2-3.4)
Immature Gran % 1.2 H %
(0-0.5)
Neutrophils % 91.9 H %
(42.2-75.2)
Lymphocytes % 1.9 L %
(20.5-51.1)
Sodium 132 L mmol/L
(135-145)
Potassium 5.2 H mmol/L
(3.5-5.1)
Chloride 97 L mmol/L
(98-107)
Carbon Dioxide 10 L* mmol/L
(22-30)
BUN 64 H mg/dl
(9-20)
Creatinine 3.6 H mg/dL
(0.7-1.3)
Glucose 150 H mg/dl
(70-99)
Calcium 7.7 L mg/dl
(8.4-10.2)
Magnesium 2.4 H mg/dl
(1.6-2.3)
Total Bilirubin 2.2 H mg/dl
(0.2-1.3)
AST 3506 H* U/L
(17-59)
ALT 1512 H* U/L
(0-50)
Alkaline Phosphatase 159 H U/L
(38-126)
Troponin I 1.540 H* ng/ml
Total Protein 5.7 L g/dl
(6.3-8.2)
Albumin 3.1 L g/dl
(3.5-5.0)
POC Glucose 142 H mg/dl 60 L mg/dl
(70-99) (70-99)
10/22/24 11:17
10/22/24 11:17
Vital Signs
Initial and Last Documented VS:
Initial Vital Signs
Pulse Resp
115 31
10/22/24 11:25 10/22/24 11:25
Last Documented Vital Signs
Temp Pulse Resp BP Pulse Ox
94.3 F L 114 27 111/91 74
10/22/24 15:23 10/22/24 15:30 10/22/24 15:30 10/22/24 15:30 10/22/24 12:15
MDM/Problems Addressed
MDM/Problems Addressed:
During initial evaluation, patient noted to be in ventricular tachycardia with heart rate greater than 160 bpm. Patient however, is alert, awake, with initially stable blood pressure. As such, decision made to administer amiodarone 150 mg bolus
and start infusion afterwards. After initial bolus of amiodarone, heart rate noted to slow down, but patient becoming hypotensive. Patient started on IV fluid bolus.
Blood work reviewed and discussed with admitting hospitalist and on-call cardiology, . Awaiting bedside evaluation.
Blood sugar noted to be decreasing steadily. As such, patient will be started on D10 solution.
Patient's presentation very complex, but further evaluation including potential infection as a source for patient's initial symptoms will need to be evaluated as inpatient.
Critical care statement: A total of 100 minutes of critical care time was provided for this patient. This includes management of unstable vital signs, evaluation of the patient at bedside, reviewing the patient's pertinent medical records,
discussion with consultants, review of old EKGs and review of pertinent medical records. This time with separate from time utilized to perform the aforementioned documented procedures
*EKG
Interpreted by ED Provider?: Yes
EKG Intrepretation Date: 10/22/24
Heart Rate: 122
Rhythm: ventricular paced
*Critical Care Note
Total Time (30-74mins, 75-104mins- exclusive of procedures): 100 min
ED Attending Note
-
Portions of this chart may have been created with voice recognition software.� Occasional wrong word or��sound alike� substitutions may have occurred due to the inherent limitations of voice recognition software.
Discharge Plan
Departure
Patient Disposition: Admit
Date of Disposition: 10/22/24
Time of Disposition: 12:26
Admit to: ICU
Presentation/result/management discussed w/ accepting MD/DO: Hospitalist
Discharge Problem:
Metabolic acidosis, Dehydration, Ventricular tachycardia, Abnormal cardiac enzyme level
Interventions
Interventions:
*Risk Screen - Suicide Last Done: 10/22/24 11:10
*General Assessment Last Done: 10/22/24 11:10
*Neglect/Abuse Screening Last Done: 10/22/24 11:10
*ED COVID-19 Vaccine History Last Done: 10/22/24 11:10
*Nursing Disposition Last Done: 10/22/24 14:48
ED- Neurological Assessment Last Done: 10/22/24 11:21
Discharge Date and Time
Discharge Date/Time: 10/22/24 14:48
[2024-10-22 11:51] LABS: % Basophils 0.5 % (0-2); % Immature Granulocytes 1.2 % (0-0.5); % Lymphocytes 1.9 % (20.5-51.1); % Monocytes 4.5 % (1.7-9.3); % Neutrophils 91.9 % (42.2-75.2); Absolute Basophils 0.1 10^3/uL (0-0.2); Absolute Immature Granulocytes 0.1 10^3/uL (0-0.05); Absolute Lymphocytes 0.2 10^3/uL (1.2-3.4); Absolute Monocytes 0.5 10^3/uL (0.1-0.6); Absolute Neutrophils 10.7 10^3/uL (1.4-6.5); Nucleated Red Blood Cells % 0 % (-)
[2024-10-22 11:57] LABS: Albumin 3.1 g/dl (3.5-5.0); Alkaline Phosphatase 159 U/L (38-126); Blood Urea Nitrogen 64 mg/dl (9-20); Calcium 7.7 mg/dl (8.4-10.2); Carbon Dioxide 10 mmol/L (22-30); Chloride 97 mmol/L (98-107); Glucose 150 mg/dl (70-99); Magnesium 2.4 mg/dl (1.6-2.3); Potassium 5.2 mmol/L (3.5-5.1); Sodium 132 mmol/L (135-145); Total Bilirubin 2.2 mg/dl (0.2-1.3); Total Protein 5.7 g/dl (6.3-8.2)
[2024-10-22 11:59] LABS: Glucose - Point of Care 60 mg/dl (70-99)
[2024-10-22] MEDS: DEXTROSE 50% SYRINGE 12.5 GRAMS IV (12:01)
--- NOTE | 2024-10-22 12:28 | CON.CAR ---
Addendum entered and electronically signed by Michel Machado MD 10/22/24 16:42:
Patient seen and examined in collaboration with COMPENSATION VICE PRESIDENT; agree with below.
-79-year-old male with chronic HFrEF (EF 10-15%) paroxysmal atrial fibrillation (on Eliquis), suspected amyloidosis, chronic LBBB, status-post BiV ICD, CML, bladder cancer, COPD, and peripheral arterial disease status-post left BKA presenting with
lethargy/weakness. Cardiology consulted for abnormal cardiac troponin and wide-complex tachycardia. Patient is found to be hypothermic, have CLAUDIA with a creatinine 3.6, metabolic acidosis with a bicarbonate of 10, and septic with a lactate of 8.8.
LFTs are also abnormal with an AST of 3506 and ALT of 1512.
-Wide-complex tachycardia; ICD interrogated and patient has atrial fibrillation with RVR, not VT.
-Amiodarone bolus in the ER; will be placed on an amiodarone drip.
-monitoring analyst in ICU.
-Management of sepsis as per primary hospitalist team.
-Patient is critically ill secondary to sepsis and underlying comorbidities.
-Recommend Nephrology consultation.
-Troponin elevation most likely acute nonischemic myocardial injury in the setting of sepsis, severe CHF, and acute renal failure; previous cardiac catheterization revealed nonobstructive CAD.
-Supportive care; will follow.
Original Note:
Consultation
Consultation Request
Date/Time Consultation Requested: 10/22/24 1226
Date/Time Consultation Performed: 10/22/24 1300
Requesting Provider: Dr. Carrasquillo
Performing Provider: Mary KOWALSKI for Dr. Machado
Reason for Consultation: arrhythmia
Medical History
-
Chief Complaint: pain (abdominal, back), weakness, nausea
History of Present Illness:
79 y/o male (cardiology patient of Dr. Pascal) with PAF on Eliquis (hx PVI 2019), HFrEF EF 10-15% with suspicion for amyloidosis, Bi-V ICD in place, LBBB, hypertension, non-obstructive CAD, CML, bladder cancer, COPD, dyslipidemia, PAD with LBKA
who is here for abdominal pain and back pain. There has also been weakness and vomiting. We are consulted since for arrhythmia and abnormal troponin. He is seen to have CLAUDIA, abnormal LFT's, leukocytosis, sodium 132, potassium 5.2, CO2- 10. Temp is
96.3, trop 1.5. AFIB with RVR is the presenting rhythm- which I discussed with our device nurse based on interrogation done in ER. Also confirmed on EKG here. He is hypotensive and requiring Levophed and fluids in ER. He is acutely ill and is being
admitted to ICU. 2 of his children and patient's girlfriend at bedside.
Past Medical History
Past Medical History: Arrhythmias, CAD, Cancer, CHF, COPD, HTN, Hypercholesterolemia and Other (PAD)
Social History
Tobacco: Former Smoker
Family History
Family History: Reviewed & Not Pertinent
Allergies / Home Medications
Allergy/AdvReac Type Severity Reaction Status Date / Time
clopidogrel [From Plavix] Allergy Rash Verified 09/09/24 15:01
niacin Allergy Rash Verified 09/09/24 15:01
�Medication �Instructions �Recorded �Confirmed �Type
tamsulosin 0.4 mg capsule 0.4 mg PO DAILY Urinary issue 05/03/20 10/22/24 History
pantoprazole 40 mg tablet,delayed 40 mg PO DAILY Gastrointestinal 08/30/20 10/22/24 History
release issue
aspirin 81 mg chewable tablet 81 mg PO DAILY Blood clot 01/19/21 10/22/24 History
prevention/tx
rosuvastatin 20 mg tablet 20 mg PO DAILY High cholesterol 01/19/21 10/22/24 History
docusate sodium 100 mg capsule 100 mg PO HSPRN PRN constipation 04/27/21 10/22/24 History
(Colace)
empagliflozin 10 mg tablet 10 mg PO HS 02/10/24 10/22/24 History
(Jardiance)
eszopiclone 3 mg tablet 3 mg PO HS 02/10/24 10/22/24 History
furosemide 40 mg tablet 40 mg PO DAILY 02/10/24 10/22/24 History
megestrol 20 mg tablet 20 mg PO BID 02/10/24 10/22/24 History
cholecalciferol (vitamin D3) 50 50 mcg PO DAILY 03/06/24 10/22/24 History
mcg (2,000 unit) tablet (Vitamin
D3)
gabapentin 800 mg tablet 800 mg PO DAILYPRN PRN phantom pain 03/06/24 10/22/24 History
metoprolol succinate 25 mg 25 mg PO BID 03/06/24 10/22/24 History
tablet,extended release 24 hr
oxycodone 5 mg tablet 5 mg PO Q4HPRN PRN severe pain 03/06/24 10/22/24 History
apixaban 5 mg tablet (Eliquis) 5 mg PO BID 08/06/24 10/22/24 History
Review of Systems
-
History Source: Patient, Family and Other (chart)
Abdomen/GI: Abdominal Pain, Nausea and Vomiting
Musculoskeletal: Other (back pain)
Neurological: Weakness
Physical Exam
Vital Signs
Temp Pulse Resp BP Pulse Ox
96.3 F L 112 23 94/68 74
10/22/24 11:26 10/22/24 12:15 10/22/24 12:15 10/22/24 12:15 10/22/24 12:15
Lab Results
10/22/24 11:17
10/22/24 11:17
Troponin I 1.540 ng/ml H* 10/22/24 11:17
Physical Exam
General: No Apparent Distress and Other (underweight)
Respiratory: Non Labored Respirations
Cardiac: Irregular Rhythm
Musculoskeletal: No Edema
Neuro: Awake and Alert (lathargic)
Psych: Calm
Impression / Plan
-
Shock, likely septic:
-this diagnosis is threat to life
-source unknown, cultures pending
-abx ordered
-on bicarb
-on Levophed, which requires intensive monitoring
NICM EF 10-15%:
-patient with suspected amyloid
-Bi-V ICD in place- interrogated and shows AFIB 120-130 BPM, AFIB burden 0.2%, 247 high vent rates AFIB with RVR, Apaced <1%, BI-V paced <4% per device nurse in office
-on BB, Jardiance as OP
HFrEF: chronic
-does not appear volume overloaded
Abnormal troponin:
-suspect acute, non-ischemic myocardial injury in setting of shock
-no CP
-can trend
AFIB with RVR:
-agree with IV amiodarone, which requires intensive monitoring
-on Eliquis for OAC
CLAUDIA:
-in setting of shock
-nephrology consulted
Abnormal LFT's:
-in setting of shock
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
LBBB
COPD
Bladder CA
Data Reviewed
-
EKG: Tracing Personally Visualized and interpreted (AFIB with RVR, patient with ventricular pacer)
Radiology: Report Reviewed by me (CXR: Small right pleural effusion without significant change. Pulmonary vascularity borderline prominent, stable.)
Medical Tests (Nuc Med, Echo etc): Report Reviewed by me (Echo 07/03/24: Small left ventricular cavity. Severely reduced LV systolic function. LVEF 10-15%. Global hypokinesis with relative apical sparing. Moderate concentric LV hypertrophy
with speckled appearance. Stage III diastolic dysfunction. Biatrial enlargement. )
Labs: Labs Reviewed by me
[2024-10-22 12:31] LABS: ALT (SGPT) 1512 U/L (0-50)
[2024-10-22 12:33] LABS: Glucose - Point of Care 81 mg/dl (70-99)
[2024-10-22 12:40] LABS: Estimated Creatinine Clearance 11 ml/min; eGFR 16.56
[2024-10-22 12:41] LABS: AST (SGOT) 3506 U/L (17-59)
--- NOTE | 2024-10-22 13:02 | HPS.HSE ---
Addendum entered and electronically signed by Neil Mina MD 10/22/24 13:18:
Empiric Abx started due to concern for septic shock.
Nephro consulted. Repeat echo not needed.
Addendum entered and electronically signed by Neil Mina MD 10/22/24 13:06:
D5 Bicarb drip started. Levophed started.
Original Note:
Family Physician
-
Family Physician: Abdelrahman Edwards
Chief Complaint
-
Allergies
Allergy/AdvReac Type Severity Reaction Status Date / Time
clopidogrel [From Plavix] Allergy Rash Verified 09/09/24 15:01
niacin Allergy Rash Verified 09/09/24 15:01
Home Medications
tamsulosin 0.4 mg capsule 0.4 mg PO DAILY Urinary issue 05/03/20
pantoprazole 40 mg tablet,delayed release 40 mg PO DAILY Gastrointestinal issue 08/30/20
aspirin 81 mg chewable tablet 81 mg PO DAILY Blood clot prevention/tx 01/19/21
rosuvastatin 20 mg tablet 20 mg PO DAILY High cholesterol 01/19/21
docusate sodium 100 mg capsule (Colace) 100 mg PO HSPRN PRN constipation 04/27/21
empagliflozin 10 mg tablet (Jardiance) 10 mg PO HS 02/10/24
eszopiclone 3 mg tablet 3 mg PO HS 02/10/24
furosemide 40 mg tablet 40 mg PO DAILY 02/10/24
megestrol 20 mg tablet 20 mg PO BID 02/10/24
cholecalciferol (vitamin D3) 50 mcg (2,000 unit) tablet (Vitamin D3) 50 mcg PO DAILY 03/06/24
gabapentin 800 mg tablet 800 mg PO DAILYPRN PRN phantom pain 03/06/24
metoprolol succinate 25 mg tablet,extended release 24 hr 25 mg PO BID 03/06/24
oxycodone 5 mg tablet 5 mg PO Q4HPRN PRN severe pain 03/06/24
apixaban 5 mg tablet (Eliquis) 5 mg PO BID 08/06/24
History of Present Illness
79-year-old male past medical history of nonischemic cardiomyopathy/amyloid cardiomyopathy, HFrEF with EF of 10 to 15% with ICD, left bundle branch block, paroxysmal atrial fibrillation, peripheral arterial disease with history of stent and left
BKA, mild aortic stenosis, COPD, presenting with 2 to 3 days of ongoing vomiting and worsening lower back pain.
Patient had a fall 3 weeks ago and had a coccyx fracture. He has chronic lower back pain but he has been having worsening lower back pain in the lumbar region for the past 2 to 3 days. He was also complaining of some discomfort in his abdomen and
fluid retention there. No chest pain or shortness of breath. His girlfriend notes that he has had a productive cough and he has not been compliant with his cardiac medications including Lasix. No fever. He has been constipated due to lack of
eating. He has lost a lot of weight.
He is a former smoker. He drinks 1 glass of alcohol every day.
Medical History
Past Medical History
Past Medical History: Reports Other (nonischemic cardiomyopathy/amyloid cardiomyopathy, HFrEF with EF of 10 to 15% with ICD, left bundle branch block, paroxysmal atrial fibrillation, peripheral arterial disease with history of stent and left BKA,
mild aortic stenosis, COPD,)
Past Surgical History: Reports Other ( Bowel resection, Cardiac (Stents, Ablation, carotid artery surgery,), Orthopedic (Bilateral knee replacements, right ankle replacement and Left shoulder replacement) and Other (Femoral bypass right leg, hernia
repair. Left leg stent and angioplasty))
Social History
Tobacco: Former Smoker
Alcohol: None
Drug: None
Family History
Family History: Not pertinent
Allergies / Home Medications
Allergies reflects when Allergies were last updated in [facility].
Home Medications with original date entered in [facility]
Allergy/Medication List:
Allergies
Allergy/AdvReac Type Severity Reaction Status Date / Time
clopidogrel [From Plavix] Allergy Rash Verified 09/09/24 15:01
niacin Allergy Rash Verified 09/09/24 15:01
Home Medications
tamsulosin 0.4 mg capsule 0.4 mg PO DAILY Urinary issue 05/03/20
pantoprazole 40 mg tablet,delayed release 40 mg PO DAILY Gastrointestinal issue 08/30/20
aspirin 81 mg chewable tablet 81 mg PO DAILY Blood clot prevention/tx 01/19/21
rosuvastatin 20 mg tablet 20 mg PO DAILY High cholesterol 01/19/21
docusate sodium 100 mg capsule (Colace) 100 mg PO HSPRN PRN constipation 04/27/21
empagliflozin 10 mg tablet (Jardiance) 10 mg PO HS 02/10/24
eszopiclone 3 mg tablet 3 mg PO HS 02/10/24
furosemide 40 mg tablet 40 mg PO DAILY 02/10/24
megestrol 20 mg tablet 20 mg PO BID 02/10/24
cholecalciferol (vitamin D3) 50 mcg (2,000 unit) tablet (Vitamin D3) 50 mcg PO DAILY 03/06/24
gabapentin 800 mg tablet 800 mg PO DAILYPRN PRN phantom pain 03/06/24
metoprolol succinate 25 mg tablet,extended release 24 hr 25 mg PO BID 03/06/24
oxycodone 5 mg tablet 5 mg PO Q4HPRN PRN severe pain 03/06/24
apixaban 5 mg tablet (Eliquis) 5 mg PO BID 08/06/24
Review of Systems
-
History Source: Patient
A 12 point ROS was completed and negative except as noted: Yes
Constitutional: Reports No Symptoms
EENT: Reports No Symptoms
Respiratory: Reports No Symptoms
Cardiac: Reports No Symptoms
Abdomen/GI: Reports See HPI
: Reports No Symptoms
Musculoskeletal: Reports No Symptoms and See HPI
Skin: Reports No Symptoms
Neurological: Reports No Symptoms
Endocrine: Reports No Symptoms
Hematologic/Lymphatic: Reports No Symptoms
Psych: Reports No Symptoms
Physical Exam
Vital Signs
Vital Signs
Temp Pulse Resp BP Pulse Ox
96.3 F L 121 29 84/72 74
10/22/24 11:26 10/22/24 12:30 10/22/24 12:30 10/22/24 12:30 10/22/24 12:15
Physical Exam
General: Well Developed, Well Nourished and No Apparent Distress
HEENT: NormoCephalic, Moist mucous membranes and Atraumatic
Respiratory: Clear
Cardiac: S1/S2 and Regular Rhythm; No Murmur or Rub
GI: Soft, Non Tender, Non Distended and Normal Bowel Sounds; No Organomegaly
Rectal: Deferred by Provider
Musculoskeletal: No Clubbing, No Cyanosis and No Edema
Skin: No Rash
Neuro: Nonfocal/grossly intact
Laboratory Results
-
10/22/24 11:17
10/22/24 11:17
Laboratory Results
Total Bilirubin 2.2 mg/dl (0.2-1.3) H 10/22/24 11:17
AST 3506 U/L (17-59) H* 10/22/24 11:17
ALT 1512 U/L (0-50) H* 10/22/24 11:17
Alkaline Phosphatase 159 U/L (38-126) H 10/22/24 11:17
Troponin I 1.540 ng/ml H* 10/22/24 11:17
Data Reviewed
-
Lab Data: Labs Reviewed by me
Old Records: Reviewed
Impression/Plan
-
IMPRESSION:
PLAN:
# Shock likely secondary to cardiogenic shock ( tachycardia, tachypnea, leukocytosis)
# Anion gap metabolic acidosis
-Check blood cultures
-ABG, lactate pending
-Bicarb drip
-Check CT abdomen pelvis when stable
# Intermittent ventricular tachycardia versus SVT
-EKG shows atrial fibrillation heart rate 122
-Amiodarone drip
# Severe acute on chronic lower back pain/vomiting
-Check CT abdomen pelvis when hemodynamically stable
-As needed Dilaudid for pain
-Continue gabapentin
# Nonischemic myocardial injury versus NSTEMI
-Troponin of 1.54
-Trend troponins
-Check echo
-Hold Eliquis and start heparin drip instead in case any procedures are necessary
-Cardiology consulted
# Acute kidney injury
# Hyperkalemia
-Monitor with bicarb drip
-Bladder scan protocol
# Transaminitis secondary to shock liver
-Continue to monitor
# Hypoglycemia secondary to decreased p.o. intake
-D50 given
-Accu-Cheks
History of nonischemic cardiomyopathy/amyloid cardiomyopathy with biventricular ICD
Chronic HFrEF
-EF of 10 to 15%
-Hold Lasix
-Hold Jardiance
-Hold metoprolol
Old left bundle branch block
Paroxysmal atrial fibrillation
-Hold Eliquis
Peripheral arterial disease status post stent, left BKA
-Continue aspirin
-Continue statin
Failure to thrive
-Continue megestrol
Mild aortic stenosis
COPD
Bladder cancer
-Hold tamsulosin
-Not on treatment
History of CML
-Not on treatment
GERD
-Continue Protonix
Former smoker
History of constipation
-Continue docusate
Full code
DVT prophylaxis�Heparin
N.p.o.
[2024-10-22] MEDS: LEVOPHED 250 IV (13:04)
[2024-10-22] MEDS: NSS 250 IV (13:04)
[2024-10-22] MEDS: SODIUM BICARBONATE 1150 MEQ IV (13:08)
--- NOTE | 2024-10-22 13:29 | W.CON.NEPH ---
Addendum entered and electronically signed by Leo Calvin DO 10/22/24 14:15:
Critical care time 45 minutes
Original Note:
Consultation
-
Date/Time Consultation Requested: 10/22/2024 130 PM
Date/Time Consultation Performed: 10/22/2024 1:30 PM
Requesting Provider: Dr. Mina
Performing Provider: Dr. Calvin
Reason for Consultation: Acute kidney injury/gap metabolic acidosis/metabolic alkalosis
Medical History
-
Chief Complaint: Acute kidney injury/gap metabolic acidosis
History of Present Illness:
79-year-old male past medical history of nonischemic cardiomyopathy/amyloid cardiomyopathy, HFrEF with EF of 10 to 15% with ICD (maintained on Lasix 40 mg daily), left bundle branch block, paroxysmal atrial fibrillation (chronically anticoagulated
on Eliquis), peripheral arterial disease with history of stent and left BKA (on ASA and statin therapy), mild aortic stenosis, COPD, presenting with 2 to 3 days of ongoing vomiting and worsening lower back pain.
Patient had a fall 3 weeks ago and had a coccyx fracture. He has chronic lower back pain but he has been having worsening lower back pain in the lumbar region for the past 2 to 3 days. He was also complaining of some discomfort in his abdomen and
fluid retention there. No chest pain or shortness of breath. His girlfriend notes that he has had a productive cough and he has not been compliant with his cardiac medications including Lasix. No fever. He has been constipated due to lack of
eating. He has lost a lot of weight. On presentation to the hospital he was hemodynamically unstable and in acute renal failure with profound metabolic acidosis nephrology was asked to see this critically ill patient.
Past Medical History
(nonischemic cardiomyopathy/amyloid cardiomyopathy, HFrEF with EF of 10 to 15% with ICD, left bundle branch block, paroxysmal atrial fibrillation, peripheral arterial disease with history of stent and left BKA, mild aortic stenosis, COPD,)
Past Surgical History: Reports Other ( Bowel resection, Cardiac (Stents, Ablation, carotid artery surgery,), Orthopedic (Bilateral knee replacements, right ankle replacement and Left shoulder replacement) and Other (Femoral bypass right leg, hernia
repair. Left leg stent and angioplasty)), bladder CA
Social History
Tobacco: Former Smoker
Alcohol: Daily
Family History
Family History: Not Pertinent
Allergies / Home Medications
Allergy/AdvReac Type Severity Reaction Status Date / Time
clopidogrel [From Plavix] Allergy Rash Verified 09/09/24 15:01
niacin Allergy Rash Verified 09/09/24 15:01
�Medication �Instructions �Recorded �Confirmed �Type
tamsulosin 0.4 mg capsule 0.4 mg PO DAILY Urinary issue 05/03/20 10/22/24 History
pantoprazole 40 mg tablet,delayed 40 mg PO DAILY Gastrointestinal 08/30/20 10/22/24 History
release issue
aspirin 81 mg chewable tablet 81 mg PO DAILY Blood clot 01/19/21 10/22/24 History
prevention/tx
rosuvastatin 20 mg tablet 20 mg PO DAILY High cholesterol 01/19/21 10/22/24 History
docusate sodium 100 mg capsule 100 mg PO HSPRN PRN constipation 04/27/21 10/22/24 History
(Colace)
empagliflozin 10 mg tablet 10 mg PO HS 02/10/24 10/22/24 History
(Jardiance)
eszopiclone 3 mg tablet 3 mg PO HS 02/10/24 10/22/24 History
furosemide 40 mg tablet 40 mg PO DAILY 02/10/24 10/22/24 History
megestrol 20 mg tablet 20 mg PO BID 02/10/24 10/22/24 History
cholecalciferol (vitamin D3) 50 50 mcg PO DAILY 03/06/24 10/22/24 History
mcg (2,000 unit) tablet (Vitamin
D3)
gabapentin 800 mg tablet 800 mg PO DAILYPRN PRN phantom pain 03/06/24 10/22/24 History
metoprolol succinate 25 mg 25 mg PO BID 03/06/24 10/22/24 History
tablet,extended release 24 hr
oxycodone 5 mg tablet 5 mg PO Q4HPRN PRN severe pain 03/06/24 10/22/24 History
apixaban 5 mg tablet (Eliquis) 5 mg PO BID 08/06/24 10/22/24 History
Review of Systems
-
Unable to obtain full review of systems at this time due to: Acuity
History Source: Patient
All other systems: Negative unless noted
Constitutional: Weight Loss and Fatigue
EENT: No Symptoms
Respiratory: Other (some baseline sob)
Cardiac: No Symptoms
Abdomen/GI: Abdominal Pain and Vomiting
: No Symptoms
Musculoskeletal: Other (Lower back pain)
Physical Exam
Vital Signs
Vital Signs
Temp Pulse Resp BP Pulse Ox
96.3 F L 121 29 84/72 74
10/22/24 11:26 10/22/24 12:30 10/22/24 12:30 10/22/24 12:30 10/22/24 12:15
Lab Results
10/22/24 11:17
10/22/24 11:17
WBC 11.7 10^3/uL (4.8-10.8) H 10/22/24 11:17
RBC 4.61 10^6/uL (4.70-6.10) L 10/22/24 11:17
Hgb 14.8 g/dL (13.0-18.0) 10/22/24 11:17
Hct 44.8 % (39.0-52.0) 10/22/24 11:17
Plt Count 158 10^3/uL (130-400) 10/22/24 11:17
Sodium 132 mmol/L (135-145) L 10/22/24 11:17
Potassium 5.2 mmol/L (3.5-5.1) H 10/22/24 11:17
Chloride 97 mmol/L (98-107) L 10/22/24 11:17
Carbon Dioxide 10 mmol/L (22-30) L* 10/22/24 11:17
BUN 64 mg/dl (9-20) H 10/22/24 11:17
Creatinine 3.6 mg/dL (0.7-1.3) H 10/22/24 11:17
eGFR 16.56 10/22/24 11:17
Glucose 150 mg/dl (70-99) H 10/22/24 11:17
Calcium 7.7 mg/dl (8.4-10.2) L 10/22/24 11:17
Albumin 3.1 g/dl (3.5-5.0) L 10/22/24 11:17
Physical Exam
General: AOx3, chronically ill-appearing, cachectic
HEENT: PERRL, EOMI, Anicteric, Conjunctivae Clear, Ear/Nose Intact, Hearing Normal, Oropharynx Clear/Moist, Dentition Intact, Facial Symmetry, Neck Supple, Neck: Trachea Midline, No JVD and No Thyromegaly, no Bruits
Respiratory: Coarse to auscultation bilaterally with normal lung excursion
Cardiac: S1/S2 irregular
Breast: Deferred by me
Abdomen: Soft, Nondistended, Normal Bowel Sounds and No Hepatosplenomegaly, tender with deep palpation
Rectal: Deferred by Provider
Genito-urinary: No Costovertebral Tenderness
Extremities: No Clubbing, No Cyanosis and No Edema, left BKA
Skin: Scattered lower extremity skin lesion
Neuro: Nonfocal/Grossly Intact, CN II-XII (Intact) and Strength (Musculoskeletal exam 5 out of 5 both upper and lower extremities)
Hematologic/Lymphatic: No Cervical Lymphadenopathy, No Submandibular Lymphadenopathy and No Supraclavicular Lymphadenopathy
Psych: Mood/afflect pleasant, Insight/judgement good and Appropriate
Vascular: plus 1 pedal and radial pulses
Data Reviewed
-
Radiology: Image Personally Visualized and interpreted (Chest x-ray personally reviewed showed interstitial edematous changes small effusion)
Labs: Labs Reviewed by me (TR CBC)
Old Records: Reviewed (Reviewed old lab work in EMR from date 08/07/2024 creatinine 0.6)
Assessment/Plan
-
Impression:
Hemodynamic collapse (Shock): cardiogenic vs septic)
CLAUDIA
Gap metabolic acidosis (25)
Non Ischemic ON LINE CSR EF 10-15%/defibrillator
Paroxysmal AFIB
BPH
History of intermittent ventricular tachycardia/SVT
Vomiting
Lower back
Positive troponin
Transaminitis (likely due to shock liver)
History of bladder cancer
History of CML
COPD
PAD with history of stent
Left below-knee amputation
Plan:
CLAUDIA:
-Likely due to underlying shock with hemodynamic instability (cardiogenic versus septic shock)
-No overt volume overload on physical exam
-For CT of abdomen and pelvis given abdominal pain and back pain to assess for possible underlying septic origin
-Maintain pressure support to keep MAP 65 or greater with alkaline IVFS and pressor support (currently on Levaphed)
-Volume status will be tenuous as patient has significant compromise of LV function in setting of ON LINE CSR
-Will provide alkaline IV fluids for metabolic acidosis and hyperkalemia (D5W given hypoglycemia) 100cc/hr
-Low threshold for Zamora given critical illness BPH and acute renal failure
-Check urinalysis fractional secretion of sodium
-Bladder scan for PVR with low threshold for zamora placment
-Dose all antibiotics for GFR less than 20 cc/min
-No acute dialysis requirement.....yet
-Patient critically ill with hemodynamic instability in the setting of acute renal failure with metabolic acidosiswith associated shock, requiring pressors and IV fluid
--- NOTE | 2024-10-22 13:37 | CON.INTV ---
Consultation
Consultation Request
Date/Time Consultation Requested: 10/22/2024
Date/Time Consultation Performed: 10/22/2024
Requesting Provider: Neil Mina
Performing Provider: Cassie Foster
Reason for Consultation: Hypotensionn, Shock
Medical History
-
Chief Complaint: Back pain, nausea, vomiting
History of Present Illness:
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
pain. As per caregiver at bedside, patient has had multiple falls in the past including history of coccyx fracture. Patient reports very poor p.o. intake over the last 3 to 4 days and has been having recurrent episodes of nausea and vomiting.
Patient denies any cough, fever, chills or trouble breathing. In the emergency room, patient noted to be hypoglycemic as well as acidotic with serum bicarb 10 on BMP. Patient received dextrose supplementation with improving blood sugar. Troponin
initially was somewhat elevated and pacemaker was interrogated which was suggestive of tachyarrhythmia intermittent V. tach versus SVT. Patient also noted to be hypotensive with systolic in 70s to 100s. He was given 500 mL fluid bolus in addition
to dextrose and was subsequently started on Levophed. Intellectual Property Lawyer consultation was requested for further management.
Past Medical History
(nonischemic cardiomyopathy/amyloid cardiomyopathy, HFrEF with EF of 10 to 15% with ICD, left bundle branch block, paroxysmal atrial fibrillation, peripheral arterial disease with history of stent and left BKA, mild aortic stenosis, COPD,)
Past Surgical History: Reports Other ( Bowel resection, Cardiac (Stents, Ablation, carotid artery surgery,), Orthopedic (Bilateral knee replacements, right ankle replacement and Left shoulder replacement) and Other (Femoral bypass right leg, hernia
repair. Left leg stent and angioplasty)), bladder CA
Family History
Family History: Reviewed & Not Pertinent
Allergies / Home Medications
Allergies
Allergy/AdvReac Type Severity Reaction Status Date / Time
clopidogrel [From Plavix] Allergy Rash Verified 09/09/24 15:01
niacin Allergy Rash Verified 09/09/24 15:01
Home Medications
�Medication �Instructions �Recorded �Confirmed �Last Taken �Type
tamsulosin 0.4 mg capsule 0.4 mg PO DAILY Urinary issue 05/03/20 10/22/24 08/03/24 History
pantoprazole 40 mg tablet,delayed 40 mg PO DAILY Gastrointestinal 08/30/20 10/22/24 08/03/24 History
release issue
aspirin 81 mg chewable tablet 81 mg PO DAILY Blood clot 01/19/21 10/22/24 08/05/24 History
prevention/tx
rosuvastatin 20 mg tablet 20 mg PO DAILY High cholesterol 01/19/21 10/22/24 08/03/24 History
docusate sodium 100 mg capsule 100 mg PO HSPRN PRN constipation 04/27/21 10/22/24 08/03/24 History
(Colace)
empagliflozin 10 mg tablet 10 mg PO HS 02/10/24 10/22/24 08/03/24 History
(Jardiance)
eszopiclone 3 mg tablet 3 mg PO HS 02/10/24 10/22/24 08/03/24 History
furosemide 40 mg tablet 40 mg PO DAILY 02/10/24 10/22/24 08/05/24 History
megestrol 20 mg tablet 20 mg PO BID 02/10/24 10/22/24 08/03/24 History
cholecalciferol (vitamin D3) 50 50 mcg PO DAILY 03/06/24 10/22/24 08/03/24 History
mcg (2,000 unit) tablet (Vitamin
D3)
gabapentin 800 mg tablet 800 mg PO DAILYPRN PRN phantom pain 03/06/24 10/22/24 08/06/24 History
metoprolol succinate 25 mg 25 mg PO BID 03/06/24 10/22/24 08/03/24 History
tablet,extended release 24 hr
oxycodone 5 mg tablet 5 mg PO Q4HPRN PRN severe pain 03/06/24 10/22/24 08/06/24 History
apixaban 5 mg tablet (Eliquis) 5 mg PO BID 08/06/24 10/22/24 08/06/24 History
Review of Systems
-
History Source: Patient and Family
Constitutional: Weight Loss
Respiratory: Trouble Breathing
Cardiac: Chest Pain (No chest pain) and Palpitations
Abdomen/GI: Abdominal Pain, Nausea and Vomiting
: Other (Decreased urine output over last few days)
Neuro: Other (Significant acute on chronic back pain)
Vitals / Labs / Diagnostic Testing
Vital Signs
Temp Pulse Resp BP Pulse Ox
96.3 F L 121 29 84/72 74
10/22/24 11:26 10/22/24 12:30 10/22/24 12:30 10/22/24 12:30 10/22/24 12:15
Lab Data
10/22/24 11:17
10/22/24 11:17
Diagnostic Testing:
Chest x-ray, 10/22, trace right pleural effusion otherwise unremarkable, not suggestive of pulmonary edema
VBG, pH 7.12 with a pCO2 of 41, bicarb of 13.3
Lactate, 8.8
AST, 3506
ALT, 1512
Bilirubin minimally elevated 2.2
CT chest 03/06/2024: Reviewed, show no evidence for pulmonary embolism. Finding consistent with congestive heart failure moderate right-sided and small left-sided pleural effusion. Multiple irregular airspace opacity/nodule within the right upper
lobe and also within the right middle lobe. No mediastinal lymph nodes. Compression deformities of T4 and T12.
ECHO 06/2024: Small left ventricular cavity. Severely reduced LV systolic function. LVEF 10-15%.
Global hypokinesis with relative apical sparing.
Moderate concentric LV hypertrophy with speckled appearance.
Stage III diastolic dysfunction.
Biatrial enlargement.
No significant valvular disease.
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
Cath 02/10/24: 1. Mildly elevated left heart filling pressures with moderate pulmonary hypertension
2. Mild aortic stenosis with mean gradient 7 mmHg. The calculated cardiac output was 4.0.
3. Stable mild CAD as described
4. Anterolateral hypokinesis with EF 37%
Physical Exam
-
Exam:
HEENT. Dry oral mucosa, bitemporal wasting
Chest. Good air entry bilaterally, no wheezing, no crackles, slightly decreased air entry in the right lower posterior base
Cardiovascular, S1, S2 normal, rhythm is irregular consistent with atrial fibrillation
Abdomen. Soft on exam without rigidity or rebound but does have diffuse tenderness
Extremities. No pedal edema, very dry skin
Neuro, patient is awake and alert, interactive
Assessment
-
#1. Shock, likely mixed with underlying severe cardiomyopathy and possibly sepsis.
-Patient also quite hypovolemic from 4 days of significantly reduced p.o. intake as well as nausea and vomiting
-Cautious hydration, total 1 L LR given in the emergency room
-pH 7.12, lactate more than 8, stat sodium bicarbonate push 1 ampoule followed by D5 with bicarb infusion
-Levophed to keep MAP above 65
-Blood cultures, urinalysis and cultures, broad-spectrum antibiotics
-Admit to critical care unit
-Patient at risk of further deterioration and requiring intubation and mechanical ventilation. Concern discussed with the patient and son at bedside.
#2. A-fib, RVR with hemodynamic instability
-AICD in place
-Continue amiodarone infusion
-Telemetry monitoring, cardiology consult
-Patient is anticoagulated with Eliquis
#3. Nonischemic cardiomyopathy with ejection fraction 10 to 15%, suspect amyloidosis as per cardiology records.
-Status post biventricular ICD, interrogation shows atrial fibrillation with RVR.
-Patient appears hypovolemic without signs of volume overload, very dry mucosa, no pedal edema
-Withhold all antihypertensive medications, cautious volume replacement
-With severely decreased EF, patient at risk of pulmonary edema with volume resuscitation and at risk of requiring intubation and mechanical ventilation
#4. Abnormal LFTs
-Suspect shock liver in the setting of hypotension
-CT abdomen pelvis to evaluate for any source of intra-abdominal infection
#5. Small right-sided pleural effusion
-Appears to be chronic, previous x-rays also show similar effusion (s/p thoracentesis in February/2024, suspect he has some degree of trapped lung leading to chronic small pleural effusion)
-Continue to monitor for now
Other medical comorbidities:
-Peripheral vascular disease status post left BKA and prior femorofemoral bypass
-COPD
-History of bladder cancer
-History of CML
-Pulmonary nodule on prior CT scan, need ongoing surveillance and outpatient follow-up with pulmonary clinic
CODE STATUS: Full currently. Patient's son at bedside is planning to discuss with other family members regarding goals of care.
-Prognosis is poor, patient is very cachectic with failure to thrive and now with critical illness.
Critical Care time 60 mins -- The patient is admitted for acute critical illness for the treatment of vital organ failure and/or prevention of further life-threatening conditions. Total care includes time spent in review of history, physical exam,
medications, hemodynamic/ventilator parameters, laboratory data, imaging and discussion with house staff, pharmacy, respiratory therapy, imaging aide, and nursing.
[2024-10-22] MEDS: VANCOCIN 200 IV (13:43)
[2024-10-22 13:48] LABS: Lactic Acid 8.8 mmol/L (0.7-2.0)
[2024-10-22 14:07] LABS: Venous Blood Gas B.E. -15.5 mmol/L (-4 to +4); Venous Blood Gas HCO3 13.3 mmol/L (22-27); Venous Blood Gas O2 Sat % 73.9 %; Venous Blood Gas pCO2 41 mmHg (35-48); Venous Blood Gas pO2 55 mmHg (30-50)
[2024-10-22 14:08] LABS: Venous Blood Gas pH 7.12 (7.32-7.43)
--- NOTE | 2024-10-22 14:26 | PHA.VAN.IN ---
Assessment
- Assessment
Renal Function: Appears elevated from baseline
Maximum Temperature: 96.3
Minimum Temperature: 96.3
Concomitant Antimicrobials: Pip/Tazo 2.25gm Q6H
Plan
- Plan
Initial / Loading Dose: 1000mg 10/22
Maintenance Regimen: Dose by level
Monitoring: Random on 10/23 @0600
Pharmacokinetics Vancomycin I
- -
Patient Age: 79
Patient Sex: Male
Vancomycin Day #: 1
Indication: GI
Requesting Provider: Dr. Mina
Pertinent Antimicrobial Allergies:
NONE
Height / Weight:
Height 5 ft 8 in
Actual Weight 45.5 kg
Pertinent Past Medical History: COPD, Chronic HFrEF
- Vital Signs / Lab Results
Temp Pulse Resp BP Pulse Ox
96.3 F L 121 29 84/72 74
10/22/24 11:26 10/22/24 12:30 10/22/24 12:30 10/22/24 12:30 10/22/24 12:15
Lab Results - Hematology
10/22/24
11:17
WBC 11.7 H
Lab Results - Chemistry
10/22/24
11:17
BUN 64 H
Creatinine 3.6 H
Estimated Creat Clear 11
Albumin 3.1 L
10/22/24
13:14
Lactic Acid 8.8 H*
[2024-10-22 14:48] LABS: NT-proBNP > 27000 pg/ml
[2024-10-22] MEDS: SODIUM BICARBONATE 50 MEQ IV (15:14)
[2024-10-22] MEDS: ZOSYN 50 IV ×2 (15:21→22:10)
--- NOTE | 2024-10-22 16:19 | CON.GI ---
Addendum entered and electronically signed by Rishi Grajeda MD 10/22/24 18:07:
I saw and examined the patient.
The SLAG PRODUCTION WORKER or PA's note was reviewed and I agree with the note.
Comment: 79yo male hx low EF ICD and amyloid cardiomyopathy presents with n/v, back pain, and abdominal distention. Had recent fall 3 weeks ago and coccyx fracture. Has been taking 600mg ibuprofen last 3 days. Found to be hypotensive on admission
requiring pressors due to cardiogenic shock vs septic shock. LFTs suggestive of shock liver. CT abd/pelvis without contrast showed large RLL consolidation and moderate R pleural effusion as well as large volume fluid/material in stomach extending
into distal esophagus, cannot exclude partial gastric outlet obstruction. Pt had EGD in 2017 for food impaction and esopahgitis. F/U EGD showed resolution
REC:
Place NGT to decompress stomach with low intermittent suction
Possible NSAID ulcer causing partial GOO. Increase protonix to IV BID. Could also be ileus.
Monitor NGT output and d/c when GOO resolved. Alternatively consider contrast UGI/SBFT if not resolving
Support BP and trend LFTs for f/u of shock liver
Original Note:
Consultation
-
Date/Time Consultation Requested: 10/22/24 1600
Date/Time Consultation Performed: 10/22/24 1620
Requesting Provider: Cristian Matthews MD
Performing Provider: MEGHANA Lopez, Rishi Grajeda MD
Reason for Consultation: partial gastric outlet obstruction
Medical History
Chief Complaint / HPI
Chief Complaint: nausea, vomiting
History of Present Illness:
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
and left BKA, bowel resection, hernia repair with onset of vomiting and back pain. In review with family patient with decline over last few months with wt loss and recent fall with Coccyx fracture. Pt did try megace without improvement He also
complaints of nausea with vomiting small amount of bile and mucous with abdominal distention with inability to eat for several days. On admission noted with marked hypotension requriing pressors with BP as low as 69/58. CT abd/pelvis with
limited study without IV contrast was completed with concern for limited imaging but some filling with air and fluid into distal thoracic esophagus with concern for gastric outlet obstruction, atelectasis vs PNA, at least moderate pleural effusion,
no free air, CM and enlarged prostate. Labs on admission notable for WBC 11.7, hbg 14.8, lactate 8.8, Na 132, k 5,2, Cl 97, Co2 10, BUN 64, creat 3.6, bili 2.2, AST 3506, ALT 1512, alk phos 159 trop 1.54, albumin 3.1.
Pt also admits to chronic narcotics but did add Ibuprofen daily for several days prior to admission for worsening back pain and GI symptoms as above. He denies dysphagia, hematemesis, or rectal bleeding. Last EGD 2017 with grade C esophagitis
and had follow up 2 months later with improvement. He also completed colonoscopy with diverticulosis and hemorrhoids.
Past Medical History
Past Medical History: Arrhythmias (left BBB, PAF), Cancer (squamous cell with removal), CHF (MTrIS90-30% with ICD), COPD, Valvular Disease (mild ) and Other (non ischemic CM, amyloid cardiomyopathy, PAD, stent and left BKA)
Past Surgical History: Bowel Resection, Cardiac (ICD), Orthopedic (b/lTKR. ankle replacement, left shoulder replacement) and Other (right fem bypass, hernia repair, mohs surgery )
Social History
Tobacco: Former Smoker (2013 last use )
Alcohol: Occasional
Drug: None
Personal: Other (significant other )
Family History
Family History: Other (no family hx colon Ca or polyps)
Allergies / Home Medications
Allergy/AdvReac Type Severity Reaction Status Date / Time
clopidogrel [From Plavix] Allergy Rash Verified 09/09/24 15:01
niacin Allergy Rash Verified 09/09/24 15:01
�Medication �Instructions �Recorded
tamsulosin 0.4 mg capsule 0.4 mg PO DAILY Urinary issue 05/03/20
pantoprazole 40 mg tablet,delayed 40 mg PO DAILY Gastrointestinal 08/30/20
release issue
aspirin 81 mg chewable tablet 81 mg PO DAILY Blood clot 01/19/21
prevention/tx
rosuvastatin 20 mg tablet 20 mg PO DAILY High cholesterol 01/19/21
docusate sodium 100 mg capsule 100 mg PO HSPRN PRN constipation 04/27/21
(Colace)
empagliflozin 10 mg tablet 10 mg PO HS 02/10/24
(Jardiance)
eszopiclone 3 mg tablet 3 mg PO HS 02/10/24
furosemide 40 mg tablet 40 mg PO DAILY 02/10/24
megestrol 20 mg tablet 20 mg PO BID 02/10/24
cholecalciferol (vitamin D3) 50 50 mcg PO DAILY 03/06/24
mcg (2,000 unit) tablet (Vitamin
D3)
gabapentin 800 mg tablet 800 mg PO DAILYPRN PRN phantom pain 03/06/24
metoprolol succinate 25 mg 25 mg PO BID 03/06/24
tablet,extended release 24 hr
oxycodone 5 mg tablet 5 mg PO Q4HPRN PRN severe pain 03/06/24
apixaban 5 mg tablet (Eliquis) 5 mg PO BID 08/06/24
Review of Systems
-
History Source: Patient and Family
Constitutional: Reports Weight Loss
EENT: Reports No Symptoms
Respiratory: Reports No Symptoms
Abdomen/GI: Reports Nausea and Vomiting
: Reports No Symptoms
Musculoskeletal: Reports Other (chronic back pain recently worse )
Neurological: Reports Weakness
Endocrine: Reports No Symptoms
Hematologic/Lymphatic: Reports No Symptoms
Vital Signs
Temp Pulse Resp BP Pulse Ox
94.3 F L 114 27 111/91 74
10/22/24 15:23 10/22/24 15:30 10/22/24 15:30 10/22/24 15:30 10/22/24 12:15
Physical Exam
Exam
General: Other (thin appearing )
HEENT: Normocephalic and Anicteric
Respiratory: Clear
Cardiac: Regular Rhythm
GI: Soft, Tender (mild ) and Distended (minimal)
Musculoskeletal: No Clubbing and No Cyanosis
Skin: Other (left BKA)
Neuro: Awake, Alert, AO x 3 and Other (hard of hearing )
Psych: Calm
Results
WBC Cancelled 10/22/24 14:39
Hgb Cancelled 10/22/24 14:39
Hct Cancelled 10/22/24 14:39
MCV Cancelled 10/22/24 14:39
Plt Count Cancelled 10/22/24 14:39
Absolute Neuts (auto) 10.7 10^3/uL (1.4-6.5) H 10/22/24 11:17
APTT Cancelled 10/22/24 14:39
Sodium 132 mmol/L (135-145) L 10/22/24 11:17
Potassium 5.2 mmol/L (3.5-5.1) H 10/22/24 11:17
Chloride 97 mmol/L (98-107) L 10/22/24 11:17
Carbon Dioxide 10 mmol/L (22-30) L* 10/22/24 11:17
BUN 64 mg/dl (9-20) H 10/22/24 11:17
Creatinine 3.6 mg/dL (0.7-1.3) H 10/22/24 11:17
Calcium 7.7 mg/dl (8.4-10.2) L 10/22/24 11:17
Total Bilirubin 2.2 mg/dl (0.2-1.3) H 10/22/24 11:17
AST 3506 U/L (17-59) H* 10/22/24 11:17
ALT 1512 U/L (0-50) H* 10/22/24 11:17
Alkaline Phosphatase 159 U/L (38-126) H 10/22/24 11:17
Diagnostic Image Results:
10/22 CT Abd/pelvis Wo Iv Cont
MARKEDLY LIMITED EVALUATION as a result of numerous factors, as detailed above.
Large dense right lower lobe consolidation with minimal air bronchograms (atelectasis/pneumonia versus mass) and at least moderate right pleural effusion.
Some filled with air and fluid extending into the distal thoracic esophagus. Cannot exclude partial gastric outlet obstruction.
No intestinal obstruction or free air.
Enlarged prostate gland.
Cardiomegaly.
Prior GI Procedures:
EGD: [facility] 10/2016 - Normal hypopharynx.
- Normal esophagus. Much improved. Biopsied.
- Gastritis. Biopsied.
- Normal examined duodenum.
EGD [facility] 08/2016 - Food at the gastroesophageal junction. Removal was
successful.
- LA Grade C esophagitis. Biopsied.
- Normal stomach.
- Normal examined duodenum.
Colonoscopy: 11/2016- [facility] - Diverticulosis in the sigmoid colon and in the
descending colon.
- Non-bleeding internal hemorrhoids.
- The examination was otherwise normal.
- No specimens collected.
Assessment / Plan
-
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
and left BKA, bowel resection, hernia repair with onset of vomiting and back pain. In review with family patient with decline over last few months with wt loss and recent fall with Coccyx fracture. Pt did try megace without improvement He also
complaints of nausea with vomiting small amount of bile and mucous with abdominal distention. On admission noted with marked hypotension with BP as low as 69/58. CT abd/pelvis with limited study without IV contrast was completed with concern
for limited imaging but some filling with air and fluid into distal thoracic esophagus with concern for gastric outlet obstruction, atelectasis vs PNA, at least moderate pleural effusion, no free air, CM and enlarged prostate. Labs on admission
notable for WBC 11.7, hbg 14.8, lactate 8.8, Na 132, k 5,2, Cl 97, Co2 10, BUN 64, creat 3.6, bili 2.2, AST 3506, ALT 1512, alk phos 159 trop 1.54, albumin 3.1.
-concern for shock on admission - cardiac vs sepsis requiring pressors
-nausea/vomiting small volumes on admission with CT concern for partial gastric outlet obstruction
-hypotension with marked elevated LFT's concern for shock liver
-afib with RVR on Eliquis prior to admission
-recent fall with coccyx fx
-CLAUDIA on admission
-leukocytosis
-metabolic acidosis
-recent NSAID use
-recent wt loss on megace
other med problems:
-HFrEF EF 10-15 % with PAD
-squamous cell with mohs surgery
-COPD
-mild
-non ischemic CM
-chronic pain
-PAD with prior bypass, LE stent, angioplasty, BKA
PLAN:
Etiology of shock on admission related to cardiac issue vs sepsis vs other
CT with concern for partial gastric outlet obstruction
will add NGT for decompression with continued nausea and small volumes of vomiting
repeat X ray in AM
change PPI to IV BID with recent NSAID use
NSAID avoidance
cont abx
t/c UGI series after decompression
trend LFT's likely shock liver in setting of marked hypotension on admission
cont fluid management per renal with CLAUDIA on admission
maintain adequate perfusion- pressors as needed
-
-
Thank you for consultation and allowing me to participate in the patient's care. Please call the manager animation GI physician during the after hours with any questions or concerns.
[2024-10-22] MEDS: DILAUDID 0.5 MG IV (17:05)
--- NOTE | 2024-10-22 18:18 | PTCARENOTE ---
Pt drowsy but responds to verbal stimuli - is oriented. Remains on levophed at 8mcg/min. Amio infusion at 0.5 mg/min. Heart rate 100 - V paced. Has not voided. NGT tube placed in R nare at 55cm angela and put to low/intermittent suction - dark
brown/black output. Family at bedside and updated on plan of care.
[2024-10-22 18:26] LABS: Glucose - Point of Care 154 mg/dl (70-99)
[2024-10-22 18:28] LABS: Lactic Acid 8.8 mmol/L (0.7-2.0)
[2024-10-22 20:57] LABS: Venous Blood Gas B.E. -18.6 mmol/L (-4 to +4); Venous Blood Gas HCO3 12.4 mmol/L (22-27); Venous Blood Gas O2 Sat % 56.5 %; Venous Blood Gas pCO2 48 mmHg (35-48); Venous Blood Gas pO2 48 mmHg (30-50)
[2024-10-22 20:59] LABS: Venous Blood Gas pH 7.02 (7.32-7.43)
[2024-10-22] MEDS: SODIUM BICARBONATE 100 MEQ IV (21:19)
[2024-10-22] MEDS: SUBLIMAZE 50 MCG IV ×4 (21:21→23:02)
[2024-10-22] MEDS: SUBLIMAZE 100 IV (21:22)
--- NOTE | 2024-10-22 21:24 | W.PN.ANESINT ---
Anesthesia Intubation Note
- Intubation Note
Intubation Note:
Diagnosis: acute respiratory failure
Blade: mac 4
Tube Size: 8.0
Depth: 22
Side Taped:
Drugs Used: propofol 60mg
Grade View: 1
EtCO2 Present: yes
Atraumatic: yes
Attempts: 1
Insertion Start and Stop Time:
SaO2 Pre: 90
SaO2 Post: 96
Glidescope Used: yes
Other Airway Adjustments:
Pre-Oxygenated: yes
Portable Chest X-Ray: ordered
RSI:
Suctioned:
Bilateral Breath Sounds Confirmed: yes
Vent Settings:
Settings per _x__Attending Physician
[2024-10-22] MEDS: NSS (PRESERVATIVE FREE) 10 ML IV (22:09)
[2024-10-22] MEDS: PROTONIX IV 40 MG IV (22:10)
[2024-10-22] MEDS: PRECEDEX 100 IV (22:34)
[2024-10-23] VITALS (77 sets, daily range): BP systolic 65–134; BP diastolic 49–99; BMI 15.4
[2024-10-23 00:05] LABS: Glucose - Point of Care 270 mg/dl (70-99)
[2024-10-23 00:44] LABS: Hematocrit 39.1 % (39.0-52.0); Hemoglobin 13.4 g/dL (13.0-18.0); Mean Corp Hgb Conc. 34.3 g/dL (33.0-37.0); Mean Corpuscular Hgb 32.1 pg (27.0-31.0); Mean Corpuscular Volume 93.8 fL (80.0-94.0); Mean Platelet Volume 10.4 fL (7.4-10.4); Platelet Count 108 10^3/uL (130-400); Red Blood Cell Count 4.17 10^6/uL (4.70-6.10); Red Cell Dist. Width 14.5 % (11.5-14.5); White Blood Cell Count 8.9 10^3/uL (4.8-10.8)
[2024-10-23] MEDS: NOVOLOG FLEXPEN-MODERATE RESISTANCE 5 UNITS SC (00:57)
[2024-10-23 00:58] LABS: Lactic Acid 14.2 mmol/L (0.7-2.0)
[2024-10-23 01:09] LABS: Glucose - Point of Care 278 mg/dl (70-99)
[2024-10-23 01:20] LABS: Blood Urea Nitrogen 66 mg/dl (9-20); Calcium 6.4 mg/dl (8.4-10.2); Carbon Dioxide 15 mmol/L (22-30); Chloride 91 mmol/L (98-107); Estimated Creatinine Clearance 10 ml/min; Glucose 257 mg/dl (70-99); Potassium 4.5 mmol/L (3.5-5.1); Sodium 132 mmol/L (135-145); eGFR 15.05
--- NOTE | 2024-10-23 01:21 | PTCARENOTE ---
Pt received at 19:00 on RA, Pt drowsy but arousable to to verbal stimuli, Ox3. Anxious when awake. C/O SOB approx 20:20, visibly dyspneic. Difficulty obtaining pulse ox. Placed on NRB. ABG ordered, unable to obtain, VBG ordered and sent. VBG =
7.02/48/48/12.4. Pt continued to appear in distress, decision made to intubate pt. Intubated with ##8 ETT @ 23cm on the R. Initial setting AC 30/450/100%/+5. Continues to be difficult to obtain pulse ox reading. Pt started on fentanyl and precedex,
titrated as ordered. V paced, 90s. Pulses present with doppler. Levophed titrated to maintain SBP > 90. B/L finger tips and R toes cyanotic w/ poor cap refill. Rectal temp 93.3 at start of shift, to tovar on--see flowsheet. NGT R nare @ 55, LIWS,
output coffee ground. No urine output noted at this time, bladder scanned for 102ml. 25 condom cath applied. Family at bedside and updated.
[2024-10-23] MEDS: CALCIUM CHLORIDE 10% SYRINGE 60 MG IV (01:56)
[2024-10-23] MEDS: LEVOPHED 250 IV ×4 (01:56→14:02)
[2024-10-23] MEDS: ZOSYN 50 IV ×2 (01:57→09:42)
[2024-10-23] MEDS: SUBLIMAZE 100 IV ×3 (01:57→16:56)
[2024-10-23 02:05] LABS: B.E. -8.3 mmol/L; PO2 293 mmHg (83-108); pH 7.52 (7.35-7.45)
[2024-10-23 02:09] LABS: O2 Therapy 100
[2024-10-23 02:10] LABS: HCO3 11.4 mmol/L (21-28); PCO2 14 mmHg (35-48)
[2024-10-23 03:07] LABS: Glucose - Point of Care 296 mg/dl (70-99)
--- NOTE | 2024-10-23 03:09 | W.PN.UPDATE ---
Update Note
Progress Note Update
10/22 2109 Patient having increased respiratory distress, placed on non-rebreather. In addition, becoming patient is diaphoretic and unable to speak. � Based on the increased acidosis and increase respiratory distress decision made to intubate.
Patient intubated uneventfully. �
[2024-10-23] MEDS: NOVOLIN R INSULIN INFUSION 100 IV (03:13)
[2024-10-23] MEDS: NOVOLIN R 5 UNITS IV (03:18)
[2024-10-23] MEDS: SODIUM BICARBONATE 1150 MEQ IV (03:35)
[2024-10-23 04:27] LABS: Glucose - Point of Care 253 mg/dl (70-99)
--- NOTE | 2024-10-23 05:24 | PTCARENOTE ---
MN Fingerstick = 270, pt previously hypoglycemic. Started on moderate SSI, repeat fingerstick at 03:00. Repeat fingerstick = 296 at 03:00. Glycemic protocol started.
[2024-10-23 05:30] LABS: Glucose - Point of Care 228 mg/dl (70-99)
[2024-10-23] MEDS: PRECEDEX 100 IV ×2 (06:01→09:01)
[2024-10-23 06:30] LABS: Glucose - Point of Care 181 mg/dl (70-99)
[2024-10-23 06:44] LABS: Hematocrit 39.1 % (39.0-52.0); Hemoglobin 13.9 g/dL (13.0-18.0); Mean Corp Hgb Conc. 35.5 g/dL (33.0-37.0); Mean Corpuscular Hgb 32.3 pg (27.0-31.0); Mean Corpuscular Volume 90.9 fL (80.0-94.0); Mean Platelet Volume 10.1 fL (7.4-10.4); Platelet Count 100 10^3/uL (130-400); Red Cell Dist. Width 14.2 % (11.5-14.5); White Blood Cell Count 9.7 10^3/uL (4.8-10.8)
[2024-10-23 07:00] LABS: Vancomycin Random 9.5 ug/ml
[2024-10-23 07:07] LABS: Albumin 2.6 g/dl (3.5-5.0); Alkaline Phosphatase 142 U/L (38-126); Blood Urea Nitrogen 70 mg/dl (9-20); Calcium 6.7 mg/dl (8.4-10.2); Carbon Dioxide 15 mmol/L (22-30); Chloride 90 mmol/L (98-107); Glucose 230 mg/dl (70-99); Potassium 4.3 mmol/L (3.5-5.1); Sodium 132 mmol/L (135-145); Total Bilirubin 2.9 mg/dl (0.2-1.3); Total Protein 4.7 g/dl (6.3-8.2)
[2024-10-23 07:08] LABS: Glucose - Point of Care 171 mg/dl (70-99)
[2024-10-23 07:11] LABS: Lactic Acid 12.5 mmol/L (0.7-2.0)
[2024-10-23 07:19] LABS: Estimated Creatinine Clearance 10 ml/min; eGFR 14.17
--- NOTE | 2024-10-23 07:30 | W.PN.HOSP.TC ---
Addendum entered and electronically signed by Su Gar MD, Resident 10/23/24 16:51:
Cachectic- Patient BMI is 15.4 and is apparent on physical exam.
Addendum entered and electronically signed by Morales Avelar MD 10/23/24 15:00:
Seen and examined by me independently in collaboration with the forensic medical examiner.
Lab data and imaging data reviewed.
Addendum as below :
Admission details on last night events noted.
Patient presented with acute onset of upper GI symptoms and poor oral intake. No prior history of peptic ulcer disease or gastric outlet obstruction but current imaging raises a concern for partial gastric outlet obstruction. NG tube is placed
then. He had output output 300 mL this morning with slight blood-tinged aspirate. GI following. Upper GI imaging once more stable.
Patient with clinical shock-cardiogenic versus septic. Continue with vasopressor support to maintain a MAP of 65. Follow urine output closely which is oliguric. Obtain an echocardiogram. Discussed with cardiology.
Continue with broad-spectrum antibiotics till culture data is finalized. Consult ID.
Severe lactic acidosis suspect secondary to shock. Continue to optimize hemodynamics.
Oliguric acute kidney injury. Associated acidosis noted. Small right pleural effusion noted. Dialysis catheter obtained. Await nephrology input regarding dialysis. Heart rate situation with shock and cardiomyopathy and low EF in the need of
dialysis.
Shock liver evident. Follow LFTs closely.
Paroxysmal atrial fibrillation with RVR. Currently in sinus rhythm. DC amiodarone with shock liver.
Discussed with son and daughter at bedside and went over the acute critical situation patient is an and guarded prognosis. Patient apparently made it clear that he would want to have full supportive care. Full code.
Discussed with GUEST EXPERIENCE REPRESENTATIVE-obtain Espinoza catheter for I&O's.
Total Critical Care Time_35____ minutes. I was immediately available to the patient and staff. I personally examined, reviewed labs, diagnostic images/reports, interpretations, treatment plans, discussed patient care with other providers and
family or caregivers (if patient is unable to make decisions), entered orders as appropriate and documented the medical record.
Original Note:
Today's Communication/Plan
-
Patient currently intubated in the ICU after an episode of respiratory distress over the evening. Patient currently on Levophed to maintain hemodynamics. Continue anxiolytics and analgesics. Continue current antibiotics.
Assessment / Plan
Assessment / Plan
Assessment/Plan:
-Shock secondary to severe cardiomyopathy vs sepsis:
On admission the patient had a white blood cell count of 11.7, patient was hypotensive with a blood pressure of 77/50, tachycardic with a heart rate of 115, respiratory rate reaching up to 36, and a pulse ox of 74 on room air.
Elevated troponin of 1.54 on 10/22/2024
Maintain hemodynamic stability - keep MAP greater than 65
Patient requires Levophed to maintain hemodynamics -received Levophed 250 mL at 1:56AM and at 6:01AM on 10/23/2024
Alkaline IV fluids given for metabolic acidosis with hyperkalemia (D5 water given hypoglycemia) at 100 cc an hour
Blood cultures, urine analysis and cultures taken -pending results
Broad-spectrum antibiotics given
Currently admitted to the ICU on Levophed and intubated on 10/23/2024
-Paroxysmal Atrial fibrillation with rapid ventricular response:
Elevated troponin of 1.54 on 10/22/2024
On Eliquis prior to admission
ICD in place - device interrogation reveals atrial fibrillation with rapid ventricular response
Currently receiving amiodarone -continue
Patient is hemodynamically unstable
HFrEF:
Most recent echocardiogram has an ejection fraction of 10-15% -cardiology records suggest possible amyloidosis
Patient has a biventricular ICD -device interrogation reveals atrial fibrillation with rapid ventricular response
Holding all antihypertensive medications
Cautious volume replacement -due to the patient's severely decreased ejection fraction the patient is at risk of pulmonary edema
-Transaminitis:
Patient had an AST and ALT of 3506 and 1512 respectively on 10/23/2024
Suspect secondary to shock liver in the setting of hypotension
CT abdomen and pelvis to evaluate for any acute intra-abdominal processes
-CLAUDIA:
Anion gap metabolic acidosis -patient had a sodium level of 132, chloride of 97, and bicarb of 10�calculated anion gap 25 on 10/22/2024
Creatinine was 3.6 on 10/22/2024
Calculate FENa from urinanalysis
Renally dose all medications
IV fluids
-Right sided pleural effusion:
Chest x-ray conducted on 10/22/2024 showed a small right pleural effusion
-Pulmonary nodule on prior CT scan
Detected on chest CT on 03/06/2024 - 'There are multiple irregular nodules within the right upper lobe and also within the right middle lobe of indeterminate etiology, the largest measuring approximately 1.8 cm.. These could be metastatic in nature
versus infectious or inflammatory.'
Will require further follow-up in the outpatient setting
-Aortic stenosis seen on heart cath conducted on 02/10/2024
-Peripheral vascular disease status post left BKA and prior femorofemoral bypass
-COPD
-History of bladder cancer
-History of CML
CODE STATUS:
Stress Ulcer Prophylaxis:
DVT Prophylaxis:
Imaging:
-Echocardiogram conducted on June 2024:
Small left ventricular cavity. Severely reduced LV systolic function. LVEF 10-15%.
Global hypokinesis with relative apical sparing.
Moderate concentric LV hypertrophy with speckled appearance.
Stage III diastolic dysfunction.
Biatrial enlargement.
No significant valvular disease.
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
-Chest x-ray conducted on 10/22/2024:
Small right pleural effusion without significant change.
Pulmonary vascularity borderline prominent, stable.
-Abdomen/pelvis CT conducted on 10/22/2024:
FINDINGS: Evaluation overall MARKEDLY LIMITED as a result of numerous factors including beam hardening artifact from the patient's bilateral upper extremities, prominent respiration/motion artifact, lack of oral contrast, lack of intravenous
contrast and paucity of intra-abdominal fat.
CHEST:Partially included on this study is a dense right lower lobe consolidation with some minor air bronchograms and at least moderate volume right pleural effusion. The heart is incompletely included on this study, moderately enlarged. Large
volume fluid material/fluid is seen in the stomach extending into the distal thoracic esophagus lateral which is incompletely included on this study.
ABDOMEN:Calcific atherosclerotic changes of the abdominal aorta are seen without aneurysmal dilatation. There is no gross focal space-occupying in lesion in the liver and spleen, markedly limited. Markedly limited evaluation of the gallbladder is
seen predominantly as a result of beam hardening artifact and respiratory/motion artifact. There are no gross findings to suggest biliary tract dilatation. There is no gross focal renal or adrenal abnormality. The pancreas is markedly atrophic.
There is no significant retroperitoneal lymphadenopathy. Evaluation of the intestinal tract is markedly limited by all of the above factors most prominently only lack of oral contrast and paucity of intra-abdominal/pelvic fat without intestinal
obstruction or free air. There is an apparent distal colonic anastomosis, most likely in the distal sigmoid region and/or rectum.
PELVIS:The urinary bladder is markedly incompletely distended and unopacified, markedly limited. The prostate gland is enlarged with central gland calcifications. There is no significant pelvic lymphadenopathy or significant free fluid.
SKELETON:Partial T12 vertebral compression fracture is stable. There is mild L2 and moderate L5 vertebral compression fractures which although are new in the interval since prior study, may be chronic.
-Follow-up CXR conducted on 10/22/2024:
FINDINGS: Interval insertion of endotracheal tube with tip in good position, 6 cm above the abhi.
Nasogastric tube is present, extending into the left upper quadrant, tip off the inferior to the radiograph, but likely within the stomach, with distal sidehole at the gastroesophageal junction.
Left chest wall battery pack with lead tips over the right atrium, right ventricle, and left paramedian lower chest, stable.
Left shoulder prosthesis is present.
Cardiac silhouette size is enlarged with interstitial pulmonary edema pattern. Small to moderate right pleural effusion. Edema and right effusion appears stable from recent radiograph.
4 mm calcified granuloma in the left midlung. Deformity of the left anterolateral fifth and sixth ribs, likely old fractures. Mild levoconvex scoliosis of the thoracic spine.
Procedures:
-Heart cath conducted on 02/10/2024:
1. Mildly elevated left heart filling pressures with moderate pulmonary hypertension
2. Mild aortic stenosis with mean gradient 7 mmHg. The calculated cardiac output was 4.0.
3. Stable mild CAD as described
4. Anterolateral hypokinesis with EF 37%
Anticipated Discharge: > 48 hours
Subjective/Interval History
-
Date of Service: October 23, 2024
Patient currently intubated and sedated�unable to converse with patient. Patient does not appear uncomfortable.
Objective Data
-
Labs:
Laboratory Results
10/22/24 10/23/24 10/23/24
20:46 00:18 01:58
WBC 8.9
Hgb 13.4
Hct 39.1
Plt Count 108 L D
HCO3 Cancelled 11.4 L*
Sodium 132 L
Potassium 4.5
Chloride 91 L
Carbon Dioxide 15 L
BUN 66 H
Creatinine 3.9 H
Glucose 257 H
Calcium 6.4 L*
Total Bilirubin
AST
ALT
Alkaline Phosphatase
10/23/24
06:14
WBC 9.7
Hgb 13.9
Hct 39.1
Plt Count 100 L
HCO3
Sodium 132 L
Potassium 4.3
Chloride 90 L
Carbon Dioxide 15 L
BUN 70 H
Creatinine 4.1 H*
Glucose 230 H
Calcium 6.7 L*
Total Bilirubin 2.9 H
AST Pending
ALT 3068 H*
Alkaline Phosphatase 142 H
Vital Signs:
Vital Signs
Temp Pulse Resp BP Pulse Ox
97.6 F 93 20 114/73 100
10/23/24 03:30 10/23/24 05:45 10/23/24 05:45 10/23/24 05:45 10/23/24 05:58
I&O
10/22/24 10/23/24 10/24/24
06:59 06:59 06:59
Intake Total 2629.6 / 2629.6
Balance 2628.6 / 2629.6
Review of Systems
-
Unable to obtain full review of systems at this time due to: Patient Intubation
Physical Exam
-
General: Well Developed and Appears Chronically Ill
HEENT: Normocephalic, Atraumatic and Moist Mucous Membranes
Respiratory: Chest Tubes (Intubated)
Cardiac: S1/S2; Negative Murmur or Rub
Breast: Deferred by me
GI: Soft, Nontender, Nondistended and Normal Bowel Sounds
Musculoskeletal: No Clubbing, No Cyanosis and No Edema
Skin: Warm and Dry; Negative Rash or Ulcers
Neuro: Negative Awake, Alert, Oriented or AO x 3
[2024-10-23 07:31] LABS: ALT (SGPT) 3068 U/L (0-50)
[2024-10-23 07:52] LABS: AST (SGOT) > 7500 U/L (17-59)
--- NOTE | 2024-10-23 08:15 | PHA.VAN.FU ---
Addendum entered and electronically signed by Portia Goodrich [facility] 10/23/24 08:27:
MRSA screen ordered per protocol
Original Note:
Vancomycin Assessment / Plan
- Assessment
Renal Function: SCR Increasing
WBC's are: WNL
Concomitant Antimicrobials: piperacillin/tazobactam
- Assessment - Therapeutic Drug Monitoring
Random Level: 9.5 - drawn ~16.5H after 1g loading dose
- Dosing Plan
Dosing by Level: Re-dose today (Vanc 500mg)
Will re-dose today, ~10mg/kg actual weight, to achieve therapeutic level - anticipate patient will maintain level for several days with current SCR
- Monitoring Plan
Random Level: 10/24 0600 to monitor trend
- Follow Up
Pharmacy will continue to follow.
Vancomycin Follow UP
- -
Patient Age: 79
Patient Sex: Male
Vancomycin Day #: 2
Indication: Gi / Intra-Abdominal
Requesting Provider: Dr. Mina
Pertinent Antimicrobial Allergies:
no pertinent antibiotic allergies
Height / Weight:
Height 5 ft 8 in
Actual Weight 46 kg
IBW in k.4
Pertinent Past Medical History: BMI ~15.4, COPD
- Vital Signs / Lab Results
Temp Pulse Resp BP Pulse Ox
98.3 F 93 20 114/73 100
10/23/24 07:53 10/23/24 05:45 10/23/24 05:45 10/23/24 05:45 10/23/24 05:58
Lab Results - Hematology
10/22/24 10/22/24 10/23/24
11:17 14:39 00:18
WBC 11.7 H Cancelled 8.9
10/23/24
06:14
WBC 9.7
Lab Results - Chemistry
10/22/24 10/23/24 10/23/24
11:17 00:18 06:14
BUN 64 H 66 H 70 H
Creatinine 3.6 H 3.9 H 4.1 H*
Estimated Creat Clear 11 10 10
Albumin 3.1 L 2.6 L
10/22/24 10/22/24 10/23/24
13:14 18:01 00:18
Lactic Acid 8.8 H* 8.8 H* 14.2 H*
10/23/24
06:14
Lactic Acid 12.5 H*
Lab Results - Urine
10/22/24
11:12
Urine Nitrite (Reflex) Cancelled
Leukocyte Esterase Rfl Cancelled
Therapeutic Drug Monitoring
Random Vancomycin 9.5 ug/ml 10/23/24 06:14
--- NOTE | 2024-10-23 08:18 | PN.DE.MGMTRT ---
Insulin Management
- -
10/23/24: Diabetes Management Consult
71 year old male admitted for further evaluation of ongoing nausea, vomiting and worsening acute on chronic back pain.
PMH: NICM EF 10-15%, Arrhythmia (atrial fib), Bladder, Ca, CHF, HTN, Hypercholesterolemia, TX and Diverticulitis PAD, h/o multiple falls s/p coccyx fx.
Patient reported very poor p.o. intake over the last 3 to 4 days. He was noted for hypoglycemic as well as acidotic with serum bicarb 10 on BMP on arrival in the ER. Patient received dextrose supplementation with improving blood sugar and noted for
rebound Hyperglycemia, requiring initiation of Critical Care glycemic protocol
Pt developed acute respiratory distress and was intubated overnight. Unable to provide diabetes hx or discuss care plan, information obtained from chart.
A1C 5.7%, Cr 4.1, eGFR 14.17. Chart review indicates pt was taking Jardiance 10mg daily, No family at bedside to collaborate med hx
Currently NPO, remains on insulin infusion, glucose range 104 to 296, requiring 1.3 to 7 units of insulin/hr. Glucose target 140 to 180.
Will make no changes to current regimen. Will follow closely for readiness to transition off drip when medically stable.
Diabetes History
- -
Type of Diabetes: 2
Pre-Admission Diabetes Regimen
10/22/24 10/23/24 10/23/24
11:17 00:18 06:14
Creatinine 3.6 H 3.9 H 4.1 H*
Insulin Pump Settings
IP Diabetes Regimen
10/22/24 10/22/24 10/22/24
11:15 11:17 11:56
Glucose 150 H
POC Glucose 142 H 60 L
10/22/24 10/22/24 10/22/24
12:31 18:15 23:54
Glucose
POC Glucose 81 154 H 270 H
10/23/24 10/23/24 10/23/24
00:18 00:58 02:56
Glucose 257 H
POC Glucose 278 H 296 H
10/23/24 10/23/24 10/23/24
04:15 05:19 06:14
Glucose 230 H
POC Glucose 253 H 228 H
10/23/24 10/23/24
06:19 06:57
Glucose
POC Glucose 181 H 171 H
Patient Education
--- NOTE | 2024-10-23 08:41 | OR.RPT ---
Operative Report
Operative Report
Right subclavian central venous catheter placement
Informed consent was obtained from patient's daughter at bedside. Patient in shock on multiple pressor therapy and needs central line access.
Bedside ultrasound was used to confirm patency of right subclavian vein. Under sterile condition area was subsequently cleaned and a full body drape was placed. 3 mL of lidocaine was injected locally for local anesthesia. Under sterile condition
and with an ultrasound probe in place, real-time long axis visualization and cannulation of subclavian vein was performed until blood was aspirated. Syringe was then detached and guidewire was advanced without any resistance. With guidewire in
place, needle was withdrawn. Ultrasound was used again to confirm positioning of guidewire inside the vein lumen. A small jv was placed at the skin level and a dilator was placed to about 50% of its length. Dilator was removed and a central
line catheter was threaded over the guidewire. Once catheter inserted guidewire was removed. Caps were placed on all 3 ports of central line. Sterile flushes were used to confirm withdrawal of blood and easy flushing of all 3 ports. Central
catheter was then sutured to skin and dressing was placed.
Complications: None
Blood loss: None
Chest x-ray: without any evidence of pneumothorax, central line in appropriate location.
Patient tolerated procedure well.
Performed by: Cassie Foster MD
Date of service: 10/23/2024
--- NOTE | 2024-10-23 08:43 | OR.RPT ---
Operative Report
Operative Report
Right IJ Trailysis Catheter placement
Indication: Shock, need central access for CRRT/hemodialysis for acute renal failure, anuria along with acidosis
Consent obtained from: Patient's daughter as patient sedated and mechanically ventilated, unable to consent
Time-out was performed and patient was placed in Trendelenburg position. Ultrasound was used to assess patency of Right IJ vein. Under sterile conditions area was cleaned with chlorhexidine and then a full body drape was placed. 3 mL of local
anesthesia with lidocaine was injected. Under real-time ultrasound guidance, long axis view, the needle was inserted and vein was punctured, once blood was aspirated, syringe was removed and guidewire was advanced which did not meet any resistance.
Subsequently needle was withdrawn and guidewire was left in place. Ultrasound was used again to confirm presence of guidewire inside the vein lumen. A small jv was placed at the skin and a dilator was advanced to about 50% of its length.
Serial dilation was performed with all 3 dilators. Largest dilator was then removed and Trialysis catheter was advanced over guidewire and subsequently guidewire was removed. All 3 ports were capped and they were easy to flush and were withdrawing
blood without any resistance. Catheter was sutured to the skin and dressing was applied.
Ultrasound of the lungs was performed and good lung sliding was obtained. Patient stayed hemodynamically stable through the procedure.
Complications: None
Blood loss: Minimal
Time spent: 35 min
Date of Service: 10/23/2024
[2024-10-23 08:44] LABS: Glucose - Point of Care 104 mg/dl (70-99)
--- NOTE | 2024-10-23 08:48 | W.PN.INTV ---
Today's Communication / Plan
Recommendations
-Place central line. Patient has extremely poor arterial circulation, will avoid placing arterial line
-Establish dialysis access for possible CRRT, right IJ trialysis catheter placed
-DC heparin infusion as patient has nonischemic cardiomyopathy
-Continue NG to suction, DC aspirin,
-Suspect developing coagulopathy/DIC, DC subcu heparin, give vitamin K IV, monitor fibrinogen level
-Start D10 for hypoglycemia in view of worsening liver injury
-Serial VBG and serial labs
-Add vasopressin
-Ongoing discussion regarding goals of care
Assessment
-
#1. Shock, likely mixed with underlying severe cardiomyopathy and possibly sepsis. Also patient was quite hypovolemic on exam and likely was hypotensive and hypovolemic for few days prior to presentation
-S/p IV fluid resuscitation
-Currently on Levophed and vasopressin
-Continue broad-spectrum antibiotics, infectious disease service on case
-Add stress dose steroids
-Lactate continues to be elevated
-Worsening multiorgan failure with worsening CLAUDIA, acute liver injury, worsening coagulopathy
-Very poor prognosis
-Follow-up on cultures
#2. Acute hypoxic respiratory failure in the setting of severe metabolic acidosis
-S/p intubation and mechanical ventilation. Prior to intubation, VBG showed pH of 7.02, CO2 of 48. Most recent gas 7.38, 38.
-Continue current ventilatory settings 400, 20, 5.
#3. CLAUDIA with anuria
-S/p right IJ trialysis catheter placement
-Nephrology service consulted, likely will need renal replacement therapy if he is able to tolerate with shock in the next 24 hours
-Monitor input and output closely
#4. Acute liver injury with worsening coagulopathy, question DIC
-Patient has worsening liver function likely related to hypotension and shock liver. INR has increased. Platelet count 100.
-Stat vitamin K 10 units IVPB, check fibrinogen level
-DC antiplatelets, anticoagulants
#5. Nausea vomiting with partial gastric outlet obstruction with likely low-grade GI bleed.
-Continue NG tube to intermittent suction, coffee-ground output noted
-Continue PPI twice daily
-Monitor CBC closely
#6. A-fib, RVR with hemodynamic instability
-AICD in place
-Hold Eliquis, cardiology service on case
-Patient was treated with amiodarone infusion
#7. Nonischemic cardiomyopathy with ejection fraction 10 to 15%, suspect amyloidosis as per cardiology records.
-Status post biventricular ICD, interrogation shows atrial fibrillation with RVR.
-Withhold all antihypertensive medications, cautious volume replacement
#8. Small right-sided pleural effusion
-Appears to be chronic, previous x-rays also show similar effusion (s/p thoracentesis in February/2024, suspect he has some degree of trapped lung leading to chronic small pleural effusion)
-Continue to monitor for now, less likely source of sepsis
Other medical comorbidities:
-Peripheral vascular disease status post left BKA and prior femorofemoral bypass
-COPD
-History of bladder cancer
-History of CML
-Pulmonary nodule on prior CT scan, need ongoing surveillance and outpatient follow-up with pulmonary clinic
CODE STATUS: Full currently. Explained to the family at bedside regarding developing multiorgan failure. Patient is critically ill and might not survive this current severe illness.
Critical Care time 55 mins -- The patient is admitted for acute critical illness for the treatment of vital organ failure and/or prevention of further life-threatening conditions. Total care includes time spent in review of history, physical exam,
medications, hemodynamic/ventilator parameters, laboratory data, imaging and discussion with house staff, pharmacy, respiratory therapy, computer video game designer, and nursing.
Subjective Dataa
Subjective Data
Date of Service:
Date of Service: October 23, 2024
Subjective:
Patient currently intubated, sedated on pressor support and an uric.
Review of Systems
General: Unobtainable - Sedation
Objective Data
Data Reviewed
Vital Signs / I&O / Oxygen:
Vital Signs
Temp Pulse Resp BP Pulse Ox
98.3 F 93 20 114/73 100
10/23/24 07:53 10/23/24 05:45 10/23/24 05:45 10/23/24 05:45 10/23/24 05:58
Intake and Output
10/22/24 10/23/24 10/24/24
06:59 06:59 06:59
Intake Total 2994.4 / 2994.4
Balance 2994.4 / 2994.4
SaO2 [A/C] 98
SaO2 100
Physical Exam
General: Comfortable and Other (Very cachectic appearing, bitemporal wasting)
HEENT: Normocephalic
Cardiovascular: S1-S2
Respiratory: Clear
GI: Soft
Neurology: Other (Sedated)
Skin: Other (Extremities are cold, fingertips have purplish hue without akil cyanosis)
Labs/Micro/Reports
Lab Data
10/23/24 06:14
10/23/24 06:14
Laboratory Results
10/22/24 10/22/24 10/22/24
12:51 14:39 20:46
APTT Cancelled
pH Cancelled Cancelled
pCO2 Cancelled Cancelled
pO2 Cancelled Cancelled
HCO3 Cancelled Cancelled
O2 Delivery Level Cancelled Cancelled
10/23/24
01:58
APTT
pH 7.52 H
pCO2 14 L*
pO2 293 H
HCO3 11.4 L*
O2 Delivery Level 100
--- NOTE | 2024-10-23 08:57 | W.PN.CD ---
Today's Communication / Plan
-
stop amiodarone
continue agressive supportive care per patient GOC.
Impression / Plan
-
Shock, likely septic but given severe CMY certainly an element of cardiogenic shock also playing a role.
-this diagnosis is threat to life
-multiorgan system failure present
-Intubated overnight for increased resp distress
-source unknown, cultures pending, CT Abd/pelvis states dense RLL consolidation with air bronchograms.and mod right pleural effusion.?aspiration
- Large volume of fluid in stomach--GOO
-abx ordered
-on bicarb
-on Levophed, which requires intensive monitoring
NICM EF 10-15%:
-patient with suspected amyloid
-Bi-V ICD in place- interrogated and shows AFIB 120-130 BPM, AFIB burden 0.2%, 247 high vent rates AFIB with RVR, Apaced <1%, BI-V paced <4% per device nurse in office
-will update echo to help with prognosis as hasn't been reevaluated after BiV implant
-on BB, Jardiance as OP
HFrEF: chronic
-does not appear volume overloaded, had poor po intake and was felt to be hypovolemic on arrival
Abnormal troponin:
-suspect acute, non-ischemic myocardial injury in setting of shock
-no CP
-can trend
AFIB with RVR:
-in NSR
-Given Acute liver failure will hold further Amio for now
-on Eliquis for OAC
CLAUDIA:
-in setting of shock
-not making urine, likely will need HD
-nephrology consulted
Abnormal LFT's:
-worsening
-in setting of shock
Gastric outlet obstruction:
-GI following
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
LBBB
COPD
Bladder CA
Subjective:
He is now intubated and sedated
Long discussion with son, girlfriend and daughter.
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 Paul has been very clear about his goals of care and wants every agressive therapy until
he was brain . I do think he has a very high risk of not surviving this hospitalization. Every one is aware.
Total time in his care today is [address] abd/pelvis 10/22/24:MARKEDLY LIMITED EVALUATION as a result of numerous factors, as detailed above.��
Large dense right lower lobe consolidation with minimal air bronchograms (atelectasis/pneumonia
versus mass) and at least moderate right pleural effusion.��
Some filled with air and fluid extending into the distal thoracic esophagus. Cannot exclude partial
gastric outlet obstruction.��
No intestinal obstruction or free air
Physical Exam
Vital Signs/Labs
Vital Signs
Temp Pulse Resp BP Pulse Ox
98.3 F 93 20 114/73 100
10/23/24 07:53 10/23/24 05:45 10/23/24 05:45 10/23/24 05:45 10/23/24 05:58
10/22/24 10/23/24 10/24/24
06:59 06:59 06:59
Actual Weight 46 kg
10/23/24 06:14
10/23/24 06:14
APTT Cancelled 10/22/24 14:39
Magnesium 2.4 mg/dl (1.6-2.3) H 10/22/24 11:17
10/22/24
11:17
Nag-X-Adikjuuswcb Pept > 67018
LAB Results
10/22/24 10/22/24 10/22/24
11:17 16:25 20:47
Troponin I 1.540 H* 1.750 H* 2.210 H* D
10/23/24 10/23/24
00:18 06:14
Troponin I 2.230 H* 3.360 H* D
Physical Exam
Constitutional: Comfortable and Other (intubated and sedate, cachectic, bitemporal wasting. )
Cardiovascular: Rhythm & rate is regular and Pedal edema is absent (s/p BKA, remaining leg without edema)
Respiratory: Respiratory effort normal (on ventilator), Wheeze Absent, Crackles Absent and Rhonchi Absent
GI: Soft
Data Reviewed
-
Date of Service: October 23, 2024
EKG: Other (pacing)
[2024-10-23 09:02] LABS: Absolute Neutrophils -Man Diff 9.1 10^3/uL (1.4-6.5); Band Neutrophils 11 % (0-3); Lymphocytes 5 % (20-51); Monocytes 1 % (2-9); Segmented Neutrophils 83 % (42-75)
[2024-10-23 09:03] LABS: Acanthocytes 1+; Anisocytosis 1+; Hypochromasia 1+; Normal RBC Morphology No; Platelets Checked Yes; Polychromasia 1+; Target Cells FEW
[2024-10-23 09:04] LABS: Total Cells Counted 100
--- NOTE | 2024-10-23 09:20 | PTCARENOTE ---
Rec'd pt at [address] Foster at the bedside at 0720 and placed a RIJ Trialyis HD catheter and RSC TLC. Chest and ABd films done post procedure. Attempted R radial A line but unable to place. Once lines placed able to fully assess pt-
Rec'd pt sedated on Pecedex at 1 mcg and Fentanyl at 175 mcg. CPOT is a 0 and RASS a -5. Pt not responsive to verbal or tactile stimuli. Pupils sluggish at 2mm. No moving extremities currently. Will start to wean sedation off to assess neuro status
as pt tolerates. Currently Precedex decreased to 0.9mcg. Skin is pale/sallow- trunk is warm but extremties are cool. Nailbeds are dusky with refill >2 seconds. Wounds as documented. Silicone foam dressings of sacrum and L BKA stump. Hydrocolloid
dressing on top of head from previous MOHS procedure. Pt with multiple areas of ecchymosis. Respirs are intact on the vent. #8 ETT 23 cm retaped to the center of the mouth. BS are sl decreased throughout. Vent AC 20, tv 450, peep 5 FIO 2 50%. Does
not add rate or volume currently. No cough or gag. Unable to get any secretions when suctioned. Unable to consistently get on O2 sat read 100% very briefly then unable to get readings despite multiple sites used. Monitor VPaced with are AV paced. VS
as documented. Levophed currently at 14 mcg. Will titrate to keep SYST >90.Amiodarone gtt at 0.5 mg/min. Radial pulses with the doppler. Unable to get PT or DP pulses with the doppler on the the R foot. Dr. Foster aware. Abd is soft. Hypoactive BS.
Rnare [place] 55 cm angela. Low int suction. Placement auscultated. Draining brownish/bloody tinged drainage. No stools. Condom cath in place. No urine output. Pt on the Glycemic protocol Insulin gtt infusing via R forearm IV site. All other gtts
infusing via peripheral sites. Once placement confirmed on central lines all gtts except the Insulin gtt changed over to the [facility] TLC. Int removed from the LAC due to leaking. Capped ints intact R wrist and RAC. Turned and repositioned. Skin and
mouth care given.
[2024-10-23] MEDS: CORDARONE 518 MG IV (09:24)
--- NOTE | 2024-10-23 09:30 | PTCARENOTE ---
Bicarb gtt stopped per md chiang
[2024-10-23] MEDS: PROTONIX IV 40 MG IV ×2 (09:41→19:45)
[2024-10-23] MEDS: NSS (PRESERVATIVE FREE) 10 ML IV ×2 (09:41→19:44)
[2024-10-23 09:45] LABS: Glucose - Point of Care 111 mg/dl (70-99)
[2024-10-23 10:09] LABS: Glycohemoglobin (HgbA1c) 5.7 % (4.0-5.6)
--- NOTE | 2024-10-23 10:20 | PTCARENOTE ---
Dr. Pascal in to see pt and speak with family. Amiodarone gtt dc'd per md order. Vent Fio2 decreased to 40%. Pt has not voided. Pt bladder scanned fro 147 mls of urine. No other changes.
[2024-10-23 10:46] LABS: Glucose - Point of Care 110 mg/dl (70-99)
[2024-10-23] MEDS: VANCOCIN HCL 500 MG 100 IV (10:52)
[2024-10-23] MEDS: PITRESSIN 100 IV ×2 (10:57→19:52)
--- NOTE | 2024-10-23 11:05 | PTCARENOTE ---
Vasopressin added per MD order. Will wean Levophed as bP permits. ECHO completed. #16 thermisor zamora placed per md order- return intially of 20 mls of tea colored urine. Vancomycin 500 mg IV hung. Weaning Precedex and Fentanyl as RASS is -5 and
CPOT 0.
--- NOTE | 2024-10-23 11:30 | PTCARENOTE ---
Glucose 99 and per protocol Insulin gtt turned off will continue to monitor glucose
--- NOTE | 2024-10-23 11:33 | CON.ID ---
Consultation
-
Date/Time Consultation Requested: October 23, 2024 1003
Date/Time Consultation Performed: October 23, 2024 1130
Requesting Provider: Dr. Su aGr
Performing Provider: Dr. Senait Mojica
Reason for Consultation: PNA
Chief Complaint / Past History
Chief Complaint
Nausea and vomiting.
History of Present Illness
History obtained from review of medical records since patient is currently intubated and sedated. 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
failure to thrive with weight loss, weakness over several months. He recently fell and fractured his coccyx. Patient presented to the hospital October 22 due to 2 to 3-day history of nausea and vomiting, abdominal discomfort, and low back pain. In
the ER patient was hypothermic temperature 93.1, white count 11.7, hypotensive systolic blood pressure in the 50s, CLAUDIA, significantly elevated LFTs. Lactic acid 14.2. Troponin positive. CT of the abdomen and pelvis shows a large dense right lower
lobe consolidation with air bronchograms, air and fluid in the esophagus. Overnight, patient in respiratory distress, hypoxic, pt intubated. He is currently on Zosyn and vancomycin.
Past History
Additional Past Medical History:
COPD
pAfib
Nonobstructive CAD
Heart failure with reduced EF 10 to 15%, amyloidosis suspected, status post biventricular ICD placement
Chronic myeloid leukemia
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
PAD s/p right femoral bypass and left BKA
Sigmoid diverticulitis s/p sigmoidectomy
Bladder cancer s/p resections
Hernia repair
Bilateral total knee replacements
Left shoulder replacement
Allergy History:
clopidogrel [From Plavix] Allergy (Verified 09/09/24 15:01)
Rash
niacin Allergy (Verified 09/09/24 15:01)
Rash
Medications Reviewed: Yes
Current Antibiotics:
Vancomycin
Zosyn
Social History
Tobacco: Former Smoker
Alcohol: Other (1 glass every other day)
Drug: None
Family History
Family History: Not Pertinent
Review of Systems
Review of Systems
Unable to obtain due to sedation.
Vital Signs
Temp Pulse Resp BP Pulse Ox
98.3 F 93 20 114/73 100
10/23/24 07:53 10/23/24 05:45 10/23/24 05:45 10/23/24 05:45 10/23/24 05:58
Physical Exam
Physical Exam
Constitutional: Acutely Ill, Chronically Ill and Cachetic (severe)
Eyes: No Conjunctival Hemorrhage and Other (sclera icteric)
Cardiovascular: S1/S2 and Other (ICD site no induration/erythema)
Pulmonary: Coarse (bases)
Gastrointestinal: Soft, Non Tender, Non Distended and Normal Bowel Sounds
Genito-Urinary: Espinoza and Clear Urine
Extremities: Cyanosis (right toes); Negative Edema
Wound: Other (Reviewed today's wound photos: large wound on scalp dry without surrounding erythema; Left BKA shallow wound; sacrum small wound dry)
Neurological: Tremors and Other (sedated)
Lines: CVP (RIJ no erythema)
Lab / Diagnostic Study Results
10/23/24 06:14
10/23/24 06:14
Abs Immat Gran (auto) 0.1 10^3/uL (0-0.05) H 10/22/24 11:17
Absolute Neuts (auto) 10.7 10^3/uL (1.4-6.5) H 10/22/24 11:17
Absolute Lymphs (auto) 0.2 10^3/uL (1.2-3.4) L 10/22/24 11:17
Absolute Monos (auto) 0.5 10^3/uL (0.1-0.6) 10/22/24 11:17
Absolute Basos (auto) 0.1 10^3/uL (0-0.2) 10/22/24 11:17
Total Counted 100 10/23/24 06:14
Immature Gran % 1.2 % (0-0.5) H 10/22/24 11:17
Neutrophils % 91.9 % (42.2-75.2) H 10/22/24 11:17
Lymphocytes % 1.9 % (20.5-51.1) L 10/22/24 11:17
Monocytes % 4.5 % (1.7-9.3) 10/22/24 11:17
Eosinophils % 0.0 % (0-6) 10/22/24 11:17
Basophils % 0.5 % (0-2) 10/22/24 11:17
Abs Neuts (Manual) 9.1 10^3/uL (1.4-6.5) H 10/23/24 06:14
Segmented Neutrophils 83 % (42-75) H 10/23/24 06:14
Band Neutrophils 11 % (0-3) H 10/23/24 06:14
Lymphocytes (Manual) 5 % (20-51) L 10/23/24 06:14
Lactic Acid 12.5 mmol/L (0.7-2.0) H* 10/23/24 06:14
Microbiology Results
Micro:
10/22/24 13:14 Blood Culture - Pending
Blood/Venous
10/22/24 13:14 Blood Culture - Pending
Blood/Venous
10/22/24 CT a/p: Large dense right lower lobe consolidation with minimal air bronchograms (atelectasis/pneumonia versus mass) and at least moderate right pleural effusion. Some filled with air and fluid extending into the distal thoracic esophagus.
Cannot exclude partial gastric outlet obstruction.
10/22/24 CXR: Endotracheal tube with tip in good position, 6 cm above the abhi. Nasogastric tube, which extends into the left upper quadrant, tip off the inferior to the radiograph, but likely within the stomach. Pulmonary edema pattern with small
moderate right pleural effusion, radiographically stable.
10/23/24: CXR: Right-sided central venous line catheter with tips in the SVC. Small right pleural effusion is again noted. Likely resolution of pulmonary edema pattern.
Assessment / Plan
# Shock - septic and/or cardiogenic shock
# Aspiration pneumonia (recent N/V, + fluid in esophagus)
# Multi-system organ failure- CLAUDIA, shock liver, respiratory failure/VDRF
# Severe non-ischemic cardiomyopathy EF 10%
# Severe Cachexia
-Blood cx's pending
-Ordered sputum cx
- Check for influenza and COVID
- Avoid VAnco/Zosyn combo with CLAUDIA
- DC Vancomycin.
- Replace Zosyn with cefepime/metronidazole.
- Trend vitals, oxygen status, LFT's
- Overall poor prognosis
# Conditions DAT INSTRUCTOR
COPD
pAfib
Nonobstructive CAD
Heart failure with reduced EF 10 to 15%, amyloidosis suspected, status post biventricular ICD placement
Chronic myeloid leukemia
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
PAD s/p right femoral bypass and left BKA
Sigmoid diverticulitis s/p sigmoidectomy
Bladder cancer s/p resections
Hernia repair
Bilateral total knee replacements
Left shoulder replacement
Care Review
Plan reviewed with: Nurse (Leticia)
[2024-10-23 11:37] LABS: Glucose - Point of Care 99 mg/dl (70-99)
--- NOTE | 2024-10-23 11:50 | PTCARENOTE ---
Wound care - Bhavna Kelly in to assess skin-see noted. Pt turned and repositioned.
[2024-10-23 11:53] LABS: Lactic Acid 6.5 mmol/L (0.7-2.0)
--- NOTE | 2024-10-23 12:02 | WOUNDNOTE ---
SCALP (TOP OF HEAD) (close to or to bone)
--- NOTE | 2024-10-23 12:03 | WOUNDNOTE ---
L BKA STUMP (DISTAL)
--- NOTE | 2024-10-23 12:04 | WOUNDNOTE ---
L BKA STUMP (DISTAL)
--- NOTE | 2024-10-23 12:05 | WOUNDNOTE ---
SCALP (close to or to bone)
--- NOTE | 2024-10-23 12:15 | WOUNDNOTE ---
[facility] RN note: Patient admitted with cardiogenic shock. Patient has a girlfriend who does his wound care.
See H&P for complete history.
PMH: CM, HF, ICD, a fib (Eliquis), PAD, L BKA, R femoral bypass, COPD, chronic back pain, former smoker, bilateral knee replacements, R ankle surgery, L shoulder replacement, hernia repair, squamous cell ca scalp, s/p Moh's by Dr. Reese? last
August,.
Wound Location and type/assessment: Patient admitted with: full thickness scalp wound close to or to bone with yellow/pantoja and dark purple/red tissue, no surrounding erythema. Sacral stage 3 pressure injury. L BKA distal stump deep dermal stage 2
pressure injury suspect r/t prosthesis. R heel stage 1 redness (slow to pradip persistent red). R toes discolored purple and cold. Unable to hear R pedal pulse. Patient on vasopressors and admitted with cardiogenic shock. R meza small dry scabbed
abrasions. Scattered bruises mostly on anterior chest. R outer ear black scab.
L ear lobe abrasions. Penis shaft linear red angela suspect from previous condom catheter use.
Appetite: currently NPO. Intubated. Patient extremely thin.
Pressure redistribution devices in place: Centrea Max air bed. Patient immobile. Air chair cushion under L BKA stump.
Plan: Sacral and L BKA stump dressings changed. Protective foam dressing changed on R heel. [id number] Optifoam ashley lite dressing applied to L ear lobe. Skin prep applied to linear red angela on penis shaft. Patient turned to R semi side lying
position with help from ОЛЬГА Agrawal. R heel elevation maintained with pillow. Dr. Mojica was in to see patient who viewed scalp wound picture. Current wound care has been honey silver? with hydrocolloid dressing as per what ОЛЬГА Kuhn who spoke with
daughter.
Updated including R toes, no pulse heard R foot to powder mixer and hospitalist resident. Dr. Su Gar approved local wound care orders.
Care plan to be updated and will follow as needed.
Note to case management of equipment requested for discharge: Air mattress.
Recommend follow up at wound care center and wrapper sheeter upon discharge.
--- NOTE | 2024-10-23 12:24 | W.PN.NEPH.PH ---
Today's Communication / Plan
-
see plan
Assessment/Plan
-
Impression:
Hemodynamic collapse (Shock): cardiogenic vs septic)
CLAUDIA
Gap metabolic acidosis (25)
Non Ischemic COFOUNDER EF 10-15%/defibrillator
Paroxysmal AFIB
BPH
History of intermittent ventricular tachycardia/SVT
Vomiting
Lower back
Positive troponin
Transaminitis (likely due to shock liver)
History of bladder cancer
History of CML
COPD
PAD with history of stent
Left below-knee amputation
Plan:
CLAUDIA:
-Likely due to underlying shock with hemodynamic instability (cardiogenic versus septic shock)
-No overt volume overload on physical exam
cr cont to increase and oliguric, place zamora
suspect he likely in ATN phase
met acidosis has since improving on bicarb gtt
met alaklosis likely primary resp alkalosis agree off bicarb gtt
persistent L acidosis , fluctuating trend and shock liver
CT abd shows possible GOO-GI follows on NGT
VDRF per ICU, on 40% Fio2
-Maintain pressure support to keep MAP 65 or greater with alkaline IVFS and pressor support (currently on Levaphed, vaso)
-Volume status will be tenuous as patient has significant compromise of LV function in setting of COFOUNDER
-Dose all antibiotics for GFR less than 10 cc/min
no acute indication of ASSEMBLY LINE LEADER however high risk
given his poor cardiac status and pressors requirement unlikely he will tolerate HD
CRRT might be an option but still tolerability is question
he is critically ill with MODS which carries poor prognosis
d/w family(daughter, son) at bedside in detail regarding current status and prognosis
reviewed risk of HD and possible intolerability
They understand situation and still willing to proceed ASSEMBLY LINE LEADER if needed despite knowing that he might deteriorate clinically and
CC time spent 45min
d/w nursing and ICU
-
-
Date of Service: October 23, 2024
CC / HPI / ROS
-
Chief Complaint:
CLAUDIA, met acidosis
History of Present Illness:
cr up at 4.1, oliguric, UOP not reocrded
on MGT with suction for GOO
on 2 pressors, intubated last night
met acidosis is better at 15, but Ph is high at 7.52, PCO2 14
Review of Systems:
sedated,intubated
hypothermia improved
Labs
-
Labs:
WBC 9.7 10^3/uL (4.8-10.8) 10/23/24 06:14
RBC 4.30 10^6/uL (4.70-6.10) L 10/23/24 06:14
Hgb 13.9 g/dL (13.0-18.0) 10/23/24 06:14
Hct 39.1 % (39.0-52.0) 10/23/24 06:14
Plt Count 100 10^3/uL (130-400) L 10/23/24 06:14
eGFR 14.17 10/23/24 06:14
Jyz-O-Ridjvqbbbvq Pept > 13241 pg/ml 10/22/24 11:17
Albumin 2.6 g/dl (3.5-5.0) L 10/23/24 06:14
Physical Exam
-
Vital Signs:
Vital Signs
Temp Pulse Resp BP Pulse Ox
97.3 F 93 20 124/99 100
10/23/24 12:05 10/23/24 11:30 10/23/24 11:30 10/23/24 11:30 10/23/24 06:15
Cardiovascular:: Regular rate and rhythm
Lung Excursion:: Abnormal (decreased)
Abdomen:: Nontender and Soft
Extremity Edema:: None: Right:
Zamora Catheter: No
Other Findings::
left BKA
right foot peripheral cyanosis
[2024-10-23 12:43] LABS: Blood Urea Nitrogen 76 mg/dl (9-20); Carbon Dioxide 23 mmol/L (22-30); Chloride 87 mmol/L (98-107); Glucose 103 mg/dl (70-99); Potassium 3.7 mmol/L (3.5-5.1); Sodium 129 mmol/L (135-145)
[2024-10-23 12:43] LABS: Glucose - Point of Care 89 mg/dl (70-99)
--- NOTE | 2024-10-23 12:45 | PTCARENOTE ---
Assessment overall is unchanged. Still no response to verbal or tactile stimuli but weaning sedation. Tolerating vent. Ett at the 23 cm angela L side of the mouth. No secretions with suctioning. Tolerating 40% Fi02 however pulse ox reads only very
very intermittently for 99% but very difficult to get any sats despite trying multiple site. Fingers and toes are sl cool but cyanotic. Adds no rate or volume with the vent. VS as documented. Weaning IV Levophed- currently at 10 mcg. Ng with bloody
tinged brown drainage. After pt turned zamora drained 100 mls of tea colored urine. Labs sent as ordered at [address] Nova in and had a long discussion with pts son and daughter regarding HD or CRRT and explained the riskiness
currently for him. Per Nephrology will hold off on any dialysis for now (see nephrology note). Insulin gtt remains off
[2024-10-23 12:54] LABS: Estimated Creatinine Clearance 10 ml/min
[2024-10-23 12:55] LABS: APTT 51.5 Sec (23.4-35.0); PT 46.5 Sec (11.4-14.6)
--- NOTE | 2024-10-23 13:00 | PTCARENOTE ---
Neuro assessment is unchanged. Weaning Sedation and Pressors as BP permits.
[2024-10-23 13:03] LABS: INR 5.11
--- NOTE | 2024-10-23 13:09 | CM ---
CM following re: discharge planning.
Discussed in Rounds, reviewed pt's chart, met with pt. pt's daughter Bekah and son Michel at bedside.
Pt is a 79 year old male, admitted with primary dx of Shock likely secondary to cardiogenic shock. Per Rounds meeting, pt Intubated overnight for increased respiratory distress, remains intubated, continue supportive care.
Per daughter, pt lives with a girlfriend 2SH, with a ramp and stair glide to 2nd floor, has 3 supportive children. Another daughter is ion the way to come here. Per daughter, pt uses a scooted to move around and was enjoying everything he was
doing. Pt's daughter Bekah stated she has a POA. Both pt's daughter and pt's son went to tears. Emotional support offered and provided.
PCP: Abdelrahman Edwards
Pharmacy: [facility]
D/C plan: uncertain at this time and will depend on pt's progress.
CM will follow with discharge plan updates as hospitalization progresses.
[2024-10-23 13:38] LABS: Glucose - Point of Care 80 mg/dl (70-99)
[2024-10-23] MEDS: STERILE WATER FOR INJECTION 10 ML IV (13:42)
[2024-10-23] MEDS: CALCIUM GLUCONATE 100 IV (13:42)
[2024-10-23] MEDS: MAXIPIME 1000 MG IV (13:42)
[2024-10-23 13:43] LABS: Urine Albumin 3+ (Neg - Trace); Urine Bilirubin 1+ (Negative); Urine Character Slightly Cloudy (Clear); Urine Color Amber; Urine Glucose Negative (Negative); Urine Ketone 1+ (Negative); Urine Leukocyte 1+ (Negative); Urine Nitrite Negative (Negative); Urine Occult Blood 4+ (Negative); Urine Specific Gravity 1.015 (<1.030); Urine Urobilinogen 1+ (Neg - 1+)
[2024-10-23 13:50] LABS: Urine Red Blood Cell 0-2 /HPF (0-2); Urine White Cell 21-25 /HPF (0-5)
--- NOTE | 2024-10-23 13:50 | PTCARENOTE ---
Urine studies as well as COVID and FLu swabs sent at 1330. Dr. Foster updated on labs and currently Ca++ Gluconate 1 gm hung via TLC.
[2024-10-23 13:51] LABS: Urine Bacteria Moderate (Negative)
[2024-10-23 14:10] LABS: COVID-19 Antigen Negative (Negative)
--- NOTE | 2024-10-23 14:17 | W.PN.GI.CBS2 ---
Today's Communication / Plan
-
IV PPI bid
Assessment / Plan
-
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
and left BKA, bowel resection, hernia repair with onset of vomiting and back pain.
Intubated overnight
NGT w/o major output
hgb stable
xray looks more like ileus and presents like that as well
Plan:
PPI IV bid
avoid nsaids
follow hgb
no endoscopic procedure for now
Subjective
Subjective
Date of Service: October 23, 2024
d/w nurse, pt intubated over night,
There had been 400 cc NG output overnight
Objective
Data Reviewed
Laboratory Data:
Laboratory Results
10/23/24 06:14
10/23/24 12:07
Laboratory Results
PT 46.5 Sec (11.4-14.6) H 10/23/24 12:32
INR 5.11 H* 10/23/24 12:32
APTT 51.5 Sec (23.4-35.0) H 10/23/24 12:32
Magnesium 2.4 mg/dl (1.6-2.3) H 10/22/24 11:17
Total Bilirubin 2.9 mg/dl (0.2-1.3) H 10/23/24 06:14
AST > 7500 U/L (17-59) H* 10/23/24 06:14
ALT 3068 U/L (0-50) H* 10/23/24 06:14
Alkaline Phosphatase 142 U/L (38-126) H 10/23/24 06:14
Vital Signs and I&O:
Vital Signs
Temp Pulse Resp BP Pulse Ox
97.3 F 93 20 124/99 100
10/23/24 12:05 10/23/24 11:30 10/23/24 11:30 10/23/24 11:30 10/23/24 08:45
I&O
10/22/24 10/23/24 10/24/24
06:59 06:59 06:59
Intake Total 2994.4 / 2994.4
Balance 2994.4 / 2994.4
Physical Exam
Physical Exam
HEENT: Anicteric (intubated)
[2024-10-23 14:19] LABS: Urine Sodium 17 mmol/L (30-90)
[2024-10-23] MEDS: FLAGYL 250 MG 50 IV ×2 (14:19→21:26)
--- NOTE | 2024-10-23 14:20 | PTCARENOTE ---
VBG sent. Weaning IV Fentanyl and Precedex as CPOT is 0 and Rass remains -5. Pupils are sluggish at 2 mm. Very minimal gag with suctioning. Follows no commands and no response to nailbed pressure or plantar stoke on the R foot. Currently Dex at 0.2
mcg and Fent at 75 mcg
[2024-10-23 14:25] LABS: Venous Blood Gas B.E. -2.3 mmol/L (-4 to +4); Venous Blood Gas HCO3 22.5 mmol/L (22-27); Venous Blood Gas O2 Sat % 61.5 %; Venous Blood Gas pCO2 38 mmHg (35-48); Venous Blood Gas pH 7.38 (7.32-7.43); Venous Blood Gas pO2 45 mmHg (30-50)
[2024-10-23] MEDS: SUBLIMAZE 50 MCG IV ×3 (15:01→21:44)
--- NOTE | 2024-10-23 15:05 | PTCARENOTE ---
Pt now opening eyes and pulling at restraints, trying to raise himself up off the bed. Shakes head no to questions and won't necessarily follow commands but is much more wakeful. Fentanyl gtt at 75 mcg and Precedex at 0.2 mcg. Fentanyl 50 mcg IV
bolus given and pt more relaxed. Family at the bedside.
[2024-10-23] MEDS: DEXTROSE 50% SYRINGE 12.5 GRAMS IV (15:35)
[2024-10-23] MEDS: FLUSH (NSS) 2 FLUSH IV (15:36)
[2024-10-23 15:42] LABS: Glucose - Point of Care 43 mg/dl (70-99)
[2024-10-23 15:56] LABS: Glucose - Point of Care 73 mg/dl (70-99)
[2024-10-23 15:57] LABS: Glucose - Point of Care 253 mg/dl (70-99)
--- NOTE | 2024-10-23 16:10 | PTCARENOTE ---
Fingerstick glucose at 1531 was 43, 12.5 gm D50 given at 1535. Glucose rechecked at and fingerstick result 35, obtained another specimen with venous blood from [facility] and accucheck resulted as 148. Will continue with hourly glucose checks per the
glycemic protocol but will use venous blood from IV not fingerstick as fingers are getting duskier and cooler and results not as consistent as earlier.
--- NOTE | 2024-10-23 16:15 | PN.CDI ---
CDI
- -
CDI:
Physician Documentation Request
Admit Date: 10/22/24 13:03
Dear Doctor Rin,
Patient admitted for shock.
Please review the following and provide your response in the progress notes.
Clinical Indicators:
Height: 5' 8'
Weight: 101 lbs
BMI: 15.4
If possible, please provide an associated diagnosis related to the abnormal BMI, such as:
Cachectic
Underweight
BMI is not significant
Other
BMI < or = to 19.9
Underweight
Weight Loss
Cachectic
Anorexia
Use of terms such as suspected, likely, concern for, or probable (associated with a specific diagnosis that is being evaluated, monitored, or treated as if it exists) are acceptable and can be coded in the inpatient setting, when documented at the
time of discharge.
Thank you,
Lia Chavarria
CDI Specialist
Please use your independent medical judgment in providing your response.
[2024-10-23 17:17] LABS: Glucose - Point of Care 103 mg/dl (70-99)
--- NOTE | 2024-10-23 17:25 | PTCARENOTE ---
Assessment overall is unchanged. Pt continues to intermittently open eyes spontaneously and with stimulation and will pull at restraints and shake head. Doesn't necessarily follow commands but is more arousable than earlier today. Precedex remains
at 0.2 mcg and Fent at 75 mcg. ETT repositioned on the R side of his mouth at the 23 cm angela. Mostly stays controlled at 20 on the vent unless stimulated then will add 2-3 additional breaths. VS as documented. Needed to increase the Levophed back up
to 10 mcg as Bp dipped into the 76 range. Vasopressin remains at 0.03 units/min. INR 5.11 earlier and currently Aquamephyton 10 mg IV hung. Glucose 103 at 1700 if drops below 80 again will initiate D10 per MD order. Turned and repositioned. No other
changes. Family at the bedside and updated frequently
[2024-10-23] MEDS: AQUAMEPHYTON 51 MG IV (17:26)
--- NOTE | 2024-10-23 18:30 | PTCARENOTE ---
Labs sent as ordered. No other changes in assessment.
[2024-10-23] MEDS: NOVOLOG FLEXPEN-LOW RESISTANCE SC (18:35)
[2024-10-23] MEDS: SOLU-CORTEF 50 MG IV (18:40)
[2024-10-23] MEDS: FLUSH (NSS) 1 FLUSH IV (18:41)
[2024-10-23 18:42] LABS: Glucose - Point of Care 82 mg/dl (70-99)
[2024-10-23 19:01] LABS: Lactic Acid 7.3 mmol/L (0.7-2.0)
[2024-10-23 19:05] LABS: Fibrinogen 187 MG/DL (199-459)
[2024-10-23 19:10] LABS: Albumin 2.2 g/dl (3.5-5.0); Alkaline Phosphatase 133 U/L (38-126); Blood Urea Nitrogen 75 mg/dl (9-20); Calcium 5.7 mg/dl (8.4-10.2); Carbon Dioxide 19 mmol/L (22-30); Chloride 87 mmol/L (98-107); Glucose 88 mg/dl (70-99); Sodium 127 mmol/L (135-145); Total Protein 4.5 g/dl (6.3-8.2)
[2024-10-23 19:17] LABS: Estimated Creatinine Clearance 10 ml/min; eGFR 15.52
[2024-10-23 19:19] LABS: Hematocrit 37.8 % (39.0-52.0); Hemoglobin 13.2 g/dL (13.0-18.0); Mean Corp Hgb Conc. 34.9 g/dL (33.0-37.0); Mean Corpuscular Hgb 31.7 pg (27.0-31.0); Mean Corpuscular Volume 90.6 fL (80.0-94.0); Mean Platelet Volume 10.5 fL (7.4-10.4); Platelet Count 76 10^3/uL (130-400); Red Blood Cell Count 4.17 10^6/uL (4.70-6.10); Red Cell Dist. Width 14.5 % (11.5-14.5); White Blood Cell Count 10.6 10^3/uL (4.8-10.8)
[2024-10-23 19:28] LABS: ALT (SGPT) 2651 U/L (0-50)
[2024-10-23 19:37] LABS: AST (SGOT) 5027 U/L (17-59)
[2024-10-23] MEDS: CALCIUM GLUCONATE 130 MG IV (19:52)
[2024-10-23 20:12] LABS: Glucose - Point of Care 87 mg/dl (70-99)
--- NOTE | 2024-10-23 20:30 | PTCARENOTE ---
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 #8 ETT 23cm at the lip. Pt tolerating vent settings as follows AC 20/450/+5/40%. R nare salem at 55cm, draining dark bloody/brown. Pupils reactive, corneal reflex present b/l. R PT and DP pulses not
found w/ doppler. Espinoza draining ryland/yellow urine. Levo, vaso, fent, precedex gtts infusing as documented in worklist. Calcium repletion. Pt waking up on own, pulling against restraints. PRN fent bolus - see MAR. Pt's son in the room, educated on
pt condition.
L radial pulse absent w/ doppler. b/l fingers very dusky/purple. ATTENDING ANESTHESIOLOGIST aware- L + R hands and arms wrapped in warm blankets.
Pulsox failing to turkey picker good pleth/SpO2 reading. Multiple locations attempted. Handheld pulsox briefly read 97% on L ear.
[2024-10-23] MEDS: LEVOPHED 258 MG IV (21:31)
[2024-10-23 22:20] LABS: Glucose - Point of Care 63 mg/dl (70-99)
[2024-10-23] MEDS: D10W 500 IV (22:22)
--- NOTE | 2024-10-23 22:30 | PTCARENOTE ---
Blood sugar 63, d10w gtt started. No additional PRN dextrose push. Blood glucose check 15min later 141.
[2024-10-23 22:49] LABS: Glucose - Point of Care 141 mg/dl (70-99)
[2024-10-24] VITALS (124 sets, daily range): BP systolic 51–135; BP diastolic 25–95; BMI 16.2
[2024-10-24 00:02] LABS: Lactic Acid 8.2 mmol/L (0.7-2.0)
[2024-10-24 00:12] LABS: Blood Urea Nitrogen 72 mg/dl (9-20); Calcium 6.2 mg/dl (8.4-10.2); Carbon Dioxide 18 mmol/L (22-30); Chloride 89 mmol/L (98-107); Glucose 142 mg/dl (70-99); Potassium 4.2 mmol/L (3.5-5.1); Sodium 125 mmol/L (135-145)
[2024-10-24] MEDS: NOVOLOG FLEXPEN-LOW RESISTANCE SC ×2 (00:16→23:40)
[2024-10-24] MEDS: CALCIUM GLUCONATE 290 MG IV (00:39)
[2024-10-24 00:46] LABS: Estimated Creatinine Clearance 11 ml/min; eGFR 16.56
[2024-10-24] MEDS: SOLU-CORTEF 50 MG IV ×5 (00:52→23:37)
[2024-10-24 00:58] LABS: Glucose - Point of Care 131 mg/dl (70-99)
--- NOTE | 2024-10-24 01:00 | PTCARENOTE ---
Reassessed R radial pulse no longer on doppler - FILM SORTER aware. Pt flipping between CYLINDER CHECKER and afib w/ rate in the 100s on telemetry. More Ca repletion. Continuing to tolerate vent settings as previously documented. Pulsox continuing to not read properly on
multiple different locations.
[2024-10-24 02:31] LABS: Albumin 1.7 g/dl (3.5-5.0); Alkaline Phosphatase 107 U/L (38-126); Blood Urea Nitrogen 71 mg/dl (9-20); Calcium 7.7 mg/dl (8.4-10.2); Carbon Dioxide 16 mmol/L (22-30); Chloride 90 mmol/L (98-107); Glucose 145 mg/dl (70-99); Sodium 128 mmol/L (135-145); Total Bilirubin 2.9 mg/dl (0.2-1.3); Total Protein 3.9 g/dl (6.3-8.2)
[2024-10-24 02:44] LABS: ALT (SGPT) 1892 U/L (0-50); Estimated Creatinine Clearance 12 ml/min; eGFR 17.74
[2024-10-24 03:18] LABS: Glucose - Point of Care 153 mg/dl (70-99)
[2024-10-24 03:29] LABS: AST (SGOT) 2632 U/L (17-59)
[2024-10-24 04:42] LABS: Venous Blood Gas B.E. -10.2 mmol/L (-4 to +4); Venous Blood Gas HCO3 15.5 mmol/L (22-27); Venous Blood Gas O2 Sat % 81.1 %; Venous Blood Gas pCO2 33 mmHg (35-48); Venous Blood Gas pH 7.28 (7.32-7.43); Venous Blood Gas pO2 58 mmHg (30-50)
[2024-10-24 04:43] LABS: Venous Blood Gas O2 Therapy VENT
[2024-10-24 05:06] LABS: Hematocrit 33.5 % (39.0-52.0); Mean Corp Hgb Conc. 35.8 g/dL (33.0-37.0); Mean Corpuscular Hgb 32.8 pg (27.0-31.0); Mean Corpuscular Volume 91.5 fL (80.0-94.0); Mean Platelet Volume 11.6 fL (7.4-10.4); PT > 100.0 Sec (11.4-14.6); Platelet Count 62 10^3/uL (130-400); Red Blood Cell Count 3.66 10^6/uL (4.70-6.10); Red Cell Dist. Width 14.6 % (11.5-14.5); White Blood Cell Count 12.4 10^3/uL (4.8-10.8)
[2024-10-24 05:08] LABS: INR > 8.0
[2024-10-24 05:14] LABS: Lactic Acid 9.2 mmol/L (0.7-2.0)
[2024-10-24] MEDS: SUBLIMAZE 100 IV ×2 (05:17→16:57)
[2024-10-24 05:23] LABS: Fibrinogen 165 MG/DL (199-459)
[2024-10-24] MEDS: FLAGYL 250 MG 50 IV ×3 (05:48→22:34)
[2024-10-24 06:00] LABS: Ammonia 12 umol/L (9-30)
--- NOTE | 2024-10-24 06:06 | W.PN.UPDATE ---
Update Note
Progress Note Update
Patient's type and screen and consent blood consent done. In case of blood products needed.
[2024-10-24] MEDS: NOVOLOG FLEXPEN-LOW RESISTANCE 1 UNITS SC ×2 (06:07→12:26)
[2024-10-24 06:16] LABS: Glucose - Point of Care 185 mg/dl (70-99)
[2024-10-24] MEDS: PRECEDEX 100 IV (06:42)
[2024-10-24] MEDS: PITRESSIN 100 IV ×2 (06:43→16:54)
[2024-10-24] MEDS: CORDARONE 103 MG IV (06:49)
--- NOTE | 2024-10-24 07:05 | PTCARENOTE ---
Pt into rapid afib rate 160-180s. Pressure declining, 30mcg levo. Willam briefly on. Amio bolus. Rhythm change to wide complex tachycardia, cardioverted x1 back to PLASTERER APPRENTICE rhythm.
--- NOTE | 2024-10-24 07:08 | W.PN.UPDATE ---
Update Note
Progress Note Update
Patient went into rapid afib (160 to 180 BPM). �Patient given an amio bolus, before bolus finished patient�went into V tach, hemodynamics declined and�decision made to cardioverted. Patient was cardioverted at 125 joules *1. � VT broke and patient
went back into pace rhythm and hemodynamics�stable. Amio bolus finished. Amio drip pending. �
--- NOTE | 2024-10-24 07:34 | W.PN.INTV ---
Addendum entered and electronically signed by Cassie Foster MD 10/24/24 10:33:
Goals of care discussion. I met with patient's children, daughter Bekah, son Michel and another daughter Marine at bedside and then in the conference room. We went over patient's current clinical condition and events over the last 24 hours. We
discussed various option including full code, DNR, modified DNR, comfort care etc. Patient's family opted to proceed with a modified DNR CODE STATUS. Family does not want to proceed with chest compressions in the event of cardiac arrest but do
want to proceed with cardioversion or defibrillation if clinically indicated. Considering patient's multiorgan failure and very poor prognosis and likely very poor outcome after a CPR I think this is appropriate. Orders changed in the chart,
nursing staff updated.
Original Note:
Today's Communication / Plan
Recommendations
-Continue goals of care discussion with family at bedside, very poor prognosis
-Lower D10 to 30 cc an hour
-Check venous blood gas and electrolytes later today and again in a.m.
-Follow-up coagulation profile and fibrinogen
-Monitor K and magnesium and replace as needed
Assessment
-
71-year-old gentleman with known history of nonischemic cardiomyopathy, ejection fraction 10 to 15%, presented to emergency room with weakness, nausea vomiting going on for 3 to 4 days. Patient reported essentially no p.o. intake for 4 days with
frequent episodes of nausea vomiting and feeling weak and dizzy. In the emergency room patient was noted to be hypotensive as well as in acute renal failure with acidosis. Patient also was noted to have tachyarrhythmias and on interrogation of his
pacemaker was noted to have paroxysmal atrial fibrillation with rapid ventricular rate. He was started on amiodarone after evaluation by cardiology and was admitted to ICU for hypotension. He had brief improvement in hemodynamics after fluid
resuscitation but developed more acidotic and hypotensive requiring intubation and mechanical ventilation. Patient required pressor support and developed anuric acute kidney injury. Stay was further complicated by developing coagulopathy, acute
liver injury.
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 After initial response patient's rhythm changed to ventricular tachycardia and drop blood pressure
down to 50 x 30, he was cardioverted with 125 J and that he broke back to a normal sinus rhythm.
last 24 hrs:
Patient had episode of A-fib with heart requiring amiodarone push, followed by deterioration into VT electrical cardioversion
Fluid balance, +584 mL
Hemoglobin stable at 12, white count 12.4 and platelet down to 62,000
INR worse at more than 8, PTT elevated at more than 100, fibrinogen somewhat decreased down to 265
VBG, 7.28, 33, 58 on 100% FiO2, volume control, 450, 20, 40% with a PEEP of 5
Sodium at 128, BUN/creatinine 71 x 3.4, lactate last elevated at 9.2 earlier this morning
Current infusions, Levophed, vasopressin. Sedation with Precedex and fentanyl. Patient also on D10 infusion and amiodarone infusion.
#1. Shock, likely mixed with underlying severe cardiomyopathy and possibly sepsis. Also patient was quite hypovolemic on exam and likely was hypotensive and hypovolemic for few days prior to presentation
-S/p IV fluid resuscitation
-Currently on Levophed and vasopressin
-Continue broad-spectrum antibiotics, infectious disease service on case
-Continue stress dose steroids
-Lactate continues to be elevated
-Worsening multiorgan failure with worsening CLAUDIA, acute liver injury, worsening coagulopathy
-Very poor prognosis
-Follow-up on cultures
#2. Acute hypoxic respiratory failure in the setting of severe metabolic acidosis
-S/p intubation and mechanical ventilation. Prior to intubation, VBG showed pH of 7.02, CO2 of 48.
-Continue current ventilatory settings 450, 20, 5.
#3. CLAUDIA with anuria
-S/p right IJ trialysis catheter placement
-Nephrology service consulted, likely will need renal replacement therapy if he is able to tolerate with shock in the next 24 hours
-Monitor input and output closely, urine output has seemed to improve a little over last 24 hours
#4. Acute liver injury with worsening coagulopathy, question DIC, hypoglycemia
-Patient has worsening liver function likely related to hypotension and shock liver. INR has further increased increased. Platelet count dropping without overt bleeding
-Vitamin K 10 mg IVPB given
-DC antiplatelets, anticoagulants
-Continue D10 infusion
-Check fibrinogen in a.m.
#5. Nausea vomiting with partial gastric outlet obstruction with likely low-grade GI bleed.
-Continue NG tube to intermittent suction, coffee-ground output noted
-Continue PPI twice daily
-Monitor CBC closely
#6. A-fib, RVR with hemodynamic instability complicated by ventricular tachycardia status post electrical cardioversion on 10/24
-AICD in place
-Hold Eliquis, cardiology service on case
-Amiodarone infusion
-Keep potassium above 4 and magnesium above 2
#7. Nonischemic cardiomyopathy with ejection fraction 10 to 15%, suspect amyloidosis as per cardiology records.
-Status post biventricular ICD, interrogation shows atrial fibrillation with RVR.
-Withhold all antihypertensive medications, cautious volume replacement
#8. Small right-sided pleural effusion
-Appears to be chronic, previous x-rays also show similar effusion (s/p thoracentesis in February/2024, suspect he has some degree of trapped lung leading to chronic small pleural effusion)
-Continue to monitor for now, less likely source of sepsis
#9. Family update
-Updated patient's daughter, son at bedside regarding overall very poor prognosis considering multiorgan dysfunction, continued shock and developing coagulopathy. Will continue to update the family. We also discussed the options of full code,
DNR/DNI as well as comfort focused approach.
Other medical comorbidities:
-Peripheral vascular disease status post left BKA and prior femorofemoral bypass
-COPD
-History of bladder cancer
-History of CML
-Pulmonary nodule on prior CT scan, need ongoing surveillance and outpatient follow-up with pulmonary clinic
CODE STATUS: Full currently. Explained to the family at bedside regarding developing multiorgan failure. Patient is critically ill and might not survive this current severe illness.
Critical Care time 45 mins -- The patient is admitted for acute critical illness for the treatment of vital organ failure and/or prevention of further life-threatening conditions. Total care includes time spent in review of history, physical exam,
medications, hemodynamic/ventilator parameters, laboratory data, imaging and discussion with house staff, pharmacy, respiratory therapy, member of congress, and nursing.
ECHO 10/23:
-Limited echocardiogram for reassessment of LVEF.
-Left ventricle is small in size. Left ventricular ejection fraction is
approximately 10%. Severe global hypokinesis with septal dyskinesis. Moderate
concentric left ventricular hypertrophy.
-Right ventricle not well-visualized, but appears to be grossly normal in size.
Severely reduced right ventricular systolic function. ICD wire seen in right
ventricle.
Subjective Dataa
Subjective Data
Date of Service:
Date of Service: October 24, 2024
Subjective:
Patient currently intubated sedated and mechanically ventilated
Review of Systems
General: Unobtainable - Sedation
Objective Data
Data Reviewed
Vital Signs / I&O / Oxygen:
Vital Signs
Temp Pulse Resp BP Pulse Ox
99.2 F 97 20 104/79 97
10/24/24 03:10 10/24/24 04:00 10/24/24 04:00 10/24/24 04:00 10/23/24 22:12
Intake and Output
10/23/24 10/24/24 10/25/24
06:59 06:59 07:59
Intake Total 2994.4 / 3192.5 2332.7 / 2332.7
Output Total 1550 / 1550
Balance 2994.4 / 3192.5 782.7 / 782.7
SaO2 [A/C] 97
SaO2 97
Physical Exam
General: Comfortable and Other (Very cachectic appearing, bitemporal wasting)
HEENT: Normocephalic
Cardiovascular: S1-S2
Respiratory: Clear
GI: Soft
Neurology: Other (Sedated)
Skin: Other (Extremities are cold, fingertips have purplish hue without akil cyanosis)
Labs/Micro/Reports
Lab Data
10/24/24 04:32
Laboratory Results
10/23/24 10/24/24
12:32 04:32
PT 46.5 H > 100.0 H
INR 5.11 H* > 8.0 H* D
APTT 51.5 H
Microbiology
10/23/24 13:29 Nasal Swab Influenza Types A & B (ROSALINDA) - Final
Negative for Influenza A & B, NAAT
Negative results must be combined with clinical observations
and patient history.
Nucleic Acid Amplification test (NAAT)performed on the
[employer] platform.
10/22/24 13:14 Blood/Venous Blood Culture - Preliminary
No Growth in 24 hours- Final report to follow
10/22/24 13:14 Blood/Venous Blood Culture - Preliminary
No Growth in 24 hours- Final report to follow
[2024-10-24 07:46] LABS: Absolute Neutrophils -Man Diff 11.4 10^3/uL (1.4-6.5); Band Neutrophils 21 % (0-3); Lymphocytes 1 % (20-51); Metamyelocytes 1 % (-); Monocytes 4 % (2-9); Myelocytes 2 % (-); Segmented Neutrophils 71 % (42-75)
[2024-10-24 07:47] LABS: Platelets Checked Yes
[2024-10-24 07:48] LABS: Anisocytosis Slight; Normal RBC Morphology No
[2024-10-24] MEDS: CORDARONE 518 MG IV (07:48)
[2024-10-24 07:49] LABS: Burr Cells 1+; Total Cells Counted 100
[2024-10-24] MEDS: NSS (PRESERVATIVE FREE) 10 ML IV ×2 (08:07→19:22)
[2024-10-24] MEDS: PROTONIX IV 40 MG IV ×2 (08:07→19:22)
--- NOTE | 2024-10-24 08:14 | W.PN.CD ---
Today's Communication / Plan
-
-Worsening multiorgan system failure; CLAUDIA, liver failure, lactate increasing (9.2), coagulopathy (INR >8.0), worsening thrombocytopenia (platelets now down to 62).
-Now on Levophed and vasopressin, which requires intensive monitoring.
-Echocardiogram yesterday with unchanged cardiac function (EF 10-15%).
-Patient went into atrial fibrillation with RVR overnight which then degenerated into VT; amiodarone was discontinued yesterday due to concern of abnormal LFTs.
-Patient given amiodarone bolus and defibrillated for hemodynamic instability.
-Now in sinus rhythm with ventricular pacing.
-Patient is now on an amiodarone drip; DO NOT DISCONTINUE, as this is the only thing keeping his heart rhythm relatively stable.
-Poor prognosis.
Impression / Plan
-
Septic/cardiogenic Shock:
-this diagnosis is threat to life
-Worsening multiorgan system failure; CLAUDIA, liver failure, lactate increasing (9.2), coagulopathy (INR >8.0), worsening thrombocytopenia (platelets now down to 62).
-I remains intubated.
-source unknown, cultures pending, CT Abd/pelvis states dense RLL consolidation with air bronchograms.and mod right pleural effusion.?aspiration
- Large volume of fluid in stomach--GOO
-abx ordered
-on bicarb
-Now on Levophed and vasopressin, which requires intensive monitoring.
Chronic HFrEF/NICM EF 10-15%/VT:
-patient with suspected amyloid
-Bi-V ICD in place- interrogated and shows AFIB 120-130 BPM, AFIB burden 0.2%, 247 high vent rates AFIB with RVR, Apaced <1%, BI-V paced <4% per device nurse in office
-Echocardiogram yesterday with unchanged cardiac function (EF 10-15%).
-on BB, Jardiance as OP
-Patient went into atrial fibrillation with RVR overnight which then degenerated into VT; amiodarone was discontinued yesterday due to concern of abnormal LFTs.
-Patient given amiodarone bolus and defibrillated for hemodynamic instability.
-Now in sinus rhythm with ventricular pacing.
-Patient is now on an amiodarone drip; DO NOT DISCONTINUE, as this is the only thing keeping his heart rhythm relatively stable.
Abnormal troponin:
-suspect acute, non-ischemic myocardial injury in setting of shock
AFIB with RVR/VT:
-Now in sinus rhythm after defibrillation.
-Was on Eliquis for anticoagulation; discontinued given coagulopathy.
-Continue amiodarone drip as above.
-Continue monitor technician.
CLAUDIA:
-in setting of shock
-not making urine, likely will need HD
-Nephrology consulted; recommendations as per Nephrology.
Abnormal LFT's:
-worsening
-in setting of shock
Gastric outlet obstruction:
-GI following
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
LBBB -chronic
COPD
Bladder CA
Total time in his care today is [address] abd/pelvis 10/22/24:MARKEDLY LIMITED EVALUATION as a result of numerous factors, as detailed above.��
Large dense right lower lobe consolidation with minimal air bronchograms (atelectasis/pneumonia
versus mass) and at least moderate right pleural effusion.��
Some filled with air and fluid extending into the distal thoracic esophagus. Cannot exclude partial
gastric outlet obstruction.��
No intestinal obstruction or free air
Physical Exam
Vital Signs/Labs
Vital Signs
Temp Pulse Resp BP Pulse Ox
98.8 F 85 25 113/76 97
10/24/24 07:00 10/24/24 07:56 10/24/24 07:56 10/24/24 07:56 10/23/24 22:12
10/23/24 10/24/24 10/25/24
06:59 06:59 07:59
Actual Weight 46 kg 48.3 kg
10/24/24 04:32
PT > 100.0 Sec (11.4-14.6) H 10/24/24 04:32
INR > 8.0 H* D 10/24/24 04:32
APTT 51.5 Sec (23.4-35.0) H 10/23/24 12:32
Magnesium 2.4 mg/dl (1.6-2.3) H 10/22/24 11:17
10/22/24
11:17
Vca-R-Zqpdztzdsxe Pept > 14607
LAB Results
10/22/24 10/22/24 10/22/24
11:17 16:25 20:47
Troponin I 1.540 H* 1.750 H* 2.210 H* D
10/23/24 10/23/24 10/23/24
00:18 06:14 11:25
Troponin I 2.230 H* 3.360 H* D 4.170 H*
10/24/24
06:32
Troponin I 1.600 H*
Physical Exam
Constitutional: Other (Intubated, sedated)
Cardiovascular: Rhythm & rate is regular, Pedal edema is absent, Systolic murmur absent and S1S2 is normal
Respiratory: Wheeze Absent and Other (On ventilator; coarse bilateral breath sounds)
GI: Soft
Neuro/Psych: Other (Sedated, intubated)
Other: Skin (Cool extremities)
Data Reviewed
-
Date of Service: October 24, 2024
EKG: Tracing Personally Visualized and interpreted (Currently: Sinus rhythm with sequential ventricular pacing)
Echo: Tracing Personally Visualized and interpreted (EF 10-15%)
Medical Tests (PFT, Pathology etc): Discussed with Physician, Discussed with Nurse and Discussed with Family (At bedside)
Labs: Labs Reviewed by me
Critical Care Time (in minutes): 60
--- NOTE | 2024-10-24 08:30 | PTCARENOTE ---
Rec'd pt ~0730, pt sedate on Fent/Dex gtts on vent. Monitor V-paced. Amio gtts started at 1mg/min. Levophed gtts at 8mcg/min to keep SBP >90. Extremities dusky/cyanotic, unable to get peripheral pulses, penis also cyanotic. Lungs dim, fio2 40%.
Difficulty picking up pox due to cyanosis. +hypo BS, abd soft/nt. [place] to LIWS. Espinoza with small amt ryland urine output. Am BG-185, D10 decreased to 30mls/hr per MD. Family at bedside.
--- NOTE | 2024-10-24 10:05 | W.PN.NEPH.PH ---
Today's Communication / Plan
-
see plan
Assessment/Plan
-
Impression:
Hemodynamic collapse (Shock): cardiogenic vs septic)
CLAUDIA
Gap metabolic acidosis (25)
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
Paroxysmal AFIB
BPH
History of intermittent ventricular tachycardia/SVT
Vomiting
Lower back
Positive troponin
Transaminitis (likely due to shock liver)
History of bladder cancer
History of CML
COPD
PAD with history of stent
Left below-knee amputation
Plan:
CLAUDIA:
-Likely due to underlying shock with hemodynamic instability (cardiogenic versus septic shock)
cr improving to 3.4, non oliguric but decreasing UOP this am
noted events overnight with Afib RVR and VT s/p shock and on Amio gtt
monitor labs later today
no emergent indication of HD however at high risk of it
Met acidosis stable off bicarb Gtt, VBG Ph 7.28, L acid increasing as well
CT abd shows possible GOO-GI follows on NGT
VDRF per ICU, on 40% Fio2
Hyponatremia-labile pattern likely from hypotonic fluids and underlying cardiorenal status
-Maintain pressure support to keep MAP 65 or greater with alkaline IVFS and pressor support (currently on Levaphed, vaso)
-Volume status will be tenuous as patient has significant compromise of LV function in setting of PHILATELIC CONSULTANT
-Dose all antibiotics for GFR less than 10 cc/min
sig coagulopathy and shock liver
hypocalcemia-replace prn
given his poor cardiac status and pressors requirement unlikely he will tolerate HD
CRRT might be an option but still tolerability is question
he is critically ill with MODS which carries poor prognosis
d/w family(daughter, son) at bedside in detail on 10/23 and briefly today
They understand situation and still willing to proceed INTENSIVIST if needed despite knowing that he might deteriorate clinically and
noted code status adjusted no cpr but ok for shock
CC time spent 35min
d/w nursing
-
-
Date of Service: October 24, 2024
CC / HPI / ROS
-
Chief Complaint:
CLAUDIA, met acidosis
History of Present Illness:
cr down to 3.4,improving UOP non oliguric, however only 20cc since 7am
on NGT with suction for GOO
on 2 pressors, intubated
met acidosis is stable at 15, L acid high at 9
over night Afib with RVR, later VT required shockx1, now back on amio gtt, paced rhythm
LFTs improving but INR >8
Review of Systems:
sedated,intubated
Labs
-
Labs:
eGFR 1.41 10/24/24 09:56
Kfb-X-Dfjpaqiucvy Pept > 39593 pg/ml 10/22/24 11:17
Albumin 1.9 g/dl (3.5-5.0) L 10/24/24 09:56
Physical Exam
-
Vital Signs:
Vital Signs
Temp Pulse Resp BP Pulse Ox
98.2 F 62 20 96/54 95
10/24/24 11:21 10/24/24 11:30 10/24/24 11:30 10/24/24 11:30 10/24/24 09:30
Cardiovascular:: Regular rate and rhythm
Lung Excursion:: Abnormal (decreased)
Abdomen:: Nontender and Soft
Extremity Edema:: None: Right:
Espinoza Catheter: No
Other Findings::
left BKA
right foot peripheral cyanosis
--- NOTE | 2024-10-24 10:31 | W.PN.ID1 ---
Date of Service
Date of Service: October 24, 2024
Today's Communication
Continue cefepime and metrinidazole.
Poor prognosis.
Assessment / Plan
# Shock - septic and/or cardiogenic shock, on 2 pressors
# Aspiration pneumonia (h/o dysphagia, recent N/V, + fluid in esophagus)
# Multi-system organ failure- CLAUDIA, shock liver, respiratory failure/VDRF
# Severe non-ischemic cardiomyopathy EF 10%
# Severe Cachexia
-Blood cx's neg to date
-Ordered sputum cx 10/23
-influenza and COVID negative
- Continue cefepime, dose renally adjusted.
-Continue metronidazole, dose adjusted for severe hepatic impairment
- Trend vitals, WBC, oxygen status, LFT's
- Overall poor prognosis
# Conditions E MERCHANT
COPD
pAfib
Nonobstructive CAD
Heart failure with reduced EF 10 to 15%, amyloidosis suspected, status post biventricular ICD placement
Chronic myeloid leukemia
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
PAD s/p right femoral bypass and left BKA
Sigmoid diverticulitis s/p sigmoidectomy
Bladder cancer s/p resections
Hernia repair
Bilateral total knee replacements
Left shoulder replacement
Chief Complaint
-: Pneumonia
Subjective / Review of Systems
Family at bedside. Per family history of dysphagia.
Events overnight noted: Afib with RVR then VT.
Vital Signs / Physical Exam
Vital Signs
Vital Signs
Temp Pulse Resp BP Pulse Ox
98.8 F 67 19 90/77 95
10/24/24 07:00 10/24/24 10:15 10/24/24 10:15 10/24/24 10:15 10/24/24 09:30
Physical Exam
Constitutional: Acutely Ill, Chronically Ill and Cachetic
Cardiovascular: Regular Rate and S1/S2
Pulmonary: Rhonchi (anteriorly) and Other (on vent)
Gastrointestinal: Soft, Non Tender, Non Distended and Normal Bowel Sounds
Genito-Urinary: Espinoza and Clear Urine
Extremities: Cyanosis (right toes)
Skin: Jaundice
Neurological: Other (sedated.)
Objective Data
Lab Data
PT > 100.0 Sec (11.4-14.6) H 10/24/24 04:32
INR > 8.0 H* D 10/24/24 04:32
APTT 51.5 Sec (23.4-35.0) H 10/23/24 12:32
Estimated Creat Clear 12 ml/min 10/24/24 02:05
Lactic Acid 9.2 mmol/L (0.7-2.0) H* 10/24/24 04:32
Total Bilirubin 2.9 mg/dl (0.2-1.3) H 10/24/24 02:05
AST 2632 U/L (17-59) H* 10/24/24 02:05
ALT 1892 U/L (0-50) H* 10/24/24 02:05
Alkaline Phosphatase 107 U/L (38-126) 10/24/24 02:05
Most recent labs reviewed.
Micro Results:
10/23/24 13:29 Influenza Types A & B (ROSALINDA) - Final
Nasal Swab Negative for Influenza A & B, NAAT
Negative results must be combined with clinical observations
and patient history.
Nucleic Acid Amplification test (NAAT)performed on the
[employer] platform.
10/22/24 13:14 Blood Culture - Preliminary
Blood/Venous No Growth in 24 hours- Final report to follow
10/22/24 13:14 Blood Culture - Preliminary
Blood/Venous No Growth in 24 hours- Final report to follow
10/23/24 10:56 MRSA Screen - Pending
Nose
10/22/24 CT a/p: Large dense right lower lobe consolidation with minimal air bronchograms (atelectasis/pneumonia versus mass) and at least moderate right pleural effusion. Some filled with air and fluid extending into the distal thoracic esophagus.
Cannot exclude partial gastric outlet obstruction.
10/22/24 CXR: Endotracheal tube with tip in good position, 6 cm above the abhi. Nasogastric tube, which extends into the left upper quadrant, tip off the inferior to the radiograph, but likely within the stomach. Pulmonary edema pattern with small
moderate right pleural effusion, radiographically stable.
10/23/24: CXR: Right-sided central venous line catheter with tips in the SVC. Small right pleural effusion is again noted. Likely resolution of pulmonary edema pattern.
Care Review
Plan reviewed with: Physician (Dr. Foster)
[2024-10-24 10:56] LABS: Albumin 1.9 g/dl (3.5-5.0); Alkaline Phosphatase 105 U/L (38-126); Blood Urea Nitrogen 66 mg/dl (9-20); Calcium 6.6 mg/dl (8.4-10.2); Carbon Dioxide 9 mmol/L (22-30); Chloride 91 mmol/L (98-107); Glucose 187 mg/dl (70-99); Magnesium 2.1 mg/dl (1.6-2.3); Potassium 4.6 mmol/L (3.5-5.1); Sodium 126 mmol/L (135-145); Total Bilirubin 2.8 mg/dl (0.2-1.3); Total Protein 3.7 g/dl (6.3-8.2)
[2024-10-24 10:59] LABS: ALT (SGPT) 1681 U/L (0-50)
[2024-10-24 11:07] LABS: Lactic Acid 14.9 mmol/L (0.7-2.0)
[2024-10-24 11:12] LABS: Estimated Creatinine Clearance 1 ml/min; eGFR 1.41
[2024-10-24 11:13] LABS: AST (SGOT) 1851 U/L (17-59)
--- NOTE | 2024-10-24 11:29 | W.PN.HOSP.TC ---
Today's Communication/Plan
-
Continue with antibiotics
Continue with IV amiodarone on following telemetry
CODE STATUS changed to electrical cardioversion only but no CPR
Assessment / Plan
Assessment / Plan
Assessment/Plan:
-Shock - multifactorial -possibly secondary to severe cardiomyopathy vs sepsis:
Patient remains with a significant cardiomyopathy with severely low EF of 10%.
Culture data negative with this possibility of right lower lobe pneumonia possibly aspirational based on history.
Continue with vasopressor support.-Currently on Levophed and vasopressin
Continue with empirical antibiotics per ID
-Paroxysmal Atrial fibrillation with rapid ventricular response:
Elevated troponin of 1.54 on 10/22/2024
On Eliquis prior to admission
ICD in place - device interrogation reveals atrial fibrillation with rapid ventricular response
Currently receiving amiodarone -continue
Patient is hemodynamically unstable
-V. tach
-Transient V. tach needing electrical cardioversion. Currently in sinus rhythm
-Continue with amiodarone IV
-Cardiology following
HFrEF: Chronic
Most recent echocardiogram has an ejection fraction of 10-15% -cardiology records suggest possible amyloidosis
Patient has a biventricular ICD -device interrogation reveals atrial fibrillation with rapid ventricular response
Holding all antihypertensive medications
Cautious volume replacement -due to the patient's severely decreased ejection fraction the patient is at risk of pulmonary edema
-Transaminitis: Shock liver
Patient had an AST and ALT of 3506 and 1512 respectively on 10/23/2024
Suspect secondary to shock liver in the setting of hypotension
CT abdomen and pelvis to evaluate for any acute intra-abdominal processes
-CLAUDIA: Oliguric
Anion gap metabolic acidosis -patient had a sodium level of 132, chloride of 97, and bicarb of 10�calculated anion gap 25 on 10/22/2024
Creatinine was 3.4 today
Renally dose all medications
IV fluids
High risk situation for HD or CRRT with hemodynamic instability and ventricular tachycardia
-Hyponatremia-continue to follow
-Right sided pleural effusion:
Chest x-ray conducted on 10/22/2024 showed a small right pleural effusion
-Pulmonary nodule on prior CT scan
Detected on chest CT on 03/06/2024 - 'There are multiple irregular nodules within the right upper lobe and also within the right middle lobe of indeterminate etiology, the largest measuring approximately 1.8 cm.. These could be metastatic in nature
versus infectious or inflammatory.'
Will require further follow-up in the outpatient setting
-Thrombocytopenia-progressive. More than 50,000 currently. Continue to follow.
-Aortic stenosis seen on heart cath conducted on 02/10/2024
-Peripheral vascular disease status post left BKA and prior femorofemoral bypass
-COPD
-History of bladder cancer
-History of CML
CODE STATUS: Ok for electrical cardioversion but no CPR per family
Stress Ulcer Prophylaxis: PPI
DVT Prophylaxis: Heparin
Discussed with tape sewing machine operator.
Discussed with RN.
Discussed with daughter and son on the floor.
Total Critical Care Time_35____ minutes. I was immediately available to the patient and staff. I personally examined, reviewed labs, diagnostic images/reports, interpretations, treatment plans, discussed patient care with other providers and
family or caregivers (if patient is unable to make decisions), entered orders as appropriate and documented the medical record.
Imaging:
-Echocardiogram conducted on June 2024:
Small left ventricular cavity. Severely reduced LV systolic function. LVEF 10-15%.
Global hypokinesis with relative apical sparing.
Moderate concentric LV hypertrophy with speckled appearance.
Stage III diastolic dysfunction.
Biatrial enlargement.
No significant valvular disease.
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
-Chest x-ray conducted on 10/22/2024:
Small right pleural effusion without significant change.
Pulmonary vascularity borderline prominent, stable.
-Abdomen/pelvis CT conducted on 10/22/2024:
FINDINGS: Evaluation overall MARKEDLY LIMITED as a result of numerous factors including beam hardening artifact from the patient's bilateral upper extremities, prominent respiration/motion artifact, lack of oral contrast, lack of intravenous
contrast and paucity of intra-abdominal fat.
CHEST:Partially included on this study is a dense right lower lobe consolidation with some minor air bronchograms and at least moderate volume right pleural effusion. The heart is incompletely included on this study, moderately enlarged. Large
volume fluid material/fluid is seen in the stomach extending into the distal thoracic esophagus lateral which is incompletely included on this study.
ABDOMEN:Calcific atherosclerotic changes of the abdominal aorta are seen without aneurysmal dilatation. There is no gross focal space-occupying in lesion in the liver and spleen, markedly limited. Markedly limited evaluation of the gallbladder is
seen predominantly as a result of beam hardening artifact and respiratory/motion artifact. There are no gross findings to suggest biliary tract dilatation. There is no gross focal renal or adrenal abnormality. The pancreas is markedly atrophic.
There is no significant retroperitoneal lymphadenopathy. Evaluation of the intestinal tract is markedly limited by all of the above factors most prominently only lack of oral contrast and paucity of intra-abdominal/pelvic fat without intestinal
obstruction or free air. There is an apparent distal colonic anastomosis, most likely in the distal sigmoid region and/or rectum.
PELVIS:The urinary bladder is markedly incompletely distended and unopacified, markedly limited. The prostate gland is enlarged with central gland calcifications. There is no significant pelvic lymphadenopathy or significant free fluid.
SKELETON:Partial T12 vertebral compression fracture is stable. There is mild L2 and moderate L5 vertebral compression fractures which although are new in the interval since prior study, may be chronic.
-Follow-up CXR conducted on 10/22/2024:
FINDINGS: Interval insertion of endotracheal tube with tip in good position, 6 cm above the abhi.
Nasogastric tube is present, extending into the left upper quadrant, tip off the inferior to the radiograph, but likely within the stomach, with distal sidehole at the gastroesophageal junction.
Left chest wall battery pack with lead tips over the right atrium, right ventricle, and left paramedian lower chest, stable.
Left shoulder prosthesis is present.
Cardiac silhouette size is enlarged with interstitial pulmonary edema pattern. Small to moderate right pleural effusion. Edema and right effusion appears stable from recent radiograph.
4 mm calcified granuloma in the left midlung. Deformity of the left anterolateral fifth and sixth ribs, likely old fractures. Mild levoconvex scoliosis of the thoracic spine.
Procedures:
-Heart cath conducted on 02/10/2024:
1. Mildly elevated left heart filling pressures with moderate pulmonary hypertension
2. Mild aortic stenosis with mean gradient 7 mmHg. The calculated cardiac output was 4.0.
3. Stable mild CAD as described
4. Anterolateral hypokinesis with EF 37%
Anticipated Discharge: > 48 hours
Subjective/Interval History
-
Date of Service: October 24, 2024
This morning events noted-had brief V. tach requiring cardioversion and initiation of amiodarone again.
Patient currently intubated and sedated. No history is available from the patient.
Objective Data
-
Labs:
Laboratory Results
10/23/24 10/24/24 10/24/24
23:26 02:05 04:32
WBC 12.4 H
Hgb 12.0 L
Hct 33.5 L
Plt Count 62 L
PT > 100.0 H
INR > 8.0 H* D
Sodium 125 L 128 L
Potassium 4.2 4.0
Chloride 89 L 90 L
Carbon Dioxide 18 L 16 L
BUN 72 H 71 H
Creatinine 3.6 H 3.4 H
Glucose 142 H 145 H
Calcium 6.2 L* 7.7 L D
Total Bilirubin 2.9 H
AST 2632 H*
ALT 1892 H*
Alkaline Phosphatase 107
10/24/24 10/24/24 10/24/24
09:56 11:21 18:00
WBC Pending
Hgb Pending
Hct Pending
Plt Count Pending
PT
INR
Sodium 126 L Pending
Potassium 4.6 Pending
Chloride 91 L Pending
Carbon Dioxide 9 L* Pending
BUN 66 H Pending
Creatinine > 28 H* Pending
Glucose 187 H Pending
Calcium 6.6 L* Pending
Total Bilirubin 2.8 H
AST 1851 H*
ALT 1681 H*
Alkaline Phosphatase 105
Vital Signs:
Vital Signs
Temp Pulse Resp BP Pulse Ox
98.2 F 64 18 74/53 95
10/24/24 11:21 10/24/24 10:33 10/24/24 10:33 10/24/24 10:33 10/24/24 09:30
I&O
10/23/24 10/24/24 10/25/24
06:59 06:59 07:59
Intake Total 2994.4 / 3192.5 2332.7 / 2366.5 231.3 / 231.3
Output Total 1550 / 1550
Balance 2994.4 / 3192.5 782.7 / 816.5 211.3 / 211.3
Review of Systems
-
Unable to obtain full review of systems at this time due to: Patient Intubation
Physical Exam
-
General: No Apparent Distress
Respiratory: Clear to Auscultation (Anteriorly) and Non Labored Respirations (on vent); Negative Accessory Resp Muscle Use
Cardiac: Regular Rhythm (now) and S1/S2; Negative Tachycardic
GI: Soft and Normal Bowel Sounds
Neuro: Sedated
Psych: Calm
Data Reviewed
-
Labs: Labs Reviewed by me
[2024-10-24] MEDS: LEVOPHED 258 MG IV ×3 (11:32→21:52)
[2024-10-24] MEDS: SODIUM BICARBONATE 1150 MEQ IV ×2 (11:39→21:12)
[2024-10-24 12:22] LABS: Blood Urea Nitrogen 63 mg/dl (9-20); Calcium 5.9 mg/dl (8.4-10.2); Carbon Dioxide 7 mmol/L (22-30); Chloride 96 mmol/L (98-107); Glucose 164 mg/dl (70-99); Potassium 4.4 mmol/L (3.5-5.1); Sodium 128 mmol/L (135-145)
[2024-10-24] MEDS: CALCIUM GLUCONATE 100 IV (12:26)
[2024-10-24 12:36] LABS: Estimated Creatinine Clearance 1 ml/min; eGFR 1.41
[2024-10-24] MEDS: SODIUM BICARBONATE 100 MEQ IV (12:52)
--- NOTE | 2024-10-24 13:02 | PTCARENOTE ---
1000 labs resulted-Ca+6.6, Ca+ Gluc rider ordered and infusing, Co2-9, Bicarb added to IVF. Creat >28, Dr. Nova and Dr. Foster aware. 1130-Repeat labs drawn, Creat remains >28. Both MDs again notified. 2 amps Bicarb ordered and given. Family
remains at bedside. Levophed gtts titrated up, currently infusing at 16mcg/min to keep SBP >90.
--- NOTE | 2024-10-24 13:51 | W.PN.GI.CBS2 ---
Today's Communication / Plan
-
continue PPI
Assessment / Plan
-
Plan:
continue PPI IV bid
avoid nsaids
no active bleeding
Can keep NGT in only if needed.
will sign off call with questions
Subjective
Subjective
Date of Service: October 24, 2024
Pt remains critically ill. NGT with low amounts of drainage. No overt bleeding (d/w night nurse this morning)
Objective
Data Reviewed
Laboratory Data:
Laboratory Results
10/24/24 11:34
Laboratory Results
PT > 100.0 Sec (11.4-14.6) H 10/24/24 04:32
INR > 8.0 H* D 10/24/24 04:32
APTT 51.5 Sec (23.4-35.0) H 10/23/24 12:32
Magnesium 2.1 mg/dl (1.6-2.3) 10/24/24 09:56
Total Bilirubin 2.8 mg/dl (0.2-1.3) H 10/24/24 09:56
AST 1851 U/L (17-59) H* 10/24/24 09:56
ALT 1681 U/L (0-50) H* 10/24/24 09:56
Alkaline Phosphatase 105 U/L (38-126) 10/24/24 09:56
Vital Signs and I&O:
Vital Signs
Temp Pulse Resp BP Pulse Ox
98.2 F 62 20 97/72 91
10/24/24 11:21 10/24/24 13:30 10/24/24 13:30 10/24/24 13:30 10/24/24 12:31
I&O
10/23/24 10/24/24 10/25/24
06:59 06:59 07:59
Intake Total 2994.4 / 3192.5 2332.7 / 2419.0 798.9 / 798.9
Output Total 1550 / 1550 43 / 43
Balance 2994.4 / 3192.5 782.7 / 869.0 755.9 / 755.9
Physical Exam
Physical Exam
HEENT: Other (intubated)
Neuro: Other (sedated)
[2024-10-24] MEDS: MAXIPIME 1000 MG IV (14:09)
[2024-10-24] MEDS: STERILE WATER FOR INJECTION 10 ML IV (14:09)
--- NOTE | 2024-10-24 16:34 | PTCARENOTE ---
Pt repositioned, partial bath with linen change. Cyanosis to hands/genitals has increased, mottling to buttocks and back.
[2024-10-24] MEDS: NOVOLOG FLEXPEN-LOW RESISTANCE 2 UNITS SC (16:46)
[2024-10-24 16:57] LABS: Glucose - Point of Care 203 mg/dl (70-99)
[2024-10-24 17:27] LABS: Lactic Acid 14.4 mmol/L (0.7-2.0)
[2024-10-24 18:29] LABS: Venous Blood Gas B.E. -11.2 mmol/L (-4 to +4); Venous Blood Gas O2 Sat % 69.4 %; Venous Blood Gas pCO2 40 mmHg (35-48); Venous Blood Gas pH 7.21 (7.32-7.43); Venous Blood Gas pO2 48 mmHg (30-50)
--- NOTE | 2024-10-24 18:31 | W.PN.UPDATE ---
Update Note
Progress Note Update
noted labs, visited pt
cr >28, bicarb 7, L acid 14.4
UOP 20cc/hr
increased pressor requirement
he is not candidate for any form of COSTUMER with high mortality risk
d/w family at bedside
d/w nursing
[2024-10-24 18:33] LABS: Venous Blood Gas O2 Therapy %Oxygen/Room Air 40
[2024-10-24 18:35] LABS: Hematocrit 32.2 % (39.0-52.0); Hemoglobin 10.9 g/dL (13.0-18.0); Mean Corp Hgb Conc. 33.9 g/dL (33.0-37.0); Mean Corpuscular Hgb 32.1 pg (27.0-31.0); Mean Corpuscular Volume 94.7 fL (80.0-94.0); Mean Platelet Volume 10.7 fL (7.4-10.4); Platelet Count 69 10^3/uL (130-400); Red Cell Dist. Width 14.9 % (11.5-14.5); White Blood Cell Count 18.4 10^3/uL (4.8-10.8)
[2024-10-24 18:56] LABS: Calcium 5.4 mg/dl (8.4-10.2); Carbon Dioxide 16 mmol/L (22-30); Chloride 85 mmol/L (98-107); Glucose 203 mg/dl (70-99); Potassium 4.2 mmol/L (3.5-5.1); Sodium 126 mmol/L (135-145)
[2024-10-24 19:27] LABS: Blood Urea Nitrogen 62 mg/dl (9-20)
[2024-10-24] MEDS: CALCIUM GLUCONATE 130 MG IV (19:34)
[2024-10-24 19:47] LABS: Creatine Phosphokinase 6295 U/L (55-170)
[2024-10-24 20:05] LABS: Estimated Creatinine Clearance 13 ml/min; eGFR 18.39
--- NOTE | 2024-10-24 20:46 | PTCARENOTE ---
Pt received start of shift. HR MUTUAL FUND SALES AGENT/CIAIO LUMITE INJECTOR on telemetry. Vent settings AC 20/450/+5/40%. Tolerating. Amio, Levo, Vaso, Fent, Precedex, Bicarb gtts. Occasional movements, not purposeful. Does not follow commands. Occasionally shakes head yes or no but
not appropriately. Eyes yellow. Color of pt is much more sallow. Mottling/ecchymotic penis and scrotum - dark purple. Mottling/ecchymosis observed on pt buttocks and up back.
Calcium low on lab draw, CARDROOM DRAWING RUNNER aware - Ca repletion ordered and administered.
Pulsox not picking up good pleth or giving accurate reading d/t poor circulation. Some family at bedside, discussed plan of care and pt condition.
[2024-10-24 23:43] LABS: Glucose - Point of Care 131 mg/dl (70-99)
[2024-10-25] VITALS (74 sets, daily range): BP systolic 33–123; BP diastolic 22–107; BMI 16.9
[2024-10-25 00:19] LABS: Lactic Acid 12.8 mmol/L (0.7-2.0)
[2024-10-25 00:42] LABS: Blood Urea Nitrogen 62 mg/dl (9-20); Calcium 5.5 mg/dl (8.4-10.2); Carbon Dioxide 14 mmol/L (22-30); Chloride 94 mmol/L (98-107); Glucose 119 mg/dl (70-99); Sodium 132 mmol/L (135-145)
[2024-10-25 00:59] LABS: Estimated Creatinine Clearance 14 ml/min; eGFR 20.61
--- NOTE | 2024-10-25 01:39 | PTCARENOTE ---
Pt continuing to tolerate vent settings as previously documented. Calcium 5.5 on repeat labs, CLINICAL DIETICIAN aware. Family staying overnight.
[2024-10-25] MEDS: CALCIUM GLUCONATE 130 MG IV ×2 (04:18→06:38)
[2024-10-25] MEDS: PITRESSIN 100 IV ×2 (05:00→15:57)
[2024-10-25] MEDS: SUBLIMAZE 100 IV ×2 (05:00→16:47)
[2024-10-25] MEDS: DEXTROSE 50% SYRINGE 12.5 GRAMS IV ×3 (05:33→16:37)
[2024-10-25 05:34] LABS: Venous Blood Gas B.E. -12.7 mmol/L (-4 to +4); Venous Blood Gas HCO3 14.5 mmol/L (22-27); Venous Blood Gas O2 Sat % 76.6 %; Venous Blood Gas pCO2 37 mmHg (35-48); Venous Blood Gas pO2 53 mmHg (30-50)
[2024-10-25 05:36] LABS: Ionized Calcium 0.89 mMOL/L (1.15-1.33)
[2024-10-25 05:40] LABS: Glucose - Point of Care 55 mg/dl (70-99)
[2024-10-25] MEDS: CORDARONE 518 MG IV (05:43)
[2024-10-25 05:47] LABS: Hematocrit 31.5 % (39.0-52.0); Hemoglobin 10.6 g/dL (13.0-18.0); Mean Corp Hgb Conc. 33.7 g/dL (33.0-37.0); Mean Corpuscular Hgb 31.7 pg (27.0-31.0); Mean Corpuscular Volume 94.3 fL (80.0-94.0); Mean Platelet Volume 11.6 fL (7.4-10.4); Platelet Count 59 10^3/uL (130-400); Red Blood Cell Count 3.34 10^6/uL (4.70-6.10); Red Cell Dist. Width 15.1 % (11.5-14.5)
[2024-10-25] MEDS: SOLU-CORTEF 50 MG IV ×3 (05:48→17:46)
[2024-10-25] MEDS: FLAGYL 250 MG 50 IV ×2 (06:01→14:17)
[2024-10-25 06:04] LABS: Glucose - Point of Care 337 mg/dl (70-99)
[2024-10-25 06:04] LABS: Lactic Acid 14.4 mmol/L (0.7-2.0)
[2024-10-25 06:05] LABS: Fibrinogen 161 MG/DL (199-459)
[2024-10-25 06:10] LABS: Blood Urea Nitrogen 59 mg/dl (9-20); Calcium 6.8 mg/dl (8.4-10.2); Carbon Dioxide 11 mmol/L (22-30); Chloride 93 mmol/L (98-107); Glucose 46 mg/dl (70-99); Magnesium 1.9 mg/dl (1.6-2.3); Phosphorus 7.5 mg/dl (2.5-4.5); Potassium 4.3 mmol/L (3.5-5.1); Sodium 129 mmol/L (135-145)
[2024-10-25 06:20] LABS: Estimated Creatinine Clearance 15 ml/min; eGFR 21.47
--- NOTE | 2024-10-25 06:20 | PTCARENOTE ---
Pt extremities and abdomen becoming more mottled/ecchymotic. Extremeties getting cooler - wrapped in warm blankets. R upper extremity now weeping. Ca repletion. AM labs drawn. CHG cloth bath, scalp dressing changed.
AM blood glucose check 55, 1/2 amp dextrose per order - see OCT. Recheck 15 min later 337.
[2024-10-25 06:24] LABS: PT > 100.0 Sec (11.4-14.6)
[2024-10-25 06:25] LABS: INR > 8.0
[2024-10-25] MEDS: NOVOLOG FLEXPEN-LOW RESISTANCE SC ×3 (06:28→18:07)
[2024-10-25] MEDS: NSS (PRESERVATIVE FREE) 10 ML IV (07:40)
[2024-10-25] MEDS: PROTONIX IV 40 MG IV (07:40)
[2024-10-25] MEDS: LEVOPHED 258 MG IV ×3 (07:47→19:35)
[2024-10-25 08:10] LABS: Glucose - Point of Care 77 mg/dl (70-99)
--- NOTE | 2024-10-25 08:32 | W.PN.HOSP.TC ---
Today's Communication/Plan
-
Continue with antibiotics
Continue with vasopressor support. Add phenylephrine if needed.
Continue with IV steroids.
Continue with IV amiodarone.
Assessment / Plan
Assessment / Plan
Assessment/Plan:
-Shock - multifactorial -possibly secondary to severe cardiomyopathy vs sepsis:
Patient remains with a significant cardiomyopathy with severely low EF of 10%.
Culture data negative with this possibility of right lower lobe pneumonia possibly aspirational based on history.
Continue with vasopressor support.-Currently on Levophed and vasopressin. Now Levophed at maximum dose.
Continue with empirical antibiotics per ID
-Paroxysmal Atrial fibrillation with rapid ventricular response:
Elevated troponin of 1.54 on 10/22/2024
On Eliquis prior to admission
ICD in place - device interrogation reveals atrial fibrillation with rapid ventricular response
Currently receiving amiodarone -continue
Patient is hemodynamically unstable
-V. tach
-Transient V. tach needing electrical cardioversion. Currently in sinus rhythm. No recurrence
-Continue with amiodarone IV
-Cardiology following
HFrEF: Chronic
Most recent echocardiogram has an ejection fraction of 10-15% -cardiology records suggest possible amyloidosis
Patient has a biventricular ICD -device interrogation reveals atrial fibrillation with rapid ventricular response
Holding all antihypertensive medications
Cautious volume replacement -due to the patient's severely decreased ejection fraction the patient is at risk of pulmonary edema
Patient weight increasing. Not requiring higher FiO2. Currently at 40%.
-Transaminitis: Shock liver
Patient had an AST and ALT of 3506 and 1512 respectively on 10/23/2024
Suspect secondary to shock liver in the setting of hypotension
CT abdomen and pelvis to evaluate for any acute intra-abdominal processes
-Severe lactic acidosis-possibly combination of shock liver , poor hemodynamics and CLAUDIA. VBG shows worsening metabolic acidosis with pH of 7.2
-CLAUDIA: Oliguric
Anion gap metabolic acidosis
Creatinine was 2.9 today
Renally dose all medications
High risk situation for HD or CRRT with hemodynamic instability and ventricular tachycardia
-Hyponatremia-continue to follow
-Right sided pleural effusion:
Chest x-ray conducted on 10/22/2024 showed a small right pleural effusion
-Pulmonary nodule on prior CT scan
Detected on chest CT on 03/06/2024 - 'There are multiple irregular nodules within the right upper lobe and also within the right middle lobe of indeterminate etiology, the largest measuring approximately 1.8 cm.. These could be metastatic in nature
versus infectious or inflammatory.'
Will require further follow-up in the outpatient setting
-Thrombocytopenia-progressive. More than 50,000 currently. Continue to follow.
-Coagulopathy with INR more than 8 from shock liver
-Possible DIC with elevated INR and low fibrinogen. Treat the underlying cause and continue with supportive measures. No evidence of active bleeding , if so will consider blood product support and cryoprecipitate.
-Aortic stenosis seen on heart cath conducted on 02/10/2024
-Peripheral vascular disease status post left BKA and prior femorofemoral bypass
-COPD
-History of bladder cancer
-History of CML
CODE STATUS: Ok for electrical cardioversion but no CPR per family
Stress Ulcer Prophylaxis: PPI
DVT Prophylaxis: Patient on auto anticoagulated with shock liver with INR more than 8
Discussed with armature varnisher.
Discussed with RN.
Discussed with family at bedside
Total Critical Care Time_35____ minutes. I was immediately available to the patient and staff. I personally examined, reviewed labs, diagnostic images/reports, interpretations, treatment plans, discussed patient care with other providers and
family or caregivers (if patient is unable to make decisions), entered orders as appropriate and documented the medical record.
Imaging:
-Echocardiogram conducted on June 2024:
Small left ventricular cavity. Severely reduced LV systolic function. LVEF 10-15%.
Global hypokinesis with relative apical sparing.
Moderate concentric LV hypertrophy with speckled appearance.
Stage III diastolic dysfunction.
Biatrial enlargement.
No significant valvular disease.
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
-Chest x-ray conducted on 10/22/2024:
Small right pleural effusion without significant change.
Pulmonary vascularity borderline prominent, stable.
-Abdomen/pelvis CT conducted on 10/22/2024:
FINDINGS: Evaluation overall MARKEDLY LIMITED as a result of numerous factors including beam hardening artifact from the patient's bilateral upper extremities, prominent respiration/motion artifact, lack of oral contrast, lack of intravenous
contrast and paucity of intra-abdominal fat.
CHEST:Partially included on this study is a dense right lower lobe consolidation with some minor air bronchograms and at least moderate volume right pleural effusion. The heart is incompletely included on this study, moderately enlarged. Large
volume fluid material/fluid is seen in the stomach extending into the distal thoracic esophagus lateral which is incompletely included on this study.
ABDOMEN:Calcific atherosclerotic changes of the abdominal aorta are seen without aneurysmal dilatation. There is no gross focal space-occupying in lesion in the liver and spleen, markedly limited. Markedly limited evaluation of the gallbladder is
seen predominantly as a result of beam hardening artifact and respiratory/motion artifact. There are no gross findings to suggest biliary tract dilatation. There is no gross focal renal or adrenal abnormality. The pancreas is markedly atrophic.
There is no significant retroperitoneal lymphadenopathy. Evaluation of the intestinal tract is markedly limited by all of the above factors most prominently only lack of oral contrast and paucity of intra-abdominal/pelvic fat without intestinal
obstruction or free air. There is an apparent distal colonic anastomosis, most likely in the distal sigmoid region and/or rectum.
PELVIS:The urinary bladder is markedly incompletely distended and unopacified, markedly limited. The prostate gland is enlarged with central gland calcifications. There is no significant pelvic lymphadenopathy or significant free fluid.
SKELETON:Partial T12 vertebral compression fracture is stable. There is mild L2 and moderate L5 vertebral compression fractures which although are new in the interval since prior study, may be chronic.
-Follow-up CXR conducted on 10/22/2024:
FINDINGS: Interval insertion of endotracheal tube with tip in good position, 6 cm above the abhi.
Nasogastric tube is present, extending into the left upper quadrant, tip off the inferior to the radiograph, but likely within the stomach, with distal sidehole at the gastroesophageal junction.
Left chest wall battery pack with lead tips over the right atrium, right ventricle, and left paramedian lower chest, stable.
Left shoulder prosthesis is present.
Cardiac silhouette size is enlarged with interstitial pulmonary edema pattern. Small to moderate right pleural effusion. Edema and right effusion appears stable from recent radiograph.
4 mm calcified granuloma in the left midlung. Deformity of the left anterolateral fifth and sixth ribs, likely old fractures. Mild levoconvex scoliosis of the thoracic spine.
Procedures:
-Heart cath conducted on 02/10/2024:
1. Mildly elevated left heart filling pressures with moderate pulmonary hypertension
2. Mild aortic stenosis with mean gradient 7 mmHg. The calculated cardiac output was 4.0.
3. Stable mild CAD as described
4. Anterolateral hypokinesis with EF 37%
Anticipated Discharge: > 48 hours
Subjective/Interval History
-
Date of Service: October 25, 2024
No significant overnight events.
This morning blood pressure had dropped so Levophed got bumped up to maximum dose of 20 mcg.
Sedated on vent. Unresponsive.
Objective Data
-
Labs:
Laboratory Results
10/24/24 10/24/24 10/25/24
18:22 23:33 05:24
WBC 20.0 H
Hgb 10.6 L
Hct 31.5 L
Plt Count 59 L
PT > 100.0 H
INR > 8.0 H*
Sodium 132 L 129 L
Potassium 4.0 4.3
Chloride 94 L 93 L
Carbon Dioxide 14 L* 11 L*
BUN 62 H 59 H
Creatinine 3.3 H 3.0 H 2.9 H
Glucose 119 H 46 L*
Calcium 5.5 L* 6.8 L*
Vital Signs:
Vital Signs
Temp Pulse Resp BP Pulse Ox
97.7 F 54 20 74/49 95
10/25/24 08:22 10/25/24 08:30 10/25/24 08:30 10/25/24 08:30 10/25/24 05:00
I&O
10/24/24 10/25/24 10/26/24
05:59 06:59 06:59
Intake Total 273.6 / 273.6
Output Total 60 / 60
Balance 213.6 / 213.6
Review of Systems
-
Unable to obtain full review of systems at this time due to: Patient Intubation
Physical Exam
-
General: No Apparent Distress
Respiratory: Non Labored Respirations and Decreased Breath Sounds (Right lower zone on the anterior lateral auscultation; on 40% FiO2 on the vent); Negative Wheezes or Accessory Resp Muscle Use
Cardiac: Regular Rhythm (Paced rhythm on monitor) and S1/S2
Musculoskeletal: Other (Slight anasarca)
Skin: Other (Bruising in multiple areas)
Neuro: Sedated
Psych: Calm
Data Reviewed
-
Labs: Labs Reviewed by me
--- NOTE | 2024-10-25 08:57 | PTCARENOTE ---
Rec'd pt at 0700, pt sedate on Fent/Dex gtts on vent. Cyanosis to hands/genitals/ears and mottling to back/buttocks has progressed/worsened from yesterday, MD aware. Monitor V-paced, Amio gtts infusing at 0.5mg/min. Vaso and Levo gtts infusing,
Levophed increased to 20mcg/min to keep MAP >65. Lungs dim, pox unable to read due to cyanosis. +hypo BS, abd soft/nt. NGT to LIWS, brown/green drainage. Espinoza draining ryland urine-output 20-30/hr. Daughter at bedside, updated.
[2024-10-25 09:57] LABS: Glucose - Point of Care 57 mg/dl (70-99)
--- NOTE | 2024-10-25 10:12 | PTCARENOTE ---
Blood glucose-57, 1/2 amp D50 given, repeat in 15min 199. Pt asymptomatic. Blood glucose levels being drawn from [facility] for accurate results-pt receiving high dose pressors and has peripheral cyanosis.
--- NOTE | 2024-10-25 10:14 | W.PN.INTV ---
Addendum entered and electronically signed by Cassie Foster MD 10/25/24 18:34:
Throughout the day, patient continued to decline with increasing pressor requirement and cyanosis. Third pressor was added and blood pressure started to drop into 40's. I met with family at bedside again (Son and Daughter) and updated about imminent
cardiac arrest. Family opted to change code status to DNR and would not want to subject the patient to Defibrillation/Cardioversion etc.
Code status changed to DNR
Patient has AICD in place, will see if we can get it turned off so that it does not deliver shocks.
Original Note:
Today's Communication / Plan
Recommendations
- IV magnesium sulfate, 1 g
-Follow-up VBG, renal and liver panel around 4 PM today
-Continue ongoing goals of care discussion. With worsening lactate, increasing cyanosis of extremities, patient unlikely to survive this hospitalization.
Assessment
-
71-year-old gentleman with known history of nonischemic cardiomyopathy, ejection fraction 10 to 15%, presented to emergency room with weakness, nausea vomiting going on for 3 to 4 days. Patient reported essentially no p.o. intake for 4 days with
frequent episodes of nausea vomiting and feeling weak and dizzy. In the emergency room patient was noted to be hypotensive as well as in acute renal failure with acidosis. Patient also was noted to have tachyarrhythmias and on interrogation of his
pacemaker was noted to have paroxysmal atrial fibrillation with rapid ventricular rate. He was started on amiodarone after evaluation by cardiology and was admitted to ICU for hypotension. He had brief improvement in hemodynamics after fluid
resuscitation but developed more acidotic and hypotensive requiring intubation and mechanical ventilation. Patient required pressor support and developed anuric acute kidney injury. Stay was further complicated by developing coagulopathy, acute
liver injury.
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 After initial response patient's rhythm changed to ventricular tachycardia and drop blood pressure
down to 50 x 30, he was cardioverted with 125 J and that he broke back to a normal sinus rhythm.
last 24 hrs:
Patient had episode of A-fib with heart requiring amiodarone push, followed by deterioration into VT electrical cardioversion 10/24
CODE STATUS changed to modified DNR, no chest compressions however okay to cardiovert/defibrillator per family, 10/24
Fluid balance, + 2.6 L
Hemoglobin stable at 10.6, white count up to 20,000 and platelet of 59
INR continues to be above 8 with PTT greater than 100 and fibrinogen around 161
VBG, 7.2, 37 on volume control, 450, 20, 40% on PEEP of 5
Sodium at 129, bicarb further down to 11, BUN/creatinine 59 x 2.9, lactate up to 14.4.
Current infusions, Levophed at 20, vasopressin at 0.03 sedation with Precedex and fentanyl.
#1. Shock, likely mixed with underlying severe cardiomyopathy and possibly sepsis. Also patient was quite hypovolemic on exam and likely was hypotensive and hypovolemic for few days prior to presentation
-S/p IV fluid resuscitation
-Currently on Levophed and vasopressin
-Continue broad-spectrum antibiotics, infectious disease service on case
-Continue stress dose steroids
-Lactate continues to be elevated
-Worsening multiorgan failure with worsening CLAUDIA, acute liver injury, worsening coagulopathy
-Very poor prognosis
-Follow-up on cultures
#2. Acute hypoxic respiratory failure in the setting of severe metabolic acidosis
-S/p intubation and mechanical ventilation. Prior to intubation, VBG showed pH of 7.02, CO2 of 48.
-Continue current ventilatory settings 450, 20, 5.
#3. CLAUDIA with anuria
-S/p right IJ trialysis catheter placement
-Nephrology service consulted, currently too unstable for renal replacement therapy
-Monitor input and output closely, urine output has fluctuated between 10 to 30 mL/h. Continue to monitor potassium, volume status and pH
#4. Acute liver injury with worsening coagulopathy, question DIC, hypoglycemia
-Patient has worsening liver function likely related to hypotension and shock liver. INR has further increased increased. Platelet count dropping without overt bleeding
-Vitamin K 10 mg IVPB given
-DC antiplatelets, anticoagulants
-Off-and-on needed dextrose infusion
-Fibrinogen plateaued around 160s
#5. Nausea vomiting with partial gastric outlet obstruction with likely low-grade GI bleed.
-Continue NG tube to intermittent suction, coffee-ground output noted
-Continue PPI twice daily
-Monitor CBC closely
#6. A-fib, RVR with hemodynamic instability complicated by ventricular tachycardia status post electrical cardioversion on 10/24
-AICD in place
-Hold Eliquis, cardiology service on case
-Amiodarone infusion
-Keep potassium above 4 and magnesium above 2
#7. Nonischemic cardiomyopathy with ejection fraction 10 to 15%, suspect amyloidosis as per cardiology records.
-Status post biventricular ICD, interrogation shows atrial fibrillation with RVR.
-Withhold all antihypertensive medications, cautious volume replacement
#8. Small right-sided pleural effusion
-Appears to be chronic, previous x-rays also show similar effusion (s/p thoracentesis in February/2024, suspect he has some degree of trapped lung leading to chronic small pleural effusion)
-Continue to monitor for now, less likely source of sepsis
#9. Family update
-Updated patient's daughter, son at bedside regarding overall very poor prognosis considering multiorgan dysfunction, continued shock and developing coagulopathy. Will continue to update the family. We also discussed the options of full code,
DNR/DNI as well as comfort focused approach.
Other medical comorbidities:
-Peripheral vascular disease status post left BKA and prior femorofemoral bypass
-COPD
-History of bladder cancer
-History of CML
-Pulmonary nodule on prior CT scan, need ongoing surveillance and outpatient follow-up with pulmonary clinic
CODE STATUS: Full currently. Explained to the family at bedside regarding developing multiorgan failure. Patient is critically ill and might not survive this current severe illness.
Critical Care time 50 mins -- The patient is admitted for acute critical illness for the treatment of vital organ failure and/or prevention of further life-threatening conditions. Total care includes time spent in review of history, physical exam,
medications, hemodynamic/ventilator parameters, laboratory data, imaging and discussion with house staff, pharmacy, respiratory therapy, manufacturing assembler, and nursing.
ECHO 10/23:
-Limited echocardiogram for reassessment of LVEF.
-Left ventricle is small in size. Left ventricular ejection fraction is
approximately 10%. Severe global hypokinesis with septal dyskinesis. Moderate
concentric left ventricular hypertrophy.
-Right ventricle not well-visualized, but appears to be grossly normal in size.
Severely reduced right ventricular systolic function. ICD wire seen in right
ventricle.
Subjective Dataa
Subjective Data
Date of Service:
Date of Service: October 25, 2024
Subjective:
Patient currently intubated, sedated and mechanically ventilated.
Review of Systems
General: Unobtainable - Pat Unresp
Objective Data
Data Reviewed
Vital Signs / I&O / Oxygen:
Vital Signs
Temp Pulse Resp BP Pulse Ox
97.7 F 60 20 112/78 95
10/25/24 08:22 10/25/24 10:04 10/25/24 10:04 10/25/24 10:04 10/25/24 05:00
Intake and Output
10/24/24 10/25/24 10/26/24
05:59 06:59 06:59
Intake Total 524.6 / 524.6
Output Total 145 / 145
Balance 379.6 / 379.6
SaO2 [A/C] 97
SaO2 95
Physical Exam
General: Comfortable and Other (Very cachectic appearing, bitemporal wasting)
HEENT: Normocephalic
Cardiovascular: S1-S2
Respiratory: Clear
GI: Soft
Neurology: Other (Sedated)
Skin: Cyanosis (Worsening cyanosis both hands now all the way up to mid forearm, cyanotic looking lower extremity as well, stump still looks okay.) and Other (Extremities are cold, fingertips have purplish hue without akil cyanosis)
Labs/Micro/Reports
Lab Data
10/25/24 05:24
10/25/24 05:24
Laboratory Results
10/25/24
05:24
PT > 100.0 H
INR > 8.0 H*
Microbiology
10/23/24 10:56 Nose MRSA Screen - Final
No Methicillin Resistant Staphylococcus aureus isolated.
10/22/24 13:14 Blood/Venous Blood Culture - Preliminary
No Growth in 48 hours- Final report to follow
10/22/24 13:14 Blood/Venous Blood Culture - Preliminary
No Growth in 48 hours- Final report to follow
10/23/24 13:29 Nasal Swab Influenza Types A & B (ROSALINDA) - Final
Negative for Influenza A & B, NAAT
Negative results must be combined with clinical observations
and patient history.
Nucleic Acid Amplification test (NAAT)performed on the
[employer], [place] platform.
[2024-10-25 10:21] LABS: Glucose - Point of Care 199 mg/dl (70-99)
[2024-10-25] MEDS: MAGNESIUM SULFATE 102 GRAMS IV (10:45)
--- NOTE | 2024-10-25 11:14 | W.PN.ID1 ---
Date of Service
Date of Service: October 25, 2024
Today's Communication
Grim prognosis.
Assessment / Plan
# Shock - septic and/or cardiogenic shock, remains on 2 pressors
# Aspiration pneumonia (h/o dysphagia, recent N/V, + fluid in esophagus)
# Multi-system organ failure- CLAUDIA, shock liver, respiratory failure/VDR;, deteriorating
# Severe non-ischemic cardiomyopathy EF 10%
# Severe Cachexia
-Blood cx's neg to date
-influenza and COVID negative
- Continue cefepime (d3) for now , dose renally adjusted.
-Continue metronidazole (d3) for now , dose adjusted for severe hepatic impairment
- Trend vitals, WBC, oxygen status, LFT's
- Overall grim prognosis
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
COPD
pAfib
Nonobstructive CAD
Heart failure with reduced EF 10 to 15%, amyloidosis suspected, status post biventricular ICD placement
Chronic myeloid leukemia
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
PAD s/p right femoral bypass and left BKA
Sigmoid diverticulitis s/p sigmoidectomy
Bladder cancer s/p resections
Hernia repair
Bilateral total knee replacements
Left shoulder replacement
Chief Complaint
-: Pneumonia
Subjective / Review of Systems
Critically ill.
Vital Signs / Physical Exam
Vital Signs
Vital Signs
Temp Pulse Resp BP Pulse Ox
97.7 F 65 20 105/80 95
10/25/24 08:22 10/25/24 11:00 10/25/24 11:00 10/25/24 11:00 10/25/24 05:00
Physical Exam
Constitutional: Acutely Ill and Chronically Ill
Cardiovascular: Regular Rate and S1/S2
Pulmonary: Rhonchi (anteriorly) and Other (on vent)
Gastrointestinal: Soft, Non Tender, Non Distended and Decreased Bowel Sounds
Extremities: Cyanosis (right foot)
Skin: Jaundice
Neurological: Other (sedated.)
Objective Data
Lab Data
Lab Results
10/25/24 05:24
PT > 100.0 Sec (11.4-14.6) H 10/25/24 05:24
INR > 8.0 H* 10/25/24 05:24
APTT 51.5 Sec (23.4-35.0) H 10/23/24 12:32
Estimated Creat Clear 15 ml/min 10/25/24 05:24
Lactic Acid 14.4 mmol/L (0.7-2.0) H* 10/25/24 05:24
Total Bilirubin 2.8 mg/dl (0.2-1.3) H 10/24/24 09:56
AST 1851 U/L (17-59) H* 10/24/24 09:56
ALT 1681 U/L (0-50) H* 10/24/24 09:56
Alkaline Phosphatase 105 U/L (38-126) 10/24/24 09:56
Most recent labs reviewed.
Micro Results:
10/23/24 10:56 MRSA Screen - Final
Nose No Methicillin Resistant Staphylococcus aureus isolated.
10/22/24 13:14 Blood Culture - Preliminary
Blood/Venous No Growth in 48 hours- Final report to follow
10/22/24 13:14 Blood Culture - Preliminary
Blood/Venous No Growth in 48 hours- Final report to follow
10/23/24 13:29 Influenza Types A & B (ROSALINDA) - Final
Nasal Swab Negative for Influenza A & B, NAAT
Negative results must be combined with clinical observations
and patient history.
Nucleic Acid Amplification test (NAAT)performed on the
[employer] platform.
10/22/24 CT a/p: Large dense right lower lobe consolidation with minimal air bronchograms (atelectasis/pneumonia versus mass) and at least moderate right pleural effusion. Some filled with air and fluid extending into the distal thoracic esophagus.
Cannot exclude partial gastric outlet obstruction.
10/22/24 CXR: Endotracheal tube with tip in good position, 6 cm above the abhi. Nasogastric tube, which extends into the left upper quadrant, tip off the inferior to the radiograph, but likely within the stomach. Pulmonary edema pattern with small
moderate right pleural effusion, radiographically stable.
10/23/24: CXR: Right-sided central venous line catheter with tips in the SVC. Small right pleural effusion is again noted. Likely resolution of pulmonary edema pattern.
--- NOTE | 2024-10-25 11:35 | W.PN.NEPH.PH ---
Today's Communication / Plan
-
see plan
Assessment/Plan
-
Impression:
Hemodynamic collapse (Shock): cardiogenic vs septic)
CLAUDIA
Gap metabolic acidosis (25)
Non Ischemic ORTHOTIST EF 10-15%/defibrillator
Paroxysmal AFIB
BPH
History of intermittent ventricular tachycardia/SVT
Vomiting
Lower back
Positive troponin
Transaminitis (likely due to shock liver)
History of bladder cancer
History of CML
COPD
PAD with history of stent
Left below-knee amputation
Plan:
CLAUDIA:
-Likely due to underlying shock with hemodynamic instability (cardiogenic versus septic shock)
cr improving to 2.9, non oliguric with zamora
Met acidosis from lactic acidosis on bicarb IVF
on dual pressors with peripheral cyanosis
multiple electrolyte issues, cont suppotive care
not a candidate for any form of POST EXCHANGE MANAGER with high mortality risk-family understands
remains intubated
Dose all antibiotics for GFR less than 10 cc/min
sig coagulopathy and shock liver
guarded prognosis
CC time spent 31min
d/w nursing
-
-
Date of Service: October 25, 2024
CC / HPI / ROS
-
Chief Complaint:
CLAUDIA, met acidosis
History of Present Illness:
cr down to 2.9,non oliguric,
on NGT with suction for GOO
on 2 pressors, intubated
met acidosis is stable at 11, L acid high at 14.4
on 10/23 night Afib with RVR, later VT required shockx1, now back on amio gtt, paced rhythm
LFTs improving but INR >8
Review of Systems:
sedated,intubated
peripheral cyanosis progressing
Labs
-
Labs:
WBC 20.0 10^3/uL (4.8-10.8) H 10/25/24 05:24
RBC 3.34 10^6/uL (4.70-6.10) L 10/25/24 05:24
Hgb 10.6 g/dL (13.0-18.0) L 10/25/24 05:24
Hct 31.5 % (39.0-52.0) L 10/25/24 05:24
Plt Count 59 10^3/uL (130-400) L 10/25/24 05:24
eGFR 21.47 10/25/24 05:24
Phosphorus 7.5 mg/dl (2.5-4.5) H 10/25/24 05:24
Ebc-E-Vfzbusuuosz Pept > 94409 pg/ml 10/22/24 11:17
Physical Exam
-
Vital Signs:
Vital Signs
Temp Pulse Resp BP Pulse Ox
97.7 F 65 20 105/80 95
10/25/24 08:22 10/25/24 11:00 10/25/24 11:00 10/25/24 11:00 10/25/24 05:00
Cardiovascular:: Regular rate and rhythm
Lung Excursion:: Abnormal (decreased)
Abdomen:: Nontender and Soft
Extremity Edema:: None: Right:
Zamora Catheter: No
Other Findings::
left BKA
extremities peripheral cyanosis worsening
[2024-10-25 12:07] LABS: Glucose - Point of Care 116 mg/dl (70-99)
--- NOTE | 2024-10-25 12:40 | PTCARENOTE ---
No changes in pt assessment. Pt's 2 daughters and son at bedside. Daughters updated this am by Dr. Foster.
--- NOTE | 2024-10-25 12:53 | W.PN.CD ---
Today's Communication / Plan
-
-Continue to have worsening multiorgan system failure; CLAUDIA, liver failure, rhabdo (CPK 6295), lactate increasing (now up to 14), coagulopathy (INR >8.0), bicarbonate decreasing (now down to 11), WBC increasing (20.0), worsening thrombocytopenia
(platelets now down to 59).
-Remains on pressors; prognosis poor.
-Patient V paced; relatively stable on amiodarone drip--continue, as this is the only thing keeping his heart rhythm relatively stable.
Impression / Plan
-
Septic/cardiogenic Shock:
-this diagnosis is threat to life
-Continue to have worsening multiorgan system failure; CLAUDIA, liver failure, rhabdo (CPK 6295), lactate increasing (now up to 14), coagulopathy (INR >8.0), bicarbonate decreasing (now down to 11), WBC increasing (20.0), worsening thrombocytopenia
(platelets now down to 59).
-Intubated.
-Remains on pressors; prognosis poor.
Chronic HFrEF/NICM EF 10-15%/VT:
-patient with suspected amyloid
-Bi-V ICD in place- interrogated and shows AFIB 120-130 BPM, AFIB burden 0.2%, 247 high vent rates AFIB with RVR, Apaced <1%, BI-V paced <4% per device nurse in office
-Echocardiogram with unchanged cardiac function (EF 10-15%).
-on BB, Jardiance as OP
-Patient went into atrial fibrillation with RVR 2 nights ago which then degenerated into VT; amiodarone was discontinued yesterday due to concern of abnormal LFTs.
-Patient given amiodarone bolus and defibrillated for hemodynamic instability.
-Patient V paced; relatively stable on amiodarone drip--continue, as this is the only thing keeping his heart rhythm relatively stable.
Abnormal troponin:
-suspect acute, non-ischemic myocardial injury in setting of shock
AFIB with RVR/VT:
-In sinus rhythm after defibrillation; V-paced.
-Was on Eliquis for anticoagulation; discontinued given coagulopathy.
-Continue amiodarone drip as above.
-Continue monitoring manager.
CLAUDIA:
-in setting of shock
-Poor candidate for HD as per Nephrology.
Abnormal LFT's:
-worsening
-in setting of shock
Gastric outlet obstruction:
-GI following
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
LBBB -chronic
COPD
Bladder CA
CT abd/pelvis 10/22/24:MARKEDLY LIMITED EVALUATION as a result of numerous factors, as detailed above.��
Large dense right lower lobe consolidation with minimal air bronchograms (atelectasis/pneumonia
versus mass) and at least moderate right pleural effusion.��
Some filled with air and fluid extending into the distal thoracic esophagus. Cannot exclude partial
gastric outlet obstruction.��
No intestinal obstruction or free air
Physical Exam
Vital Signs/Labs
Vital Signs
Temp Pulse Resp BP Pulse Ox
96.8 F L 56 20 99/80 95
10/25/24 11:51 10/25/24 12:30 10/25/24 12:30 10/25/24 12:30 10/25/24 05:00
10/24/24 10/25/24 10/26/24
05:59 06:59 06:59
Actual Weight
10/25/24 05:24
PT > 100.0 Sec (11.4-14.6) H 10/25/24 05:24
INR > 8.0 H* 10/25/24 05:24
APTT 51.5 Sec (23.4-35.0) H 10/23/24 12:32
Magnesium 1.9 mg/dl (1.6-2.3) 10/25/24 05:24
10/22/24
11:17
Oru-L-Xtdvkddqoyg Pept > 26181
LAB Results
10/22/24 10/22/24 10/22/24
11:17 16:25 20:47
Troponin I 1.540 H* 1.750 H* 2.210 H* D
10/23/24 10/23/24 10/23/24
00:18 06:14 11:25
Troponin I 2.230 H* 3.360 H* D 4.170 H*
10/24/24
06:32
Troponin I 1.600 H*
Physical Exam
Constitutional: Other
Cardiovascular: Rhythm & rate is regular, Systolic murmur absent, S1S2 is normal and Other (Cold, cyanotic right foot)
Respiratory: Other (Coarse bilateral breath sounds, on vent)
Neuro/Psych: Other (Intubated/sedated)
Other: Skin (Cold extremities, cyanotic right foot)
Data Reviewed
-
Date of Service: October 25, 2024
EKG: Tracing Personally Visualized and interpreted (Telemetry: V-paced)
Echo: Tracing Personally Visualized and interpreted (EF 10%)
X-Ray/CT/US/MRI/NUC/PET: Discussed with Nurse and Discussed with Family (Daughter is at bedside)
Labs: Labs Reviewed by me
Critical Care Time (in minutes): 46
[2024-10-25] MEDS: STERILE WATER FOR INJECTION 10 ML IV (13:47)
[2024-10-25] MEDS: MAXIPIME 1000 MG IV (13:47)
[2024-10-25 14:03] LABS: Glucose - Point of Care 82 mg/dl (70-99)
[2024-10-25 16:32] LABS: Albumin 1.4 g/dl (3.5-5.0); Alkaline Phosphatase 144 U/L (38-126); Blood Urea Nitrogen 62 mg/dl (9-20); Calcium 6.1 mg/dl (8.4-10.2); Carbon Dioxide 11 mmol/L (22-30); Chloride 86 mmol/L (98-107); Direct Bilirubin 2.8 mg/dl (0.0-0.4); Glucose 31 mg/dl (70-99); Potassium 5.4 mmol/L (3.5-5.1); Sodium 124 mmol/L (135-145); Total Bilirubin 4.4 mg/dl (0.2-1.3); Total Protein 3.6 g/dl (6.3-8.2)
[2024-10-25 16:33] LABS: Lactic Acid 16.9 mmol/L (0.7-2.0)
[2024-10-25 16:40] LABS: Estimated Creatinine Clearance 2 ml/min; eGFR 1.41
[2024-10-25 16:42] LABS: ALT (SGPT) 1236 U/L (0-50); AST (SGOT) 1375 U/L (17-59)
[2024-10-25 17:05] LABS: Glucose - Point of Care 214 mg/dl (70-99)
--- NOTE | 2024-10-25 17:17 | PTCARENOTE ---
9192-Rec'd call from lab on critical values. Blood glucose 31- 1/2 amp dextrose given, 15min repeat 214. Dr. Foster notified of labs, no new orders. Levophed max at 30mcg/min, Willam gtts restarted at 20mcg/min. MD and family updated.
[2024-10-25 18:01] LABS: Glucose - Point of Care 97 mg/dl (70-99)
--- NOTE | 2024-10-25 18:53 | PTCARENOTE ---
~1820-Family requested to speak with Dr. Foster, decision made to make pt full DNR, but they do not wish to withdraw care at this time. Discussed possibility of AICD firing, decision also made to have AICD deactivated with family in agreement.
[facility] contacted to discuss process of deactivation of AICD, RN to tape magnet in place on AICD at this time and contact device's company to come out to deactivate-information passed on to hourly shift manager RN. 1844-Magnet taped to AICD with nightshift
RN, family aware. Emotional support given. Willam/Vaso/Levo currently at [place].
--- NOTE | 2024-10-25 20:35 | W.PN.UPDATE ---
Update Note
Progress Note Update
2034- Family expressed they would like to move to comfort measures. Patient is currently on fentanyl gtt, will transition to comfort measures protocol with prn fentanyl and gtt. They would like the patient terminally extubated.
[2024-10-25] MEDS: PROTONIX IV IV (21:02)
[2024-10-25] MEDS: SODIUM BICARBONATE IV (21:02)
[2024-10-25] MEDS: NSS (PRESERVATIVE FREE) IV (21:02)
--- NOTE | 2024-10-25 23:45 | W.PN.DEATH ---
Pronouncement of
-
Called to see patient to pronounce.
No spontaneous heart tones or respirations noted.
Patient not responsive to verbal stimuli.
Patient is pronounced .
Time of : 21:17
Date of : 10/25/24
Cause of : acute hypoxic respiratory failure, septic shock
Family Notified: Yes (family at bedside at time of )
--- NOTE | 2024-10-26 00:24 | PTCARENOTE ---
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 Pt condition quickly deteriorated, maxed on vasopressors shortly into start of shift. Son and daughter at bedside, decision made by them to move forward with comfort care. Pt extubated, comfort
care measures.
Pt , postmortem care performed. [facility] called. Pt prosthetic sent with patient to Room M.
[2024-10-26 07:51] LABS: Glucose - Point of Care 148 mg/dl (70-99)
== END 2024-10-25 21:17 | disposition expired | DRG 871 ==
LOC: ICU 13:03
PROVIDERS: Internal Medicine; Nurse Practitioner Family; Nurse Practitioner Primary Care; ADMITTING PHYSICIAN Hospitalist; ATTENDING PHYSICIAN Family Medicine; CONSULT PHYSICIAN Internal Medicine; CONSULT PHYSICIAN Internal Medicine Infectious Disease; CONSULT PHYSICIAN Specialist; EMERGENCY PHYSICIAN Emergency Medicine; FAMILY PHYSICIAN Internal Medicine; OTHER PHYSICIAN Specialist
PROC: 4B02XTZ Measurement of Cardiac Defibrillator, External Approach (ICD-10-PCS; 2024-10-22)
PROC: B543ZZA Ultrasonography of Right Jugular Veins, Guidance (ICD-10-PCS; 2024-10-23)
PROC: B546ZZA Ultrasonography of Right Subclavian Vein, Guidance (ICD-10-PCS; 2024-10-23)
PROC: 05H533Z Insertion of Infusion Device into Right Subclavian Vein, Percutaneous Approach (ICD-10-PCS; 2024-10-23)
PROC: 05HM33Z Insertion of Infusion Device into Right Internal Jugular Vein, Percutaneous Approach (ICD-10-PCS; 2024-10-23)
DX: A41.9 Sepsis, unspecified organism (principal); J18.9 Pneumonia, unspecified organism; K72.00 Acute and subacute hepatic failure without coma; J96.01 Acute respiratory failure with hypoxia; R65.21 Severe sepsis with septic shock; I50.22 Chronic systolic (congestive) heart failure; E85.4 Organ-limited amyloidosis; N17.9 Acute kidney failure, unspecified; E87.4 Mixed disorder of acid-base balance; I47.20 Ventricular tachycardia, unspecified; E87.1 Hypo-osmolality and hyponatremia; J44.0 Chronic obstructive pulmonary disease with (acute) lower respiratory infection; C92.10 Chronic myeloid leukemia, BCR/ABL-positive, not having achieved remission; R64 Cachexia; K31.1 Adult hypertrophic pyloric stenosis; Z68.1 Body mass index [BMI] 19.9 or less, adult; I5A Non-ischemic myocardial injury (non-traumatic); I43 Cardiomyopathy in diseases classified elsewhere; R57.0 Cardiogenic shock; I48.0 Paroxysmal atrial fibrillation; Z95.810 Presence of automatic (implantable) cardiac defibrillator; I11.0 Hypertensive heart disease with heart failure; D69.6 Thrombocytopenia, unspecified; I73.9 Peripheral vascular disease, unspecified; Z95.820 Peripheral vascular angioplasty status with implants and grafts; Z89.512 Acquired absence of left leg below knee; Z85.51 Personal history of malignant neoplasm of bladder; Z88.8 Allergy status to other drugs, medicaments and biological substances; E78.00 Pure hypercholesterolemia, unspecified; K59.00 Constipation, unspecified; Z79.82 Long term (current) use of aspirin; I44.7 Left bundle-branch block, unspecified; G89.29 Other chronic pain; Z91.199 Patient's noncompliance with other medical treatment and regimen due to unspecified reason; Z95.5 Presence of coronary angioplasty implant and graft; Z96.653 Presence of artificial knee joint, bilateral; Z96.612 Presence of left artificial shoulder joint; Z87.891 Personal history of nicotine dependence; E87.5 Hyperkalemia; R62.7 Adult failure to thrive; K21.00 Gastro-esophageal reflux disease with esophagitis, without bleeding; I25.10 Atherosclerotic heart disease of native coronary artery without angina pectoris; Z85.828 Personal history of other malignant neoplasm of skin; Z79.899 Other long term (current) drug therapy; Z79.84 Long term (current) use of oral hypoglycemic drugs; Z79.01 Long term (current) use of anticoagulants; N40.0 Benign prostatic hyperplasia without lower urinary tract symptoms; Z91.81 History of falling; G54.6 Phantom limb syndrome with pain; E86.1 Hypovolemia; Z85.72 Personal history of non-Hodgkin lymphomas; Z11.52 Encounter for screening for COVID-19
CPT/HCPCS: 93308; 36600; 71045; 74018; 74176; 80048; 80053; 80076; 80202; 81003; 81015; 82140; 82330; 82550; 82570; 82805; 82962; 83036; 83605; 83735; 83880; 84100; 84300; 84484; 85025; 85027; 85384; 85610; 85730; 86850; 86900; 86901; 87040; 87070; 87502; 87811; 93005; 93321; 93325; 94002; 94003; 96361; 96374; 96375; 99291; 99292